=== PATIENT | female | born 1945 | race Caucasian/White ===

== ENCOUNTER → 2018-01-02 15:05 | Outpatient (CLI) | payer OTHER, SELFPAY ==
[2018-01-02 15:24] LABS: Add Manual Diff / Slide Review NO; Basophils Percent Auto 0.8 % (0-2); Eosinophils Percent Auto 1.3 % (2-4); Hematocrit 43.4 % (36-46); Hemoglobin 14.9 g/dL (12.0-16.0); Lymphocytes Percent Auto 21.4 % (25-40); Mean Corpuscular HGB Conc 34.4 % (30-36); Monocytes Percent Auto 9.3 % (3-14); Neutrophils Absolute Auto 4200 /uL (3000-5900); Neutrophils Percent Auto 67.2 % (50-75); Platelet Count 220 X10^3/uL (150-400); Red Blood Cell Count 4.52 X10^6/uL (4.0-5.2); Red Cell Distribution Width 12.9 % (11.6-14.8); White Blood Cell Count 6.2 X10^3/uL (4.5-11.0)
[2018-01-02 15:39] LABS: Alanine Aminotransferase 23 IU/L (9-52); Albumin Globulin Ratio 1.4 (1.0-2.8); Alkaline Phosphatase 49 U/L (38-126); Aspartate Aminotransferase 20 IU/L (14-36); BUN Creatinine Ratio 18.9 (6-22); Bilirubin Total 0.3 mg/dL (0.2-1.3); Blood Urea Nitrogen 17 mg/dL (7-17); Calcium 9.1 mg/dL (8.4-10.2); Carbon Dioxide 29 mmol/L (22-32); Chloride 101 mmol/L (98-107); Estimated Glomerular Filt Rate > 60.0 mL/min (>60); Globulin 2.9 g/dL (1.7-4.1); Glucose 118 mg/dL (80-110); HEMOLYSIS < 15 (0-50); Potassium 4.7 mmol/L (3.4-5.1); Sodium 140 mmol/L (137-145); Total Protein 6.9 g/dL (6.3-8.2)
[2018-01-04 15:24] LABS: Cancer Antigen 27.29 12 U/mL (< 38)
== END ==
PROVIDERS: Family Provider Family Medicine; PCP Family Medicine; Visit Provider Nurse Practitioner Gerontology
DX: C50.912 Malignant neoplasm of unspecified site of left female breast (principal)
CPT/HCPCS: 36415; 80053; 85025; 86300

== ENCOUNTER → 2018-07-25 11:04 | Outpatient (CLI) | payer OTHER, SELFPAY ==
--- NOTE | 2018-07-25 | DI.MG.S_ITS ---
BILATERAL DIGITAL SCREENING MAMMOGRAM 3D/2D WITH CAD: 07/25/2018 CLINICAL: Routine screening. Personal history of left breast cancer. Comparison is made to exams dated: 07/13/2017 mammogram, 07/06/2016 mammogram, and 06/30/2015 mammogram - [facility]. There are scattered fibroglandular elements in both breasts. Current study was also evaluated with a Computer Aided Detection (CAD) system. There are benign post operative findings in the left breast. There also are benign calcifications in the left breast. No significant masses, calcifications, or other findings are seen in either breast. There has been no significant interval change. IMPRESSION: There is no mammographic evidence of malignancy. A 1 year screening mammogram is recommended. This exam was interpreted at Station ID: [id number]. NOTE: For mammograms, a report in lay terms will be sent to the patient. Approximately 15% of breast malignancies will not be visualized mammographically. In the management of a palpable breast mass, a negative mammogram must not discourage biopsy of a clinically suspicious lesion. Electronically Signed By: Johnny guerrero/[email or web address]:07/25/2018 16:27:17 copy to: Mara Carter letter sent: Normal Exam ACR BI-RADS Category 2: Benign Finding(s) 3342F
[2018-07-25 11:26] LABS: Add Manual Diff / Slide Review NO; Basophils Absolute Auto 100 /uL (0-100); Basophils Percent Auto 1.3 % (0-2); Eosinophils Absolute Auto 100 /uL (0-450); Eosinophils Percent Auto 2.6 % (2-4); Hematocrit 46.7 % (36-46); Hemoglobin 15.6 g/dL (12.0-16.0); Lymphocytes Absolute Auto 1300 /uL (1100-4500); Lymphocytes Percent Auto 26.6 % (25-40); Mean Corpuscular HGB Conc 33.4 % (30-36); Mean Corpuscular Hemoglobin 32.1 PG (26-34); Mean Corpuscular Volume 96.1 fL (80-100); Monocytes Absolute Auto 700 /uL (0-900); Monocytes Percent Auto 14.8 % (3-14); Neutrophils Absolute Auto 2700 /uL (1500-7000); Neutrophils Percent Auto 54.7 % (50-75); Platelet Count 229 X10^3/uL (150-400); Red Blood Cell Count 4.86 X10^6/uL (4.0-5.2); Red Cell Distribution Width 13.1 % (11.6-14.8); White Blood Cell Count 4.9 X10^3/uL (4.5-11.0)
[2018-07-25 11:48] LABS: Alanine Aminotransferase 23 IU/L (9-52); Albumin 4.2 g/dL (3.5-5.0); Albumin Globulin Ratio 1.4 (1.0-2.8); Alkaline Phosphatase 50 U/L (38-126); Aspartate Aminotransferase 20 IU/L (14-36); BUN Creatinine Ratio 23.8 (6-22); Bilirubin Total 0.4 mg/dL (0.2-1.3); Blood Urea Nitrogen 19 mg/dL (7-17); Carbon Dioxide 26 mmol/L (22-32); Chloride 102 mmol/L (98-107); Estimated Glomerular Filt Rate > 60.0 mL/min (>60); Globulin 3.1 g/dL (1.7-4.1); Glucose 102 mg/dL (80-110); HEMOLYSIS 18 (0-50); Potassium 4.4 mmol/L (3.4-5.1); Sodium 138 mmol/L (137-145); Total Protein 7.3 g/dL (6.3-8.2)
[2018-07-28 19:49] LABS: Cancer Antigen 27.29 13 U/mL (< 38)
== END ==
PROVIDERS: Family Provider Family Medicine; PCP Family Medicine; Visit Provider Nurse Practitioner Gerontology
DX: Z12.31 Encounter for screening mammogram for malignant neoplasm of breast (principal); Z85.3 Personal history of malignant neoplasm of breast
CPT/HCPCS: 36415; 77063; 77067; 80053; 85025; 86300

== ENCOUNTER 2019-04-06 14:32 | Emergency (ER) | payer OTHER, SELFPAY ==
--- NOTE | 2019-04-06 14:36 | ED.UPPEXIN ---
HPI - Extremity Injury (Upper) General Stated Complaint: fall, left shoulder/arm pain Time Seen by Provider: 04/06/19 14:36 Related Data Home Medications Medication Instructions Recorded Confirmed ASCORBIC ACID (#VITAMIN C) 500 mg PO Q DAY #0 01/24/13 08/01/18 acetaminophen [Tylenol Extra 1,000 mg PO Q4H #0 01/24/13 08/01/18 Strength] pseudoephedrine HCl 60 mg PO Q6HP #0 01/24/13 08/01/18 levothyroxine [Synthroid] 88 mcg PO QAM #0 03/24/16 08/01/18 VITAMIN D (Vitamin D3) 1,000 iu PO QDAY #0 07/19/16 08/01/18 [XYZAL] 1 cap PO DAILY #0 01/31/17 08/01/18 triamcinolone acetonide 1 brian TOPICAL PRN PRN #0 07/18/17 08/01/18 Previous Rx's Medication Instructions Recorded ibuprofen 200 mg PO NEEDED #2 01/24/13 Allergies Allergy/AdvReac Type Severity Reaction Status Date / Time cephalexin Allergy Unknown Verified 08/01/18 11:18 clindamycin Allergy Unknown Verified 08/01/18 11:18 Sulfa (Sulfonamide AdvReac Intermediate PASSED OUT Verified 08/01/18 11:18 Antibiotics) PRESERVATIVES Allergy Unknown Uncoded 10/05/17 12:02 SEASONAL Allergy Unknown Uncoded 10/05/17 12:02 Discharge Plan Departure Prescriptions: No Action ASCORBIC ACID (#VITAMIN C) 500 mg PO Q DAY Qty: 0 RF: 0 acetaminophen [Tylenol Extra Strength] 500 MG tablet 1,000 mg PO Q4H Qty: 0 RF: 0 pseudoephedrine HCl 30 MG tablet 60 mg PO Q6HP Qty: 0 RF: 0 ibuprofen 200 MG tablet 200 mg PO NEEDED Qty: 2 RF: 0 levothyroxine [Synthroid] 88 MCG tablet 88 mcg PO QAM Qty: 0 RF: 0 VITAMIN D (Vitamin D3) 1,000 iu PO QDAY Qty: 0 RF: 0 [XYZAL] 1 cap PO DAILY Qty: 0 RF: 0 triamcinolone acetonide 0.1 % cream 1 brian Topical PRN PRN (Reason: unknown) Qty: 0 RF: 0
[2019-04-06 14:38] VITALS: BP 144/75; PULSE 87; RESP 18; TEMP 36.2; O2SAT 100
--- NOTE | 2019-04-06 14:59 | DI.CT.S_ITS ---
PROCEDURE: CT HEAD/BRAIN WO CON INDICATIONS: fall/ hit head/ altered, ASA 81 mg daily TECHNIQUE: Noncontrast 4.5 mm thick angled axial sections acquired from the foramen magnum to the vertex, with coronal and sagittal reformats. For radiation dose reduction, the following was used: automated exposure control, adjustment of mA and/or kV according to patient size. COMPARISON: [facility], CT, SINUS SCREEN WO CONTRAST, 11/02/2012, 11:26. [facility], CT, HEAD WITHOUT CONTRAST, 09/28/2011, 11:11. FINDINGS: Image quality: Excellent. CSF spaces: Basal cisterns are patent. No extra-axial fluid collections. The ventricles are symmetric in size and shape. Brain: No intracranial bleeds or masses. There is cerebral volume loss for age, with resultant ventricular and sulcal prominence. There are periventricular and deep white matter chronic small vessel ischemic changes. There is intracranial internal carotid artery atherosclerosis. Skull and face: Calvarium and visualized facial bones appear intact, without suspicious lesions. Sinuses: Visualized sinuses and mastoids are clear. IMPRESSION: No acute intracranial hemorrhage is seen. No acute intracranial process is seen. Note is made of age-appropriate brain parenchymal volume loss and chronic small vessel ischemic changes. Dictated by: Alex Walton M.D. on 04/06/2019 at 14:48 Approved by: Alex Walton M.D. on 04/06/2019 at 14:49
--- NOTE | 2019-04-06 15:00 | DI.RAD.S_ITS ---
PROCEDURE: XR HUMERUS LT 2V INDICATIONS: fall / pain houlder and mid humerus. TECHNIQUE: 2 views of the humerus were acquired. COMPARISON: None. FINDINGS: Bones: No fractures or dislocations except that the humeral head and neck reviously described. No suspicious bony lesions. Soft tissues: No suspicious soft tissue calcifications. IMPRESSION: The humerus is partially visualized over its full length, in this patient with severe comminuted humeral head and neck fracture. The elbow is seen on the oblique lateral view only. The shaft of the humerus is not fractured. Dictated by: Liam Smyth M.D. on 04/06/2019 at 16:11 Approved by: Liam Smyth M.D. on 04/06/2019 at 16:12
--- NOTE | 2019-04-06 15:00 | DI.RAD.S_ITS ---
PROCEDURE: XR SHOULDER LT MIN 2V INDICATIONS: fall / pain houlder and mid humerus. TECHNIQUE: 2 views of the shoulder were acquired. COMPARISON: None. FINDINGS: Bones: No dislocations. No suspicious bony lesions. Visualized ribs appear intact. There is a complex comminuted impacted intra-articular fracture involving the left humeral head and neck. Soft tissues: No suspicious soft tissue calcifications. IMPRESSION: Prominently comminuted and displaced left humeral head/neck fracture. Dictated by: Liam Smyth M.D. on 04/06/2019 at 16:10 Approved by: Liam Smyth M.D. on 04/06/2019 at 16:11
--- NOTE | 2019-04-06 15:24 | PC.NURSE ---
pt has good pulses in her left arm. pt is in a large amount of pain. aware.
[2019-04-06 15:42] VITALS: BP 152/107; PULSE 84; RESP 18; O2SAT 99
[2019-04-06 15:46] LABS: Add Manual Diff / Slide Review NO; Basophils Absolute Auto 0 /uL (0-100); Basophils Percent Auto 0.5 % (0-2); Eosinophils Absolute Auto 0 /uL (0-450); Eosinophils Percent Auto 0.3 % (2-4); Hematocrit 47.6 % (36-46); Hemoglobin 16.3 g/dL (12.0-16.0); Lymphocytes Absolute Auto 1200 /uL (1100-4500); Lymphocytes Percent Auto 15.8 % (25-40); Mean Corpuscular HGB Conc 34.4 % (30-36); Mean Corpuscular Hemoglobin 32.5 PG (26-34); Mean Corpuscular Volume 94.7 fL (80-100); Monocytes Absolute Auto 600 /uL (0-900); Monocytes Percent Auto 7.9 % (3-14); Neutrophils Absolute Auto 5500 /uL (1500-7000); Neutrophils Percent Auto 75.5 % (50-75); Platelet Count 240 X10^3/uL (150-400); Red Blood Cell Count 5.02 X10^6/uL (4.0-5.2); Red Cell Distribution Width 13.3 % (11.6-14.8); White Blood Cell Count 7.3 X10^3/uL (4.5-11.0)
[2019-04-06] MEDS: HYDROMORPHONE 1 MG INJ IV (15:59)
[2019-04-06 16:01] LABS: Alanine Aminotransferase 28 IU/L (9-52); Albumin 4.7 g/dL (3.5-5.0); Albumin Globulin Ratio 1.4 (1.0-2.8); Alkaline Phosphatase 68 U/L (38-126); Aspartate Aminotransferase 27 IU/L (14-36); BUN Creatinine Ratio 17.8 (6-22); Bilirubin Total 0.6 mg/dL (0.2-1.3); Blood Urea Nitrogen 16 mg/dL (7-17); Calcium 9.6 mg/dL (8.4-10.2); Carbon Dioxide 23 mmol/L (22-32); Chloride 98 mmol/L (98-107); Estimated Glomerular Filt Rate > 60.0 mL/min (>60); Globulin 3.4 g/dL (1.7-4.1); Glucose 149 mg/dL (80-110); HEMOLYSIS < 15 (0-50); Potassium 3.9 mmol/L (3.4-5.1); Sodium 137 mmol/L (137-145); Total Protein 8.1 g/dL (6.3-8.2)
[2019-04-06 16:03] LABS: PTT Partial Thromboplastin Tim 28 SECONDS (26.4-36.2)
--- NOTE | 2019-04-06 16:09 | ED.FALL ---
HPI - Fall General Chief Complaint: Fall Stated Complaint: fall, left shoulder/arm pain Time Seen by Provider: 04/06/19 14:39 Source: patient Mode of arrival: Wheelchair Limitations: no limitations History of Present Illness HPI Narrative: 73-year-old female nonsmoker presents by EMS for evaluation of severe left arm pain after a ground level mechanical fall just prior to arrival. She was in her normal state of health and feeling fine when she was walking up the driveway and tripped, falling onto her left arm. She did not hit her head as far she knows and has no neck pain. She denies any back pain and states her hips and lower extremities are fine. She has significant pain in her left shoulder, significantly worse with any range of motion. She denies any numbness, tingling or weakness. She denies any prodromal symptoms such as dizziness, weakness or lightheadedness. She did become near syncopal after the fall, presumably secondary to pain MD complaint: fall Onset (ago): minute(s) Fall from: standing Fall witnessed: no Place fall occurred: home Loss of consciousness: none Prolonged down time: no Symptoms prior to fall: none Context: tripped/slipped Related Data Home Medications Medication Instructions Recorded Confirmed acetaminophen [Tylenol Extra 1,000 mg PO Q4H PRN #0 01/24/13 04/06/19 Strength] ascorbic acid (vitamin C) 500 mg PO DAILY #0 01/24/13 04/06/19 levothyroxine [Synthroid] 88 mcg PO QAM #0 03/24/16 04/06/19 levocetirizine [Xyzal] 5 mg PO DAILY #0 01/31/17 04/06/19 triamcinolone acetonide 1 brian TOPICAL PRN PRN #0 07/18/17 04/06/19 aspirin 81 mg PO DAILY 04/06/19 04/06/19 calcium carbonate [Calcium 600] 600 mg PO DAILY 04/06/19 04/06/19 cholecalciferol (vitamin D3) 1,000 unit PO DAILY 04/06/19 04/06/19 [Vitamin D3] fluticasone propionate 2 spray INTRANASAL DAILY 04/06/19 04/06/19 ibuprofen 200 mg PO NEEDED PRN 04/06/19 04/06/19 ranitidine HCl 150 mg PO DAILY 04/06/19 04/06/19 Previous Rx's Medication Instructions Recorded hydrocodone-acetaminophen 1 tab PO Q4-6H PRN #30 tab 04/06/19 ondansetron 4 mg PO TID-QID PRN #10 tab 04/06/19 Allergies Allergy/AdvReac Type Severity Reaction Status Date / Time cephalexin Allergy Unknown Verified 04/06/19 14:43 clindamycin Allergy Unknown Verified 04/06/19 14:43 Sulfa (Sulfonamide AdvReac Intermediate PASSED OUT Verified 04/06/19 14:43 Antibiotics) PRESERVATIVES Allergy Unknown Uncoded 10/05/17 12:02 SEASONAL Allergy Unknown Uncoded 10/05/17 12:02 Review of Systems Constitutional Constitutional: Denies chills, Denies fatigue, Denies fever(s), Denies frequent falls, Denies lethargy and Denies weakness Eyes Eyes: Denies change in vision, Denies eye discharge, Denies irritation and Denies loss of vision ENT Ears, Nose, Mouth, and Throat: Denies change in voice, Denies dizziness, Denies neck pain, Denies sore throat and Denies throat swelling Cardiovascular Cardiovascular: Denies chest pain, Denies irregular heart rhythm, Denies lightheadedness, Denies palpitations, Denies dyspnea, Denies dyspnea on exertion and Denies orthopnea Respiratory Respiratory: Denies cough, Denies dyspnea, Denies dyspnea on exertion and Denies wheezing Gastrointestinal Gastrointestinal: Denies abdominal pain, Denies change in bowel habits, Denies diarrhea, Denies nausea and Denies vomiting Genitourinary Genitourinary: Denies hematuria, Denies flank pain, Denies urinary incontinence and Denies urinary urgency Musculoskeletal Musculoskeletal: Denies back pain, Reports limited range of motion, Denies muscle weakness, Denies neck pain, Denies numbness and Denies tingling Integumentary/Breasts Skin/Breast: Denies pruritus, Denies erythema, Denies rash and Denies wounds Neurologic Neurologic: Denies behavioral changes, Denies confusion, Denies dizziness, Denies frequent falls, Denies loss of vision, Denies numbness, Denies tingling and Denies weakness Psychiatric Psychiatric: Denies anxiety, Denies behavioral changes, Denies confusion, Denies depression, Denies homicidal ideation and Denies suicidal ideation Endocrine Endocrine: Denies fatigue, Denies flushing and Denies palpitations Hematologic/Lymphatic Hematologic/Lymphatic: Denies easy bruising Allergic/Immunologic Allergic/Immunologic: Denies urticaria, Denies throat swelling and Denies wheezing Patient History Medical/Surgical History Social History Smoking Status: Never smoker Family/Social History Social History Smoking Status: Never smoker alcohol intake frequency: 0-2 drinks per day Substance Use Type: does not use Exam Narrative Exam Narrative: GENERAL: [73] year old patient appears stated age. Well-nourished, well-developed patient, in mild distress. Obviously in pain. GCS 15 HEAD: Subtle abrasion on left congregational, no laceration or evidence of depressed skull fracture. Atraumatic. Normocephalic. EYES: Pupils equal round and reactive. Extraocular motions intact. No scleral icterus. No injection or drainage. ENT: Nose without bleeding, purulent drainage. Throat without erythema, tonsillar hypertrophy or exudate. Airway patent. NECK: Trachea midline. Non tender CARDIOVASCULAR: Regular rate and rhythm without murmurs, gallops, or rubs. RESPIRATORY: Clear to auscultation. Breath sounds equal bilaterally. No wheezes, rales, or rhonchi. GASTROINTESTINAL: Abdomen soft, non-tender, nondistended. EXTREMITIES: Significant pain with any range of motion of left upper extremity. This is closed, isolated neurovascularly intact. No pain with palpation to elbow or wrist. BACK: Nontender without deformity or crepitance. No flank tenderness. NEURO: AOx3. SKIN: No rash or erythema of visible areas Initial Vital Signs Initial Vital Signs: Vital Signs Temperature 97.2 F L 04/06/19 14:38 Pulse Rate 87 04/06/19 14:38 Respiratory Rate 18 04/06/19 14:38 Blood Pressure 144/75 H 04/06/19 14:38 Pulse Oximetry 100 04/06/19 14:38 Const General: cooperative and well developed Nutritional Appearance: well nourished Orientation: alert, awake, oriented x3 and not confused [facility] Head: normocephalic and atraumatic Ears: external ears normal and TM's normal bilaterally Nose: external nose normal and No nasal discharge Face and sinus: sinuses nontender, face symmetric, no sinus tenderness and No dry mucous membranes Mouth: oral mucosae normal and moist mucous membranes Teeth and gingiva: dentition normal Throat: tonsils normal and uvula midline Eyes General: appearance normal, both eyes and all related structures Eyelids: eyelids normal Conjunctivae: conjunctivae normal Sclera: sclerae normal Pupils: PERRL EOM: EOM intact bilaterally Neck Neck: normal visual inspection, trachea midline, No lymphadenopathy, No midline deformity and No JVD Lymphatic: No lymphedema Chest Chest: normal inspection of the chest Resp Effort & Inspection: normal respiratory effort, able to speak in complete sentences, no respiratory distress and no use of accessory muscles Auscultation: clear to auscultation bilaterally, no rales, no rhonchi and no wheezes Cardio Rate: regular rate Rhythm: regular rhythm Heart Sounds: no click, no gallops, no murmurs and no rubs Pulses: normal peripheral pulses GI Inspection: non-distended Palpation: soft, no hepatosplenomegaly, No guarding, No pulsatile mass and No tender Auscultation: normal bowel sounds Back/Spine/Pelvis Back: No CVA tenderness Cervical Spine: cervical ROM normal and No pain with cervical ROM Thoracic/Lumbar Spine: thoracic and lumbar spine normal to inspection Skin General: no rashes or lesions noted, No jaundice and No petechiae Neuro General: alert, oriented x3, gait normal and no focal motor deficits Speech: speech normal Extrem General: full ROM, no clubbing, cyanosis or edema, no pedal edema and no calf tenderness Psych Appearance: well kempt Mental Status: mental status grossly normal Attitude: cooperative Thought Content: normal and suicidality Judgment: judgment good Procedures Orthopedic Splinting/Casting Injury #1: Side: right Upper Extremity Injury Location: shoulder Upper Extremity Immobilizer: sling/shoulder immobilizer Post splinting neuro exam: intact Post splinting vascular exam: intact Placed by: Nursing Course Orders Ordered: ED Orders 04/06/19 13:59 Complete Blood Count AUTO DIFF Stat Comprehensive Metabolic Panel Stat Partial Thromboplastin Time Stat Prothrombin Time INR Stat 04/06/19 14:59 CT head/brain wo con Stat 04/06/19 15:00 XR humerus LT 2V Stat XR shoulder LT min 2V Stat 04/06/19 16:51 CT UE LT wo con Stat Discontinued Medications Hydromorphone HCl (Dilaudid) 1 mg IV NOW ONE Stop: 04/06/19 15:52 Last Admin: 04/06/19 15:59 Dose: 1 mg Documented by: KAREN Hydromorphone HCl (Dilaudid) 1 mg IV NOW ONE Stop: 04/06/19 15:53 Last Admin: 04/06/19 15:53 Dose: Not Given Documented by: KAREN Midazolam HCl (Versed) 1 mg IV NOW ONE Stop: 04/06/19 16:44 Last Admin: 04/06/19 16:54 Dose: 1 mg Documented by: KAREN Midazolam HCl (Versed) 1 mg IV NOW ONE Stop: 04/06/19 17:03 Last Admin: 04/06/19 17:02 Dose: 1 mg Documented by: KAREN Vital Signs Vital signs: Vital Signs - 8 hr 04/06/19 14:38 04/06/19 15:42 04/06/19 16:30 Temperature 97.2 F L Pulse Rate 87 84 98 H Respiratory Rate 18 18 20 Blood Pressure 144/75 H Blood Pressure [Right Wrist] 152/107 H 146/79 H Pulse Oximetry 100 99 100 04/06/19 17:28 04/06/19 17:33 04/06/19 18:30 Temperature Pulse Rate 76 65 71 Respiratory Rate 20 11 L 16 Blood Pressure Blood Pressure [Right Wrist] 138/82 97/63 95/67 Pulse Oximetry 99 90 L 100 MDM - Fall Lab Data Result diagrams: 04/06/19 13:59 04/06/19 13:59 Labs: Lab Results 04/06/19 04/06/19 04/06/19 Range/Units 13:59 13:59 13:59 WBC 7.3 (4.5-11.0) X10^3/uL RBC 5.02 (4.0-5.2) X10^6/uL Hgb 16.3 H (12.0-16.0) g/dL Hct 47.6 H (36-46) % MCV 94.7 (80-100) fL MCH 32.5 (26-34) PG MCHC 34.4 (30-36) % RDW 13.3 (11.6-14.8) % Plt Count 240 (150-400) X10^3/uL Neut % (Auto) 75.5 H (50-75) % Lymph % (Auto) 15.8 L (25-40) % Price % (Auto) 7.9 (3-14) % Eos % (Auto) 0.3 L (2-4) % Baso % (Auto) 0.5 (0-2) % Neut # (Auto) 5500 (9427-1663) /uL Lymph # (Auto) 1200 (7042-3535) /uL Price # (Auto) 600 (0-900) /uL Eos # (Auto) 0 (0-450) /uL Baso # (Auto) 0 (0-100) /uL PT 11.0 (10.1-12.7) SECONDS INR 1.0 (0.9-1.3) APTT 28 (26.4-36.2) SECONDS Sodium 137 (137-145) mmol/L Potassium 3.9 (3.4-5.1) mmol/L Chloride 98 (98-107) mmol/L Carbon Dioxide 23 (22-32) mmol/L BUN 16 (7-17) mg/dL Creatinine 0.90 (0.52-1.04) mg/dL Estimated GFR > 60.0 (>60) mL/min BUN/Creatinine Ratio 17.8 (6-22) Glucose 149 H (80-110) mg/dL Calcium 9.6 (8.4-10.2) mg/dL Total Bilirubin 0.6 (0.2-1.3) mg/dL AST 27 (14-36) IU/L ALT 28 (9-52) IU/L Alkaline Phosphatase 68 (38-126) U/L Total Protein 8.1 (6.3-8.2) g/dL Albumin 4.7 (3.5-5.0) g/dL Globulin 3.4 (1.7-4.1) g/dL Albumin/Globulin Ratio 1.4 (1.0-2.8) Imaging Data Humerus / Shoulder: Radiologist's impression: [address] [address] XRay Report Signed Patient: Callie Berkowitz FMR#: [id number] : 7Acct:[id number] Age/Sex: 73 / FDate of Service: 04/06/19 Loc: ED Accession Number: [id number] Procedure: XR humerus LT 2V Ordering Provider: Manuel Sahu D.O. PROCEDURE: XR HUMERUS LT 2V INDICATIONS: fall / pain houlder and mid humerus. TECHNIQUE: 2 views of the humerus were acquired. COMPARISON: None. FINDINGS: Bones: No fractures or dislocations except that the humeral head and neck reviously described. No suspicious bony lesions. Soft tissues: No suspicious soft tissue calcifications. IMPRESSION: The humerus is partially visualized over its full length, in this patient with severe comminuted humeral head and neck fracture. The elbow is seen on the oblique lateral view only. The shaft of the humerus is not fractured. Dictated by: Liam Smyth M.D. on 04/06/2019 at 16:11 Approved by: Liam Smyth M.D. on 04/06/2019 at 16:12 Chart Viewer Diagnostics DATE TYPE STATUS AUTHOR Hx 04/06/19 15:00 Liam Smyth 04/06/19 15:00 Liam Smyth 04/06/19 14:59 Alex Walton 07/25/18 00:00 RekhaCallie Terrazas 73, F1 [facility], Main ED R04 Fall Search Chart No Data to Display NF - Not included in interaction checking PASSED OUT ONSET Today 15:42 Callie Berkowitz 73 F 1945 [place] [address] XRay Report Signed Patient: Callie Berkowitz FMR#: [id number] : [id number]:[id number] Age/Sex: 73 / FDate of Service: 04/06/19 Loc: ED Accession Number: [id number] Procedure: XR shoulder LT min 2V Ordering Provider: Manuel Sahu D.O. PROCEDURE: XR SHOULDER LT MIN 2V INDICATIONS: fall / pain houlder and mid humerus. TECHNIQUE: 2 views of the shoulder were acquired. COMPARISON: None. FINDINGS: Bones: No dislocations. No suspicious bony lesions. Visualized ribs appear intact. There is a complex comminuted impacted intra-articular fracture involving the left humeral head and neck. Soft tissues: No suspicious soft tissue calcifications. IMPRESSION: Prominently comminuted and displaced left humeral head/neck fracture. Dictated by: Liam Smyth M.D. on 04/06/2019 at 16:10 Approved by: Liam Smyth M.D. on 04/06/2019 at 16:11 Discharge Plan Departure Patient Disposition: Home Clinical Impression: Fracture of proximal end of humerus Qualifiers: Encounter type: initial encounter Fracture type: closed Fracture morphology: other fracture Fracture alignment: displaced Laterality: left Qualified Code(s): S42.292A - Other displaced fracture of upper end of left humerus, initial encounter for closed fracture Discharge Date/Time: 04/06/19 18:54 Instructions: Humeral Shaft Fracture Activity Restrictions/Additional Instructions: *You have been diagnosed with [comminuted left proximal humerus fracture] *What to do: *Take medications as directed *Follow up with your primary care provider in 2-3 days, call for an appointment. Let them know you were seen in the Emergency Department and that we ask that you be seen in follow up *Return to ER if you should have any new, worsening or concerning symptoms, such as [increasing pain, numbness, tingling, weakness or other bothersome symptoms] Prescriptions: New hydrocodone-acetaminophen 5-325 mg tablet 1 tab PO Q4-6H PRN (Reason: pain) Qty: 30 RF: 0 ondansetron 4 mg tablet,disintegrating 4 mg PO TID-QID PRN (Reason: nausea and vomiting) Qty: 10 RF: 0 No Action acetaminophen [Tylenol Extra Strength] 500 MG tablet 1,000 mg PO Q4H PRN (Reason: PAIN) Qty: 0 RF: 0 ascorbic acid (vitamin C) 500 mg Tablet 500 mg PO DAILY Qty: 0 RF: 0 levothyroxine [Synthroid] 88 MCG tablet 88 mcg PO QAM Qty: 0 RF: 0 levocetirizine [Xyzal] 5 mg Tablet 5 mg PO DAILY Qty: 0 RF: 0 triamcinolone acetonide 0.1 % cream 1 brian Topical PRN PRN (Reason: unknown) Qty: 0 RF: 0 aspirin 81 mg Tablet,Chewable 81 mg PO DAILY RF: 0 calcium carbonate [Calcium 600] 600 mg calcium (1,500 mg) Tablet 600 mg PO DAILY RF: 0 ranitidine HCl 150 mg Tablet 150 mg PO DAILY RF: 0 fluticasone propionate 50 mcg/actuation [place],Suspension 2 spray INTRANASAL DAILY RF: 0 cholecalciferol (vitamin D3) [Vitamin D3] 1,000 unit Capsule 1,000 unit PO DAILY RF: 0 ibuprofen 200 MG tablet 200 mg PO NEEDED PRN (Reason: PAIN) RF: 0 Referrals: Vanessa Dozier MD [Physician] - Mara Carter MD [Primary Care Provider] -
[2019-04-06 16:30] VITALS: BP 146/79; PULSE 98; RESP 20; O2SAT 100
--- NOTE | 2019-04-06 16:51 | DI.CT.S_ITS ---
PROCEDURE: CT UE LT WO CON INDICATIONS: comminuted prox humerus fx, per ortho TECHNIQUE: Noncontrast 1-1.5 mm thick sections acquired from the acromioclavicular joint to the inferior scapula, with coronal and sagittal reformatting. COMPARISON: [facility], CR, XR HUMERUS LT 2V, 04/06/2019, 15:06. FINDINGS: Image quality: Excellent. Bones: There is a comminuted fracture of the left humeral head and neck. There is associated mild anterior displacement of the humeral shaft component with posterior angulation of the humeral head components. There is also medial displacement of the humeral shaft component by approximately 1.7 cm. There is displacement of the greater tuberosity component by approximately 1.7 cm. The lesser tuberosity component is displaced by 0.6 cm. Findings are compatible with a Neer 3 part fracture. The articular surface of the humeral head appears congruent with the glenoid. Remaining visualized osseous structures appear intact. Soft tissues: There is periarticular soft tissue swelling and edema around the left glenohumeral joint. The visualized lungs demonstrate no pneumothorax. IMPRESSION: 1. Findings compatible with a Neer 3 part comminuted fracture of the left humeral head and neck. Dictated by: Johnny Da Silva M.D. on 04/06/2019 at 17:22 Approved by: Johnny Da Silva M.D. on 04/06/2019 at 17:29
[2019-04-06] MEDS: MIDAZOLAM 2 MG/2 ML VIAL 1 MG IV ×2 (16:54→17:02)
[2019-04-06 17:28] VITALS: BP 138/82; PULSE 76; RESP 20; O2SAT 99
[2019-04-06 17:33] VITALS: BP 97/63; PULSE 65; RESP 11; O2SAT 90
[2019-04-06 18:30] VITALS: BP 95/67; PULSE 71; RESP 16; O2SAT 100
== END 2019-04-06 18:54 | disposition home or self-care (01) ==
PROVIDERS: Emergency Provider Emergency Medicine; Family Provider Family Medicine; PCP Family Medicine
DX: S42.292A Other displaced fracture of upper end of left humerus, initial encounter for closed fracture (principal); S09.90XA Unspecified injury of head, initial encounter; R55 Syncope and collapse; W01.0XXA Fall on same level from slipping, tripping and stumbling without subsequent striking against object, initial encounter
CPT/HCPCS: 36415; 70450; 73030; 73060; 73200; 80053; 85025; 85610; 85730; 96374; 96375; 96376; 99283; 99284; 99285; J1170; J2250

== ENCOUNTER → 2019-04-13 16:27 | Outpatient (CLI) | payer OTHER, SELFPAY ==
[2019-04-13 18:01] LABS: Add Manual Diff / Slide Review NO; Basophils Absolute Auto 0 /uL (0-100); Basophils Percent Auto 0.6 % (0-2); Eosinophils Absolute Auto 0 /uL (0-450); Eosinophils Percent Auto 0.5 % (2-4); Hematocrit 39.8 % (36-46); Hemoglobin 13.5 g/dL (12.0-16.0); Lymphocytes Absolute Auto 1100 /uL (1100-4500); Lymphocytes Percent Auto 17.4 % (25-40); Mean Corpuscular Hemoglobin 32.7 PG (26-34); Mean Corpuscular Volume 96.3 fL (80-100); Monocytes Absolute Auto 700 /uL (0-900); Monocytes Percent Auto 11.5 % (3-14); Neutrophils Absolute Auto 4400 /uL (1500-7000); Platelet Count 291 X10^3/uL (150-400); Red Blood Cell Count 4.13 X10^6/uL (4.0-5.2); Red Cell Distribution Width 13.2 % (11.6-14.8); White Blood Cell Count 6.3 X10^3/uL (4.5-11.0)
[2019-04-13 18:12] LABS: BUN Creatinine Ratio 21.4 (6-22); Blood Urea Nitrogen 15 mg/dL (7-17); Calcium 8.8 mg/dL (8.4-10.2); Carbon Dioxide 28 mmol/L (22-32); Chloride 101 mmol/L (98-107); Estimated Glomerular Filt Rate > 60.0 mL/min (>60); Glucose 113 mg/dL (80-110); HEMOLYSIS 28 (0-50); Potassium 4.5 mmol/L (3.4-5.1); Sodium 137 mmol/L (137-145)
== END ==
PROVIDERS: Family Provider Family Medicine; PCP Family Medicine; Visit Provider Orthopaedic Surgery
DX: Z01.818 Encounter for other preprocedural examination (principal); S42.292A Other displaced fracture of upper end of left humerus, initial encounter for closed fracture
CPT/HCPCS: 36415; 80048; 85025; 93005

== ENCOUNTER 2019-04-19 11:10 | Inpatient (IN) | payer OTHER, SELFPAY ==
[2019-04-17 08:27] VITALS: BMI 28.0
[2019-04-19] VITALS (12 sets, daily range): BP systolic 102–142; BP diastolic 60–86; PULSE 76–88; RESP 15–18; TEMP 35.8–37.2; O2SAT 96–100; BMI 28.0
[2019-04-19] MEDS: LACTATED RINGERS 1,000 ML 100 ML IV ×2 (11:46→15:19)
[2019-04-19] MEDS: VANCOMYCIN 1,000 MG/200 ML PIGGYBACK 200 MG IV (13:25)
--- NOTE | 2019-04-19 13:29 | PM.PREOP ---
Pre-operative Note Interval Note History & Physical reviewed/Exam performed by Physician: Yes Changes to H&P: No
--- NOTE | 2019-04-19 13:36 | SUR.PREOP ---
Block start time [1312] . Monitoring initiated and maintained throughout procedure. Oxygen and medications given per anesthesiologist instructions. Patient remained stable throughout procedure, no adverse reactions noted. Block end time [1330].
[2019-04-19] MEDS: GENTAMICIN 200 MG in SODIUM CHLORIDE 0.9% 100 ML 105 ML IV (13:50)
--- NOTE | 2019-04-19 14:07 | SUR.OPER ---
Beach chair with [place]/Pebbles shoulder positioner. Lower body on padded OR bed. Head in foam padded head cradle, secured with straps. Non-operative arm secured <90 degrees abduction. Pillow under knees. Safety belt at thigh. Cloth tape over blanket over lower legs.
[2019-04-19] MEDS: LIDOCAINE 1% W/EPI 20 ML INJ (14:23)
--- NOTE | 2019-04-19 16:11 | DI.RAD.S_ITS ---
PROCEDURE: XR SHOULDER LT MIN 2V INDICATIONS: TOTAL SHOULDER ATHROPLASTY TECHNIQUE: 2 views of the shoulder were acquired. COMPARISON: [facility], CR, XR SHOULDER 2+ VIEWS LEFT, 04/13/2019, 15:23. [facility], CT, CT UE LT WO CON, 04/06/2019, 16:52. [facility], CR, XR SHOULDER LT MIN 2V, 04/06/2019, 15:06. FINDINGS: Bones: There is left shoulder arthroplasty with prosthesis in anatomic alignment. No suspicious bony lesions. Visualized ribs appear intact. Soft tissues: No suspicious soft tissue calcifications. IMPRESSION: Left shoulder arthroplasty with prosthesis in anatomic alignment. Dictated by: Delmy Matta M.D. on 04/19/2019 at 17:14 Approved by: Delmy Matta M.D. on 04/19/2019 at 17:15
--- NOTE | 2019-04-19 16:14 | P.OP_ITS ---
Operative Date/Time/Diagnoses Date of procedure: 04/19/19 Time of procedure: 14:00 Pre-op diagnosis: Four part proximal humerus fracture Post-op diagnosis: same Procedure & Clinicians Procedure: Reverse total shoulder arthroplasty for proximal humerus fracture Same procedure as scheduled: Yes Indications: Displaced highly comminuted 4 part proximal humerus fracture Surgeon: Arturo Batista Knotting Machine Operator: Ariane Brumfield Anesthesia Type: General and Peripheral nerve block Operative Notes Findings: Highly comminuted displaced 4 part humerus fracture with the greater tuberosity in multiple pieces. The humeral head was facing the glenoid but was devoid of pretty much all soft tissue. No sign of any extension into the glenoid Closure Type: primary Specimen(s): none sent Prosthetic devices, grafts, tissues, transplants, or devices: Arthrex size 7 stem, 24 mm +2 lateralized base plate 4 screws were placed. 25 mm center screw 24 mm locking screw 16 mm locking screw 32 mm locking screw. Thirty-three mm glenoid sphere with +4 lateralization 36 neutral cup. Applied: drain(s) and implant(s) Estimated Blood Loss (mL): 150 Blood products transfused: none Procedure in detail: On date of service, Patient was met in the holding area. The operative site was signed and witnessed by the OR staff. The surgeries once again discussed with the patient and any remaining questions they had were answered fully. Patient was taken back to the operating theater and placed on the operating table in a supine position. Great care was taken to ensure that all bony prominences were properly padded. Patient was then placed into the beach chair position. The head and neck were properly positioned and secured. A timeout was performed verifying patient's name, procedure, and the operative site. The upper extremity was then prepped and draped in the normal sterile fashion. Previously, the bony anatomy and incision were marked out as well as injected with Marcaine with epinephrine. A deltopectoral approach was performed. 10 blade was used to incise the skin and fascial tissue. A deep knife was used to continue sharp dissection until the cephalic vein was visualized. The cephalic vein was dissected free allowing us to expose the deltopectoral interval. This interval was then developed. A [place] elevator was used to free up the deltoid of any scarring both superficially as well as deeply. The vein and the deltoid were taken laterally while the pectoralis was taken medially. This gave us good visualization of the strap muscles. The clavipectoral fascia was removed and the strap muscles were then retracted medially with the pectoralis. There is quite a bit of hematoma from the fracture. This was irrigated. Patient's greater tuberosity was retracted superiorly and posteriorly and multiple pieces. There was 1 large main piece. Sutures were passed through the tuberosity into the rotator cuff which allowed us to mobilize the greater tuberosity and the sutures were left in place when he came to reduce the tuberosity onto the shaft. The head was pretty much stripped of any soft tissue from the fracture and was removed. There was a lesser tuberosity fracture as well. And this was mobilized with the subscapularis using sutures in a similar fashion as the greater tuberosity. With the head removed and the tuberosities tagged with sutures, were able to address the glenoid. No sign of any fracture into the glenoid. Targeting guide was placed in a guidewire was placed in the center of the glenoid. This was then reamed and then a 24 mm base plate was secured with a center screw as well as locking screws. The 33 glenoid sphere was impacted into place and then a 2nd center screw was placed to compress the glenoid sphere on to the base plate. We then turned our attention back to the humerus. The fractured neck site was cleaned up with a rongeur getting rid of any bony spikes. It was then reamed and broached and a size 7 stem provided the best overall fit. +0 cup was placed in the humerus was reduced onto the glenoid sphere. This felt to be a solid reduction and there was not too much laxity as well as not so tight with the arm was over stretched. The components were from each other and the final stem was impacted in. Size 7 stem with the 36 neutral cup. This was then reduced on to the glenoid sphere and the shoulder was taken through range of motion once again was felt to be very stable. We then turned our attention to repairing the tuberosities. With our previous sutures we were able to bring the greater tuber osity back over to the stem and using the suture tunnels on the stem and neck were able to repair the rotator cuff as well as the large greater tuberosity piece back to the stem aligned with the neck. This was done similarly with the subscapularis and lesser tuberosity. Then additional sutures were placed around both the greater and lesser tuberosity for additional fixation to act like a tension band construct to secure the bone on to the implant. Shoulder was taken through range of motion once again, was no sign of any instability of the tuberosity or the rotator cuff repair to the stem. In the shoulder continued to be stable. The wound was then copiously irrigated and closed in layered fashion. Shoulder was then cleaned, dressed, and dried. Patient was placed into a sling and extubated and taken to the PACU in stable fashion. Complications: none Post-operative Condition: stable Disposition: PACU Plan for aftercare: Patient will be in the sling for 6 weeks. Patient's tuberosities were repaired back to the stem and will need to be protected. Okay for patient to come out of the sling to work on range of motion of the wrist and elbow. Patient can do pendulum motions. Okay to engage in passive forward flexion but no external rotation past 0?. No abduction beyond 0? the in the scapular plane.
[2019-04-19] MEDS: LACTATED RINGERS 1,000 ML 125 ML IV (18:18)
[2019-04-19 19:16] LABS: Estimated Glomerular Filt Rate > 60.0 mL/min (>60)
[2019-04-19] MEDS: ACETAMINOPHEN 325 MG TABLET 975 MG PO (19:47)
[2019-04-19] MEDS: DOCUSATE 100 MG CAPSULE PO (21:29)
[2019-04-19] MEDS: MAGNESIUM HYDROXIDE 30 ML UDC PO (21:29)
[2019-04-20 04:00] VITALS: BP 121/78; PULSE 78; RESP 17; TEMP 36.6; O2SAT 97
[2019-04-20] MEDS: LEVOTHYROXINE 88 MCG TABLET PO (05:55)
[2019-04-20 06:23] LABS: Hemoglobin 12.6 g/dL (12.0-16.0); Mean Corpuscular HGB Conc 34.1 % (30-36); Mean Corpuscular Hemoglobin 32.8 PG (26-34); Platelet Count 385 X10^3/uL (150-400); Red Blood Cell Count 3.85 X10^6/uL (4.0-5.2); Red Cell Distribution Width 13.4 % (11.6-14.8); White Blood Cell Count 10.8 X10^3/uL (4.5-11.0)
[2019-04-20 08:15] VITALS: BP 122/82; PULSE 88; RESP 17; TEMP 36.8; O2SAT 99
[2019-04-20] MEDS: ACETAMINOPHEN 325 MG TABLET 975 MG PO (09:54)
--- NOTE | 2019-04-20 11:26 | PT.IIE ---
Current Diagnoses Other displaced fracture of upper end of left humerus, initial encounter for closed fracture (04/19/19) Surgery Performed Operation Date: 04/19/19 13:15 Actual Procedures p Total Shoulder Arthroplasty - Reverse (Left) - Arturo Batista MD Surgical History (Last Updated 04/17/19 @ 09:04 by Linda Crowley, RN) Hx of left mastectomy (Acute) Hx of tubal ligation (Acute) S/P lumpectomy, left breast (Acute ~2012) Medical History (Last Updated 04/17/19 @ 13:42 by Linda Crowley RN) Acid reflux (Acute) Breast cancer, left (Acute ~2012) Port-A-Cath in place (Acute ~06/2012) Right Achilles tendinitis (Acute) Thyroid disease (Acute) Physical Therapy Inpatient Evaluation/Re-Eval M1 PT/OT-IP Prior Functional Status Start: 04/20/19 08:30 Freq: NEEDED Status: Active Protocol: Document 04/20/19 08:45 (Rec: 04/20/19 11:26 [email or web address]) Medical Review Prior Functional Status Medical History Reviewed Yes Diet/Fluid Consistency Regular Communication no deficits noted. able to make needs known Mobility and Gait Pt is independent with all mobility without AD. Activities of Daily Living and IADL's independent with ADLs and IADLs. Pt's assisted in sponge bath after injury. Social History Household Members spouse Living Arrangements House Number of Floors (Floors) One Floor Number of Stairs To Enter/Railing? 2 VISHAL from garage or front entrance without railings Home Environment Standard Height Toilet,Tub/ Shower Doors Employment Status Retired Additional Social History Comment Pt lives with her in [place]. Her is very active and independent who will assist pt after d/c. Pt will participate outpatient PT at [facility]. M2 PT-IP Current Condition Start: 04/20/19 08:30 Freq: NEEDED Status: Active Protocol: Document 04/20/19 08:45 HH (Rec: 04/20/19 11:26 [email or web address]) Physical Therapy Current Condition Current Condition Evaluation Date 04/20/19 Treatment Diagnosis L Reverse TSA, difficulty in self care Onset Date 04/19/19 Precautions Shoulder Precautions Sling,PROM,Internal Rotation to Body,No External Rotation, No Abduction,Forward Flexion to 90 degrees,Pendulums Weight Bearing Status Weight Bearing Status Non-Weight Bearing M3 PT-IP Subjective Start: 04/20/19 08:30 Freq: NEEDED Status: Active Protocol: Document 04/20/19 08:45 HH (Rec: 04/20/19 11:26 [id number]) Subjective Physical Therapy Visit Type Type Initial Evaluation Visit Start Time 08:45 Visit Stop Time 09:30 Total Visit Minutes 45 Notes co-tx with SPT Tj. Pt's at bedside for CG training for the last 15 mins Number of BEAUTY SALES ADVISOR Visits 0 Physical Therapy Visit Comments Patient Comments I have no pain in my shoulder . Patient Goals To return home with Therapy Pain Assessment Pain Present Pain Present Denied Pain M4 PT-IP Mobility and Gait Start: 04/20/19 08:30 Freq: NEEDED Status: Active Protocol: Document 04/20/19 08:45 (Rec: 04/20/19 11:26 [id number]) PT-Transfer Assessment Sit to and From Stand Sit to and from Stand Independent,Use of Upper Extremities Equipment Transfer Assistive Device None Orthotic/Prosthetic Devices or Brace: Yes Transfers Transfer Destination Bed,Chair Transfer Technique Stand Step Pivot Transfer Ability Level of Assist Independent,Use of Upper Extremities Comments Mobility Comments Pt was up in chair upon assessment. She completed scooting and sit to stand with 1 UE push on armrest independently. Pt walked to sink counter to nikki/ doff armsling with assistance. Pt needed assistance from CORONA Henry and SPT to nikki her bra . Pt education provided on armsling and shoulder position . She then amb in AC unit without AD and SBA. Pt returned to bedchair after with safe transfer. call light within reach. Gait Assessment Gait Gait Assistance Required: Standby Assistance Distance (Feet) 220 Able to Maintain Weight Bearing Status Yes During Gait Assistive Devices Assistive Device None Orthotic/Prosthetic Devices or Brace: Yes Gait Deviations General Gait Pattern Antalgic Factors Limiting Gait Function Factors Limiting Gait Function Decreased Strength Comments Gait Comments Pt amb with slight antalgic gait due to her fall from few weeks ago but able to amb around AC unit without AD. Pt is very steady and no LOB noticed. Stair Climbing Assessment Evaluation Level of Assist On Stairs Minimal Assistance,1 Person Assistance Devices Stair Climbing Assistive Devices None Technique/Endurance Stair Climbing Direction Ascend and Descend Stair Climbing Technique Step Over Step,Step to Step Number of Steps Climbed 3 Query Text: Stair Climbing Set # Repetitions (reps) 2 Comments Stair Climbing Comments SKY LINE YARDER on R UE for step over pattern (ascending) SKY LINE YARDER on R UE for step to pattern (descending) PT-Balance Assessment Sitting Balance and Reactions Static Sitting Balance Ability Normal Dynamic Sitting Balance Ability Normal Standing Balance and Reactions Static Standing Balance Ability Normal Dynamic Standing Balance Ability Normal Device Used none M5 PT-IP Objective Assessments Start: 04/20/19 08:30 Freq: NEEDED Status: Active Protocol: Document 04/20/19 08:45 (Rec: 04/20/19 11:26 [email or web address]) Orientation Orientation/Cognition Level of Alertness Alert Orientation Name,Age,Birthday,Month,Date, Year,Day of Week,Place, Situation Language Function Ability No Deficits Noted Safety Awareness Understands Safety Issues Memory Description No Deficits Noted Gross Range of Motion Upper Extremity ROM Assessment Left Impaired Impairments Pt is able to mobilize her L fingers. Lower Extremity ROM Assessment Within Functional Limits Strength Upper Extremity Strength Assessment Left Impaired Lower Extremity Strength Assessment Within Functional Limits Coordination Assessment Gross Coordination Gross Coordination WNL M6 PT-IP Treatment Start: 04/20/19 08:30 Freq: NEEDED Status: Active Protocol: Document 04/20/19 08:45 (Rec: 04/20/19 11:26 [email or web address]) Physical Therapy Treatment Exercises Exercises Shoulder Pendulums Education Education Provided Precautions,Weight Bearing Status,Post-Op Packet,Safety Brace Education [place],Patient, Caregiver M7 PT-IP Assessment and Plan Start: 04/20/19 08:30 Freq: NEEDED Status: Active Protocol: Document 04/20/19 08:45 (Rec: 04/20/19 11:26 [email or web address]) PT Summary Assessment and Plan Potential Rehabilitation Potential Excellent Status of Condition at Evaluation Stable Summary Impairments Pain,ROM Progress Towards Goals Safe For Discharge Assessment Summary Pt is a low complexity s/p L reverse TSA due to a fall few weeks ago. Pt had no prior hx of falls prior to that who was very independent and active. Pt did very well regarding mobility. She was very safe and did not need AD/ assistance for mobility. She uses SKY LINE YARDER on RUE for stair climbing. Education on armsling placement, shd pendulums and post op precautions provided to both pt and . Pt will be d/c to home with 's assistance and Outpatient PT to improve mobility and strength. Frequency of Treatment Frequency Of Treatment Discharge Recommendations To Nursing Amount of Assist Needed Standby Assistance Discharge Recommendations PT Discharge Recommendations Home with Assistance, Outpatient PT Equipment Needed for Home Before Recommended shower bench/ Discharge chair for self bath/
--- NOTE | 2019-04-20 11:36 | PC.NURSE ---
Pt dressed and ready for discharge home with Spouse. IV removed, drain removed, new bandage applied to left knee abrasion. Caregiver training has been provided as ordered. Went over d/c instructions with Pt and Spouse-discussed d/c meds, time of last dose, reviewed stroke education, no driving while on narcotics, reviewed s/s of infection, drinking plenty of fluids to prevent constipation or dehydration, and follow up. Pt denies further questions and was taken out via w/c by MEDIA PLANNER / BUYER to POV with Spouse and all belongings.
== END 2019-04-20 11:40 | disposition home or self-care (01) | DRG 483 ==
PROVIDERS: Admitting Provider Orthopaedic Surgery; Family Provider Family Medicine; PCP Family Medicine; Visit Provider Orthopaedic Surgery
PROC: 0RRK00Z Replacement of Left Shoulder Joint with Reverse Ball and Socket Synthetic Substitute, Open Approach (ICD-10-PCS; CPT 23472; principal; 2019-04-19 13:15)
DX: S42.292A Other displaced fracture of upper end of left humerus, initial encounter for closed fracture (principal); W18.30XA Fall on same level, unspecified, initial encounter
CPT/HCPCS: 36415; 64450; 73030; 82565; 85027; 97161; 97530; 97535; C1776; J1100; J2250; J2704; J3010

== ENCOUNTER → 2019-07-27 11:05 | Outpatient (CLI) | payer OTHER, SELFPAY ==
[2019-04-19 19:18] VITALS: BMI 28.0
--- NOTE | 2019-07-27 11:06 | DI.MG.S_ITS ---
BILATERAL DIGITAL SCREENING MAMMOGRAM 3D/2D WITH CAD: 07/27/2019 CLINICAL: Routine screening. Personal history of left breast cancer. Family history of breast cancer. Comparison is made to exams dated: 07/25/2018 mammogram, 07/13/2017 mammogram, and 01/14/2017 mammogram - [facility]. There are scattered fibroglandular elements in both breasts. Current study was also evaluated with a Computer Aided Detection (CAD) system. There is a stable benign area of fat necrosis in the left breast. There also are stable benign calcifications in the left breast. Additionally, there are benign post operative findings in the left breast. No significant masses, calcifications, or other findings are seen in either breast. There has been no significant interval change. IMPRESSION: There is no mammographic evidence of malignancy. A 1 year screening mammogram is recommended. This exam was interpreted at Station ID: [id number]. NOTE: For mammograms, a report in lay terms will be sent to the patient. Approximately 15% of breast malignancies will not be visualized mammographically. In the management of a palpable breast mass, a negative mammogram must not discourage biopsy of a clinically suspicious lesion. Electronically Signed By: Johnny guerrero/[email or web address]:07/30/2019 08:29:48 copy to: Mara Carter letter sent: Normal Exam ACR BI-RADS Category 2: Benign Finding(s) [id number]
== END ==
PROVIDERS: Family Provider Family Medicine; PCP Family Medicine
DX: Z12.31 Encounter for screening mammogram for malignant neoplasm of breast (principal); Z85.3 Personal history of malignant neoplasm of breast; Z80.3 Family history of malignant neoplasm of breast
CPT/HCPCS: 77063; 77067

== ENCOUNTER → 2019-07-30 13:40 | Outpatient (CLI) | payer OTHER, SELFPAY ==
[2019-04-19 19:18] VITALS: BMI 28.0
== END ==
PROVIDERS: Family Provider Family Medicine; PCP Family Medicine; Referring Provider Family Medicine; Visit Provider Family Medicine
DX: M81.0 Age-related osteoporosis without current pathological fracture (principal); Z78.0 Asymptomatic menopausal state; E07.9 Disorder of thyroid, unspecified; Z85.3 Personal history of malignant neoplasm of breast; Z82.62 Family history of osteoporosis
CPT/HCPCS: 77080

== ENCOUNTER 2019-08-03 19:00 | Emergency (ER) | payer OTHER, SELFPAY ==
[2019-04-19 19:18] VITALS: BMI 28.0
[2019-08-03 19:18] VITALS: BP 196/117; PULSE 102; RESP 22; TEMP 36.3; O2SAT 99; BMI 26.5
--- NOTE | 2019-08-03 19:21 | DI.RAD.S_ITS ---
PROCEDURE: XR CHEST 1V INDICATIONS: CHEST PAIN TECHNIQUE: One view of the chest was acquired. COMPARISON: [facility], , CHEST 1 VIEW, 10/18/2012, 16:17. [facility], , XR SHOULDER LT MIN 2V, 04/19/2019, 16:22. [facility], , CHEST 1 VIEW, 11/04/2012, 13:50. FINDINGS: Surgical changes and devices: Left shoulder arthroplasty hardware is seen. Left axillary clips are seen. Lungs and pleura: Lungs are clear. No pleural effusions or pneumothorax. Mediastinum: The cardiac contours are within normal limits. The aorta demonstrates calcification and tortuosity. Bones and chest wall: No suspicious bony lesions. Age-appropriate bony degenerative changes are seen. Overlying soft tissues appear unremarkable. IMPRESSION: No acute plain film abnormality is seen. Dictated by: Alex Walton M.D. on 08/03/2019 at 19:36 Approved by: Alex Walton M.D. on 08/03/2019 at 19:37
[2019-08-03 19:32] LABS: Add Manual Diff / Slide Review NO; Basophils Absolute Auto 100 /uL (0-100); Basophils Percent Auto 0.8 % (0-2); Eosinophils Absolute Auto 100 /uL (0-450); Eosinophils Percent Auto 1.1 % (2-4); Hematocrit 48.3 % (36-46); Lymphocytes Absolute Auto 2400 /uL (1100-4500); Lymphocytes Percent Auto 36.6 % (25-40); Mean Corpuscular HGB Conc 35.1 % (30-36); Mean Corpuscular Hemoglobin 32.3 PG (26-34); Mean Corpuscular Volume 92.1 fL (80-100); Monocytes Absolute Auto 700 /uL (0-900); Monocytes Percent Auto 10.7 % (3-14); Neutrophils Absolute Auto 3300 /uL (1500-7000); Neutrophils Percent Auto 50.8 % (50-75); Platelet Count 307 X10^3/uL (150-400); Red Blood Cell Count 5.25 X10^6/uL (4.0-5.2); Red Cell Distribution Width 13.4 % (11.6-14.8); White Blood Cell Count 6.6 X10^3/uL (4.5-11.0)
[2019-08-03 19:36] VITALS: BP 184/86; PULSE 91; RESP 22; O2SAT 100
[2019-08-03 19:40] LABS: Alanine Aminotransferase 14 IU/L (<35); Albumin 4.9 g/dL (3.5-5.0); Albumin Globulin Ratio 1.3 (1.0-2.8); Alkaline Phosphatase 89 U/L (38-126); Aspartate Aminotransferase 25 IU/L (14-36); BUN Creatinine Ratio 26.3 (6-22); Bilirubin Total 0.4 mg/dL (0.2-1.3); Blood Urea Nitrogen 21 mg/dL (7-17); Calcium 10.1 mg/dL (8.4-10.2); Carbon Dioxide 27 mmol/L (22-32); Chloride 100 mmol/L (98-107); Creatine Kinase 41 U/L (30-135); Estimated Glomerular Filt Rate > 60.0 mL/min (>60); Globulin 3.8 g/dL (1.7-4.1); Glucose 122 mg/dL (80-110); HEMOLYSIS 22 (0-50); Lipase 129 U/L (23-300); Potassium 4.1 mmol/L (3.4-5.1); Sodium 139 mmol/L (137-145); Total Protein 8.7 g/dL (6.3-8.2)
[2019-08-03] MEDS: SODIUM CHLORIDE 0.9% 1,000 ML 150 ML IV (19:43)
[2019-08-03] MEDS: ASPIRIN 81 MG CHEW TAB 324 MG PO (19:43)
[2019-08-03 19:52] LABS: Troponin I < 0.012 ng/mL (0.01-0.034)
--- NOTE | 2019-08-03 20:10 | ED_ITS ---
HPI - Chest Pain General Chief Complaint: Chest Pain Stated Complaint: Thinks having heart attack Time Seen by Provider: 08/03/19 20:09 Source: patient Mode of arrival: Ambulatory Limitations: no limitations History of Present Illness HPI narrative: CC: chest pain HPI: The patient is a 74-year-old female who in the afternoon developed tinnitus in ringing in both of her ears. She then developed numbness in 2 fing ers that evolved into 3 fingers and then moved up her arm to her shoulder neck and low back. She denied any fall or injury. The patient has a past history of breast cancer 5 years ago requiring surgery, chemotherapy, and radiation therapy to her left breast. The patient questionable has a history of developing hypertension but has not yet been placed on an antihypertensive agent. The patient few weeks ago fell in injured her left shoulder requiring surgery. Recently she has had no new fall. She denies any headache strokes head injury neck injury or low back injury. Her numbness and tingling lasted approximately 30 minutes and is the 1st time she has ever had this. Her blood pressure was 193/83. The patient denies any significant cough shortness of breath palpitations. She has had no nausea vomiting diarrhea change in bowel habits. She has had no melena hematochezia. She denies any urinary symptoms. Related Data Home Medications Medication Instructions Recorded Confirmed acetaminophen [Tylenol Extra 1,000 mg PO Q4H PRN #0 01/24/13 04/19/19 Strength] ascorbic acid (vitamin C) 500 mg PO DAILY #0 01/24/13 04/19/19 levothyroxine [Synthroid] 88 mcg PO QAM #0 03/24/16 04/19/19 levocetirizine [Xyzal] 5 mg PO DAILY #0 01/31/17 04/19/19 triamcinolone acetonide 1 brian TOPICAL PRN PRN #0 07/18/17 04/19/19 calcium carbonate [Calcium 600] 600 mg PO DAILY 04/06/19 04/19/19 cholecalciferol (vitamin D3) 1,000 unit PO DAILY 04/06/19 04/19/19 [Vitamin D3] fluticasone propionate 2 spray INTRANASAL DAILY 04/06/19 04/19/19 ibuprofen 200 mg PO NEEDED PRN 04/06/19 04/19/19 Previous Rx's Medication Instructions Recorded ondansetron 4 mg PO TID-QID PRN #10 tab 04/06/19 aspirin 81 mg PO BID #0 tab 04/20/19 docusate sodium [DOK] 100 mg PO BID #30 cap 04/20/19 oxycodone 5 mg PO Q4-6H PRN #40 tab 04/20/19 naproxen [EC-Naproxen] 500 mg PO BID PRN #20 tab 08/03/19 Allergies Allergy/AdvReac Type Severity Reaction Status Date / Time cephalexin Allergy Unknown Verified 08/03/19 19:18 clindamycin Allergy Unknown Verified 08/03/19 19:18 Sulfa (Sulfonamide AdvReac Severe PASSED OUT Verified 08/03/19 19:18 Antibiotics) PRESERVATIVES Allergy Unknown Uncoded 08/03/19 19:18 SEASONAL Allergy Unknown Uncoded 08/03/19 19:18 Review of Systems Review of Systems ROS Unobtainable: All systems reviewed & are unremarkable except as noted in HPI and below Patient History Medical History Acid reflux (Acute) Breast cancer, left (Acute ~2012) Port-A-Cath in place (Acute ~06/2012) Right Achilles tendinitis (Acute) Thyroid disease (Acute) Surgical History Hx of left mastectomy (Acute) Hx of tubal ligation (Acute) S/P lumpectomy, left breast (Acute ~2012) Social History household members: spouse Smoking Status: Never smoker alcohol intake: current Smoking Status: Never smoker alcohol intake frequency: 0-2 drinks per day Substance Use Type: does not use Exam Narrative Exam Narrative: PHYSICAL EXAM: CONSTITUTIONAL: Awake, Alert, Oriented, Coherent, Cooperative in NAD. The patient is lying in bed and appears to be very skeptical. She does not understand that she can have intermittent hypertension or increases in her blood pressure and otherwise still remained asymptomatic. HEAD: AT/NC EENT: PERRL, FROM of eyes, no discharge, no nystagmus Oral mucosa is moist and pink, posterior pharynx is without erythema or exudate. NECK: Supple, no obvious JVD, Trachea is midline without stridor, no palpable LN or masses. SPINE: No gross deformity, there is mild tenderness to palpation over the cervical spine without any specific point tenderness. She is also tender to palpation over the left lower lateral cervical facet joints. Palpation of her left shoulder is diffusely tender. There is no bruising or signs of trauma. THORAX: No deformity, retractions. Her left chest wall is mildly tender to palpation without crepitus or subcutaneous air. LUNGS: Clear with symmetrical breath sounds and without respiratory distress HEART: Normal heart tones, regular rhythm and rate without murmur. ABDOMEN: Soft, non-tender, normal bowel sounds without guarding, rebound, ri gidity or palpable mass EXTREMITIES: No edema, cyanosis, deformity or tenderness. SKIN: No rash, bruising, petechiae or purpura. NEURO: Awake, alert, oriented, conversive, cranial nerves II-XII are symmetrical and normal, moves all 4 extremities and is ambulatory Initial Vital Signs Initial Vital Signs: Vital Signs Temperature 97.4 F L 08/03/19 19:18 Pulse Rate 102 H 08/03/19 19:18 Respiratory Rate 22 08/03/19 19:18 Blood Pressure 196/117 H 08/03/19 19:18 Pulse Oximetry 99 08/03/19 19:18 Course Course Course Narrative: 2031:CXR: No acute cardiopulmonary pathology per the radiol ogist. 2100 the patient's blood pressures in both arms were in the 150s and her blood pressure ranged from 150 to 180s on orthostatic vitals. The patient will be discharged home on Naprosyn and advised to keep a diary of her numbness and tingling in associated symptoms and how long they last. She will be given a prescription for Naprosyn for her pain and discomfort. She needs to follow-up with her primary care physician. She was advised that this is not cardiac in nature. At the current time she is asymptomatic. The patient and her seem to be anxious and questionably wanted medic ation for her hypertension. The patient was advised to follow-up with her primary care physician to be placed on an antihypertensive agent. She was informed by her primary care physician that she was reluctant to place her on an antihypertensive agent because most of the time her blood pressure is in the normal range and she may become dizzy pass out fall in injure herself if placed on any antihypertensive agent. The patient was advised to follow-up with her primary care physician to evaluate her medications and blood pressure. Orders Ordered: Discontinued Medications Aspirin (Aspirin Chew) 324 mg PO NOW ONE Stop: 08/03/19 19:22 Last Admin: 08/03/19 19:43 Dose: 324 mg Documented by: SENAIT Sodium Chloride (Normal Saline 0.9%) 1,000 mls @ 150 mls/hr IV CONT SUE Last Infusion: 08/03/19 21:34 Dose: 0 mls/hr Documented by: Admin: 08/03/19 19:43 Dose: 150 mls/hr Documented by: SENAIT Vital Signs Vital signs: Vital Signs - 8 hr 08/03/19 19:18 08/03/19 19:36 08/03/19 20:40 Temperature 97.4 F L Pulse Rate 102 H 91 H 72 Pulse Rate [Orthostatic Lying] Pulse Rate [Orthostatic Sitting] Pulse Rate [Orthostatic Standing] Respiratory Rate 22 22 Blood Pressure 196/117 H Blood Pressure [Left Arm] 184/86 H 159/79 H Blood Pressure [Orthostatic Lying] Blood Pressure [Orthostatic Sitting] Blood Pressure [Orthostatic Standing] Blood Pressure [Right Arm] Pulse Oximetry 99 100 08/03/19 20:50 08/03/19 21:01 Temperature Pulse Rate 76 Pulse Rate [Orthostatic Lying] 66 Pulse Rate [Orthostatic Sitting] 78 Pulse Rate [Orthostatic Standing] 82 Respiratory Rate Blood Pressure Blood Pressure [Left Arm] Blood Pressure [Orthostatic Lying] 154/72 H Blood Pressure [Orthostatic Sitting] 186/82 H Blood Pressure [Orthostatic Standing] 164/88 H Blood Pressure [Right Arm] 157/76 H Pulse Oximetry MDM - Chest Pain Lab Data Attestation: I reviewed the patient's lab results. Result diagrams: 08/03/19 19:20 08/03/19 19:20 Labs: Lab Results 08/03/19 08/03/19 Range/Units 19:20 19:20 WBC 6.6 (4.5-11.0) X10^3/uL RBC 5.25 H (4.0-5.2) X10^6/uL Hgb 17.0 H (12.0-16.0) g/dL Hct 48.3 H (36-46) % MCV 92.1 (80-100) fL MCH 32.3 (26-34) PG MCHC 35.1 (30-36) % RDW 13.4 (11.6-14.8) % Plt Count 307 (150-400) X10^3/uL Neut % (Auto) 50.8 (50-75) % Lymph % (Auto) 36.6 (25-40) % [place] % (Auto) 10.7 (3-14) % Eos % (Auto) 1.1 L (2-4) % Baso % (Auto) 0.8 (0-2) % Neut # (Auto) 3300 (6687-2902) /uL Lymph # (Auto) 2400 (4333-6404) /uL [place] # (Auto) 700 (0-900) /uL Eos # (Auto) 100 (0-450) /uL Baso # (Auto) 100 (0-100) /uL Sodium 139 (137-145) mmol/L Potassium 4.1 (3.4-5.1) mmol/L Chloride 100 (98-107) mmol/L Carbon Dioxide 27 (22-32) mmol/L BUN 21 H (7-17) mg/dL Creatinine 0.80 (0.52-1.04) mg/dL Estimated GFR > 60.0 (>60) mL/min BUN/Creatinine Ratio 26.3 H (6-22) Glucose 122 H (80-110) mg/dL Calcium 10.1 (8.4-10.2) mg/dL Total Bilirubin 0.4 (0.2-1.3) mg/dL AST 25 (14-36) IU/L ALT 14 (<35) IU/L Alkaline Phosphatase 89 (38-126) U/L Total Creatine Kinase 41 (30-135) U/L CK-MB (CK-2) TNP CK-MB (CK-2) Rel Index TNP Troponin I < 0.012 (0.01-0.034) ng/mL Total Protein 8.7 H (6.3-8.2) g/dL Albumin 4.9 (3.5-5.0) g/dL Globulin 3.8 (1.7-4.1) g/dL Albumin/Globulin Ratio 1.3 (1.0-2.8) Lipase 129 (23-300) U/L ECG Data Attestation: I personally reviewed and interpreted this ECG as follows: Interpretation: The patient's EKG obtained at 19:0 8:12 a.m. on August 03 revealed a normal sinus rhythm with a ventricular rate of 95. Intervals are normal. QTC is 378 milliseconds normal. [place] is normal. The patient has QS wave in lead III and V1. There are nonspecific ST segment changes with slight ST segment depressions in V3 V4 V5 V6. There are no acute elevated ST segments. T-waves are flat in III and V1. No acute diagnostic ST segment changes. Discharge Plan Departure Patient Disposition: Home Clinical Impression: Arm numbness left, Tenderness of neck, Anxiety Tinnitus Qualifiers: Laterality: bilateral Qualified Code(s): H93.13 - Tinnitus, bilateral Hypertension Qualifiers: Hypertension type: essential hypertension Qualified Code(s): I10 - Essential (primary) hypertension Discharge Date/Time: 08/03/19 21:41 Instructions: Essential Hypertension, DI for Angina, DI for Atypical Chest Pain, DI for Numbness/tingling Activity Restrictions/Additional Instructions: Keep a diary of your associated symptoms. This includes your shoulder pain, neck pain, numbness and tingling in your fingers hands arms neck and back. Record all of these symptoms when they woke her what relieves them how long the symptoms last. You also need to follow-up with your primary care physician to monitor your blood pressure. At this time we do not started blood pressure medicines in the emergency department but heavy follow-up with your primary care physician. If you develop high blood pressure greater than 190 or 200 associated with chest pain shortness of breath change in vision loss of vision headache you need to be re-evaluated at that time. Prescriptions: New naproxen [EC-Naproxen] 500 mg tablet,delayed release (DR/EC) 500 mg PO BID PRN (Reason: pain) Qty: 20 RF: 0 No Action acetaminophen [Tylenol Extra Strength] 500 MG tablet 1,000 mg PO Q4H PRN (Reason: PAIN) Qty: 0 RF: 0 ascorbic acid (vitamin C) 500 mg Tablet 500 mg PO DAILY Qty: 0 RF: 0 levothyroxine [Synthroid] 88 MCG tablet 88 mcg PO QAM Qty: 0 RF: 0 levocetirizine [Xyzal] 5 mg Tablet 5 mg PO DAILY Qty: 0 RF: 0 triamcinolone acetonide 0.1 % cream 1 brian Topical PRN PRN (Reason: unknown) Qty: 0 RF: 0 calcium carbonate [Calcium 600] 600 mg calcium (1,500 mg) Tablet 600 mg PO DAILY RF: 0 fluticasone propionate 50 mcg/actuation [place],Suspension 2 spray INTRANASAL DAILY RF: 0 cholecalciferol (vitamin D3) [Vitamin D3] 1,000 unit Capsule 1,000 unit PO DAILY RF: 0 ibuprofen 200 MG tablet 200 mg PO NEEDED PRN (Reason: PAIN) RF: 0 ondansetron 4 mg tablet,disintegrating 4 mg PO TID-QID PRN (Reason: nausea and vomiting) Qty: 10 RF: 0 docusate sodium [DOK] 100 mg Capsule 100 mg PO BID Qty: 30 RF: 0 oxycodone 5 mg Tablet 5 mg PO Q4-6H PRN (Reason: Pain, Moderate (4-6)) Qty: 40 RF: 0 aspirin 81 mg Tablet,Chewable 81 mg PO BID Qty: 0 RF: 0 Referrals: Mara Carter MD [Primary Care Provider] -
[2019-08-03 20:40] VITALS: BP 159/79; PULSE 72
[2019-08-03 20:50] VITALS: BP 157/76; PULSE 76
[2019-08-03 21:01] VITALS: BP 154/72; BP 164/88; BP 186/82; PULSE 66; PULSE 78; PULSE 82
[2019-08-03 21:40] VITALS: BP 165/74; PULSE 74; RESP 16; O2SAT 97
== END 2019-08-03 21:41 | disposition home or self-care (01) ==
PROVIDERS: Emergency Medicine; Emergency Provider Emergency Medicine; Family Provider Family Medicine; PCP Family Medicine
DX: R20.0 Anesthesia of skin (principal); M54.2 Cervicalgia; F41.9 Anxiety disorder, unspecified; H93.13 Tinnitus, bilateral; I10 Essential (primary) hypertension; C50.919 Malignant neoplasm of unspecified site of unspecified female breast; R07.9 Chest pain, unspecified
CPT/HCPCS: 36415; 71045; 80053; 82550; 83690; 84484; 85025; 93005; 96360; 96361; 99284; 99285

== ENCOUNTER 2019-08-27 19:49 | Emergency (ER) | payer OTHER, SELFPAY ==
[2019-04-19 19:18] VITALS: BMI 28.0
[2019-08-27 20:02] VITALS: BP 197/98; PULSE 73; RESP 18; O2SAT 98; BMI 26.5
--- NOTE | 2019-08-27 20:14 | ED_ITS ---
HPI - Neuro Symptoms/Deficit General Chief Complaint: Neuro Symptoms/Deficit Stated Complaint: Back of head pain and ears ringing, high BP Time Seen by Provider: 08/27/19 20:11 Source: patient and family Mode of arrival: Ambulatory Limitations: no limitations History of Present Illness HPI Narrative: The patient experienced a situation 2 days ago where she had difficulty speaking for about 20 minutes. She had no associated trouble walking, or focal weakness or numbness. Prior to the expressive aphasia she had a period of difficulty with her vision. She did not have a visual field cut, her vision was altered. She was not suffering headache at that time. She has not been ill, no fever or chills. No URI symptoms. No chest pain or dyspnea. She also complains of tinnitus bilaterally. She has been previously seen here for tinnitus, this is apparently chronic problem for her. She also has intermittent hypertension. She describes developing tinnitus, then developing headache and hypertension. She has been seen by her doctor, apparently her blood pressures often times normal. She is on no medications for hypertension. She is hypertensive upon arrival here in the ER [facility]. She has no associated visual changes. She has no associated chest pain or dyspnea. She has no history arrhythmia, cardiac disease, or stroke. A head CT March 2019 was normal. On Anticoagulants: No Related Data Home Medications Medication Instructions Recorded Confirmed acetaminophen [Tylenol Extra 1,000 mg PO Q4H PRN #0 01/24/13 04/19/19 Strength] ascorbic acid (vitamin C) 500 mg PO DAILY #0 01/24/13 04/19/19 levothyroxine [Synthroid] 88 mcg PO QAM #0 03/24/16 04/19/19 levocetirizine [Xyzal] 5 mg PO DAILY #0 01/31/17 04/19/19 triamcinolone acetonide 1 brian TOPICAL PRN PRN #0 07/18/17 04/19/19 calcium carbonate [Calcium 600] 600 mg PO DAILY 04/06/19 04/19/19 cholecalciferol (vitamin D3) 1,000 unit PO DAILY 04/06/19 04/19/19 [Vitamin D3] fluticasone propionate 2 spray INTRANASAL DAILY 04/06/19 04/19/19 ibuprofen 200 mg PO NEEDED PRN 04/06/19 04/19/19 Previous Rx's Medication Instructions Recorded ondansetron 4 mg PO TID-QID PRN #10 tab 04/06/19 aspirin 81 mg PO BID #0 tab 04/20/19 docusate sodium [DOK] 100 mg PO BID #30 cap 04/20/19 oxycodone 5 mg PO Q4-6H PRN #40 tab 04/20/19 naproxen [EC-Naproxen] 500 mg PO BID PRN #20 tab 08/03/19 Allergies Allergy/AdvReac Type Severity Reaction Status Date / Time cephalexin Allergy Unknown Verified 08/27/19 20:07 clindamycin Allergy Unknown Verified 08/27/19 20:07 Sulfa (Sulfonamide AdvReac Severe PASSED OUT Verified 08/27/19 20:07 Antibiotics) PRESERVATIVES Allergy Unknown Uncoded 08/27/19 20:07 SEASONAL Allergy Unknown Uncoded 08/27/19 20:07 Review of Systems Review of Systems ROS Unobtainable: All systems reviewed & are unremarkable except as noted in HPI and below Constitutional Constitutional: Denies chills, Denies fever(s), Denies lethargy and Denies weakness Eyes Eyes: Reports as per HPI Comments: Recent altered vision, no acute now. No visual field cuts. ENT Ears, Nose, Mouth, and Throat: Denies change in voice, Denies vertigo, Denies dizziness, Denies neck pain, Reports tinnitus and Denies sore throat Cardiovascular Cardiovascular: Denies chest pain, Denies irregular heart rhythm, Denies lightheadedness, Denies palpitations, Denies dyspnea and Denies orthopnea Respiratory Respiratory: Denies cough, Denies dyspnea and Denies wheezing Gastrointestinal Gastrointestinal: Denies abdominal pain, Denies change in bowel habits, Denies nausea and Denies vomiting Musculoskeletal Musculoskeletal: Denies back pain and Denies neck pain Integumentary/Breasts Skin/Breast: Denies pruritus, Denies erythema and Denies rash Neurologic Neurologic: Denies behavioral changes, Denies confusion, Denies vertigo, Denies dizziness and Denies weakness Psychiatric Psychiatric: Denies anxiety, Denies behavioral changes and Denies confusion Endocrine Endocrine: Denies palpitations Allergic/Immunologic Allergic/Immunologic: Denies wheezing Patient History Medical History (Updated 08/27/19 @ 21:28 by Franc Hamilton MD) Acid reflux (Acute) Breast cancer, left (Acute ~2012) Port-A-Cath in place (Acute ~06/2012) Right Achilles tendinitis (Acute) Thyroid disease (Acute) Tinnitus (Acute) Surgical History Hx of left mastectomy (Acute) Hx of tubal ligation (Acute) S/P lumpectomy, left breast (Acute ~2012) Social History household members: spouse Smoking Status: Never smoker alcohol intake: current Smoking Status: Never smoker alcohol intake frequency: 0-2 drinks per day Substance Use Type: does not use Exam Initial Vital Signs Initial Vital Signs: Vital Signs Pulse Rate 73 08/27/19 20:02 Respiratory Rate 18 08/27/19 20:02 Blood Pressure 197/98 H 08/27/19 20:02 Pulse Oximetry 98 08/27/19 20:02 Const General: cooperative and well developed Nutritional Appearance: well nourished HENNM Head: normocephalic and atraumatic Ears: external ears normal and TM's normal bilaterally Nose: external nose normal Face and sinus: sinuses nontender and face symmetric Mouth: oral mucosae normal and moist mucous membranes Throat: tonsils normal and uvula midline Eyes General: appearance normal, both eyes and all related structures Eyelids: eyelids normal Conjunctivae: conjunctivae normal Sclera: sclerae normal Pupils: PERRL EOM: EOM intact bilaterally Other: No visual field cuts. Neck Neck: No JVD Carotids: no bruits Chest Chest: normal inspection of the chest Resp Effort & Inspection: normal respiratory effort, able to speak in complete sentences, no respiratory distress and no use of accessory muscles Auscultation: clear to auscultation bilaterally, no rales, no rhonchi and no wheezes Cardio Rate: regular rate Rhythm: regular rhythm Heart Sounds: no click, no gallops, no murmurs and no rubs Pulses: normal peripheral pulses GI Inspection: normal to inspection Palpation: soft and No tender Back/Spine/Pelvis Back: No CVA tenderness Cervical Spine: cervical ROM normal Thoracic/Lumbar Spine: thoracic and lumbar spine normal to inspection Skin General: no rashes or lesions noted and No petechiae Neuro General: alert, oriented x3, gait normal and no focal motor deficits Cranial Nerves: CN's II-XI intact bilaterally Speech: speech normal Gait: normal gait Motor: muscle tone normal throughout Sensory Exam: no sensory deficits noted Extrem General: full ROM, no pedal edema and no calf tenderness Psych Appearance: well kempt Mental Status: mental status grossly normal Attitude: cooperative Thought Content: normal Judgment: judgment good Scores NIH Stroke Scale Level of Conciousness: Alert, keenly responsive Ask month/age: Answers both questions correctly. Open/close eyes, close hand: Performs both tasks correctly Best gaze horizontal: Normal Visual egan: No visual loss Facial palsy: Normal symetrical movement Left arm drift: No drift for full 10 sec Right arm drift: No drift for full 10 sec Left leg drift: No drift for full 10 sec Right leg drift: No drift for full 10 sec Limb ataxia: Absent Sensory on face/arms/legs: Normal, no sensory loss Best language: No aphasia, normal Dysarthria: Normal Extinction or inattention: No abnormality Total NIH Stroke scale score: 0 Course Course Course Narrative: The patient is asymptomatic when evidence of stroke when she arrived here. Her head CT is normal. Her blood pressure is labile, 150-180 systolic. I referred her back to [facility], recommended brain MRI. Also recommended a lot of attention to her blood pressure. She is to make an appoint with her doctor discuss these 2 issues. Orders Ordered: ED Orders 08/27/19 20:29 CT Stroke Stat EKG-12 Lead Stat 08/27/19 21:00 Basic Metabolic Panel Stat Complete Blood Count AUTO DIFF Stat Partial Thromboplastin Time Stat Prothrombin Time INR Stat Troponin & CK Cardiac Panel Stat Vital Signs Vital signs: Vital Signs - 8 hr 08/27/19 20:02 08/27/19 20:35 08/27/19 21:10 Pulse Rate 73 71 69 Respiratory Rate 18 20 18 Blood Pressure 197/98 H Blood Pressure [Left Arm] 173/94 H 161/74 H Pulse Oximetry 98 98 99 MDM - Neuro Symptoms/Deficit Lab Data Result diagrams: 08/27/19 21:00 08/27/19 21:00 Labs: Lab Results 08/27/19 08/27/19 08/27/19 Range/Units 21:00 21:00 21:00 WBC 7.8 (4.5-11.0) X10^3/uL RBC 4.76 (4.0-5.2) X10^6/uL Hgb 15.1 (12.0-16.0) g/dL Hct 44.1 (36-46) % MCV 92.6 (80-100) fL MCH 31.8 (26-34) PG MCHC 34.3 (30-36) % RDW 13.8 (11.6-14.8) % Plt Count 265 (150-400) X10^3/uL Neut % (Auto) 63.0 (50-75) % Lymph % (Auto) 23.9 L (25-40) % [place] % (Auto) 11.1 (3-14) % Eos % (Auto) 1.2 L (2-4) % Baso % (Auto) 0.8 (0-2) % Neut # (Auto) 4900 (4087-1715) /uL Lymph # (Auto) 1900 (3179-8222) /uL [place] # (Auto) 900 (0-900) /uL Eos # (Auto) 100 (0-450) /uL Baso # (Auto) 100 (0-100) /uL PT 11.3 (10.1-12.7) SECONDS INR 1.0 (0.9-1.3) APTT 29 (26.4-36.2) SECONDS Sodium 140 (137-145) mmol/L Potassium 4.6 (3.4-5.1) mmol/L Chloride 102 (98-107) mmol/L Carbon Dioxide 30 (22-32) mmol/L BUN 17 (7-17) mg/dL Creatinine 1.10 H (0.52-1.04) mg/dL Estimated GFR 48.8 L (>60) mL/min BUN/Creatinine Ratio 15.5 (6-22) Glucose 111 H (80-110) mg/dL Calcium 9.7 (8.4-10.2) mg/dL Total Creatine Kinase 37 (30-135) U/L CK-MB (CK-2) TNP CK-MB (CK-2) Rel Index TNP Troponin I < 0.012 (0.01-0.034) ng/mL Urine Dip Bedside Urine Glucose Negative Bedside Urine Bilirubin - Negative Bedside Urine Ketone - Negative Urine Specific [place] 1.010 Bedside Urine Occult Blood +/- Bedside Urine pH 7.0 Bedside Urine Protein - Negative Bedside Urine Urobilinogen - Negative Bedside Urine Nitrite - Negative Bedside Urine Leukocytes +/- [address] scan - head: Radiologist's Impression: 241 Franc Hamilton MD Find Patient Imaging - Callie Berkowitz F 74 F 1945 ACTIVITY DATE EXAM STATUS AUTHOR 08/27/19 20:[address] [address] [address] Scan Report Signed Patient: Callie Berkowitz FMR#: [id number] : 1945cct:[id number] Age/Sex: 74 / FDate of Service: 08/27/19 Loc: ED Accession Number: [id number] Procedure: CT Stroke Ordering Provider: Franc Hamilton MD PROCEDURE: CT STROKE INDICATIONS: Recent expressive aphasia. TECHNIQUE: Noncontrast 4.5 mm thick angled axial sections acquired from the foramen magnum to the vertex, with coronal reformats. For radiation dose reduction, the following was used: automated exposure control, adjustment of mA and/or kV according to patient size. COMPARISON: None. FINDINGS: Image quality: Excellent. CSF spaces: Basal cisterns are patent. No extra-axial fluid collections. The ventricles are symmetric in size and shape. Brain: No intracranial bleeds or masses. Small old infarct in left basal ganglia is seen. There is cerebral volume loss for age, with resultant ventricular and sulcal prominence. There are periventricular and deep white matter chronic small vessel ischemic changes. There is intracranial internal carotid artery atherosclerosis. Skull and face: Calvarium and visualized facial bones appear intact, without suspicious lesions. Sinuses: Visualized sinuses and mastoids are clear. IMPRESSION: No CT evidence of acute intracranial pathology. Mild atrophy and mild periventricular white matter chronic small vessel ischemic changes. Small lacunar infarct in left basal ganglia. Findings were reported to Dr. Hamilton at 8:55 PM on 08/27/19. This study fulfills neurological imaging criteria for inclusion or exclusion of acute stroke therapies based on available published neurological guidelines. Dictated by: Devon Cheek M.D. on 08/27/2019 at 20:53 Approved by: Devon Cheek M.D. on 08/27/2019 at 20:55 ECG Data Attestation: I personally reviewed and interpreted this ECG as follows: (Normal sinus rhythm rate 77 beats per minute. Normal intervals. No ectopy. No acute ST T wave changes. Normal study.) Discharge Plan Departure Patient Disposition: Home Clinical Impression: Aphasia Tinnitus Qualifiers: Laterality: unspecified laterality Qualified Code(s): H93.19 - Tinnitus, unspecified ear Hypertension Qualifiers: Hypertension type: unspecified Qualified Code(s): I10 - Essential (primary) hypertension Discharge Date/Time: 08/27/19 21:44 Instructions: Aphasia, Essential Hypertension, DI for Tinnitus Activity Restrictions/Additional Instructions: Continue with her current medications. Follow-up with her doctor regarding the difficulty with her speech 2 days ago. I would recommend an MRI of the brain. You should talk to your doctor about your blood pressure once again. I would recommend follow through with the recommendations for ringing of the ears, but discuss this with her doctor also. Return the ER as needed. Prescriptions: No Action acetaminophen [Tylenol Extra Strength] 500 MG tablet 1,000 mg PO Q4H PRN (Reason: PAIN) Qty: 0 RF: 0 ascorbic acid (vitamin C) 500 mg Tablet 500 mg PO DAILY Qty: 0 RF: 0 levothyroxine [Synthroid] 88 MCG tablet 88 mcg PO QAM Qty: 0 RF: 0 levocetirizine [Xyzal] 5 mg Tablet 5 mg PO DAILY Qty: 0 RF: 0 triamcinolone acetonide 0.1 % cream 1 brian Topical PRN PRN (Reason: unknown) Qty: 0 RF: 0 calcium carbonate [Calcium 600] 600 mg calcium (1,500 mg) Tablet 600 mg PO DAILY RF: 0 fluticasone propionate 50 mcg/actuation [place],Suspension 2 spray INTRANASAL DAILY RF: 0 cholecalciferol (vitamin D3) [Vitamin D3] 1,000 unit Capsule 1,000 unit PO DAILY RF: 0 ibuprofen 200 MG tablet 200 mg PO NEEDED PRN (Reason: PAIN) RF: 0 ondansetron 4 mg tablet,disintegrating 4 mg PO TID-QID PRN (Reason: nausea and vomiting) Qty: 10 RF: 0 docusate sodium [DOK] 100 mg Capsule 100 mg PO BID Qty: 30 RF: 0 oxycodone 5 mg Tablet 5 mg PO Q4-6H PRN (Reason: Pain, Moderate (4-6)) Qty: 40 RF: 0 aspirin 81 mg Tablet,Chewable 81 mg PO BID Qty: 0 RF: 0 naproxen [EC-Naproxen] 500 mg tablet,delayed release (DR/EC) 500 mg PO BID PRN (Reason: pain) Qty: 20 RF: 0 Referrals: Mara Carter MD [Primary Care Provider] -
--- NOTE | 2019-08-27 20:29 | DI.CT.S_ITS ---
PROCEDURE: CT STROKE INDICATIONS: Recent expressive aphasia. TECHNIQUE: Noncontrast 4.5 mm thick angled axial sections acquired from the foramen magnum to the vertex, with coronal reformats. For radiation dose reduction, the following was used: automated exposure control, adjustment of mA and/or kV according to patient size. COMPARISON: None. FINDINGS: Image quality: Excellent. CSF spaces: Basal cisterns are patent. No extra-axial fluid collections. The ventricles are symmetric in size and shape. Brain: No intracranial bleeds or masses. Small old infarct in left basal ganglia is seen. There is cerebral volume loss for age, with resultant ventricular and sulcal prominence. There are periventricular and deep white matter chronic small vessel ischemic changes. There is intracranial internal carotid artery atherosclerosis. Skull and face: Calvarium and visualized facial bones appear intact, without suspicious lesions. Sinuses: Visualized sinuses and mastoids are clear. IMPRESSION: No CT evidence of acute intracranial pathology. Mild atrophy and mild periventricular white matter chronic small vessel ischemic changes. Small lacunar infarct in left basal ganglia. Findings were reported to Dr. Hamilton at 8:55 PM on 08/27/19. This study fulfills neurological imaging criteria for inclusion or exclusion of acute stroke therapies based on available published neurological guidelines. Dictated by: Devon Cheek M.D. on 08/27/2019 at 20:53 Approved by: Devon Cheek M.D. on 08/27/2019 at 20:55
[2019-08-27 20:35] VITALS: BP 173/94; PULSE 71; RESP 20; O2SAT 98
[2019-08-27 21:10] VITALS: BP 161/74; PULSE 69; RESP 18; O2SAT 99
[2019-08-27 21:14] LABS: Add Manual Diff / Slide Review NO; Basophils Absolute Auto 100 /uL (0-100); Basophils Percent Auto 0.8 % (0-2); Eosinophils Absolute Auto 100 /uL (0-450); Eosinophils Percent Auto 1.2 % (2-4); Hematocrit 44.1 % (36-46); Hemoglobin 15.1 g/dL (12.0-16.0); Lymphocytes Absolute Auto 1900 /uL (1100-4500); Lymphocytes Percent Auto 23.9 % (25-40); Mean Corpuscular HGB Conc 34.3 % (30-36); Mean Corpuscular Hemoglobin 31.8 PG (26-34); Mean Corpuscular Volume 92.6 fL (80-100); Monocytes Absolute Auto 900 /uL (0-900); Monocytes Percent Auto 11.1 % (3-14); Neutrophils Absolute Auto 4900 /uL (1500-7000); Platelet Count 265 X10^3/uL (150-400); Prothrombin Time 11.3 SECONDS (10.1-12.7); Red Blood Cell Count 4.76 X10^6/uL (4.0-5.2); Red Cell Distribution Width 13.8 % (11.6-14.8); White Blood Cell Count 7.8 X10^3/uL (4.5-11.0)
[2019-08-27 21:17] LABS: PTT Partial Thromboplastin Tim 29 SECONDS (26.4-36.2)
[2019-08-27 21:18] LABS: BUN Creatinine Ratio 15.5 (6-22); Blood Urea Nitrogen 17 mg/dL (7-17); Calcium 9.7 mg/dL (8.4-10.2); Carbon Dioxide 30 mmol/L (22-32); Chloride 102 mmol/L (98-107); Creatine Kinase 37 U/L (30-135); Estimated Glomerular Filt Rate 48.8 mL/min (>60); Glucose 111 mg/dL (80-110); HEMOLYSIS < 15 (0-50); Potassium 4.6 mmol/L (3.4-5.1); Sodium 140 mmol/L (137-145)
[2019-08-27 21:30] LABS: Troponin I < 0.012 ng/mL (0.01-0.034)
== END 2019-08-27 21:44 | disposition home or self-care (01) ==
PROVIDERS: Emergency Provider Emergency Medicine; Family Provider Family Medicine; PCP Family Medicine
DX: R47.01 Aphasia (principal); H93.19 Tinnitus, unspecified ear; I10 Essential (primary) hypertension; R07.9 Chest pain, unspecified
CPT/HCPCS: 36415; 70450; 80048; 81003; 82550; 84484; 85025; 85610; 85730; 99283; 99284

== ENCOUNTER → 2019-09-04 13:37 | Outpatient (CLI) | payer OTHER, SELFPAY ==
[2019-04-19 19:18] VITALS: BMI 28.0
--- NOTE | 2019-09-04 | DI.MRI.S_ITS ---
PROCEDURE: MR HEAD/BRAIN WO/W CON INDICATIONS: Dizziness and giddiness TECHNIQUE: Noncontrast axial T1 spin echo, axial T2 fast spin echo, sagittal and axial FLAIR, coronal T2 fast spin echo, axial gradient echo, axial diffusion and ADC through the brain. After the administration of contrast, axial and coronal T1 spin echo with fat saturation through the brain. COMPARISON: [facility], CT, CT HEAD/BRAIN WO CON, 04/06/2019, 15:20. FINDINGS: Image quality: Excellent. CSF spaces: Basal cisterns are patent. No extra-axial fluid collections. Ventricles are normal in size and shape. Brain: No midline shift. No intracranial bleeds or masses. No abnormal intracranial enhancement. There is cerebral volume loss for age. There is periventricular white matter chronic small vessel ischemic change. The brainstem appears normal. Diffusion-weighted images demonstrate no acute ischemic insults. No chronic ischemic insults. Normal intravascular flow voids are present. Skull and face: Calvarial marrow is normal in signal. Orbits appear normal. Sinuses: Sinuses and mastoids appear clear. IMPRESSION: 1. Volume loss and small vessel ischemic disease. 2. No acute process. No recent infarct. 3. No explanation for dizziness nor giddiness. Dictated by: Sara Mullins M.D. on 09/04/2019 at 14:56 Approved by: Sara Mullins M.D. on 09/04/2019 at 14:58
== END ==
PROVIDERS: Family Provider Family Medicine; PCP Family Medicine; Referring Provider Family Medicine; Visit Provider Family Medicine
DX: R42 Dizziness and giddiness (principal); G45.9 Transient cerebral ischemic attack, unspecified; M54.2 Cervicalgia
CPT/HCPCS: 70553; A9579

== ENCOUNTER → 2019-10-19 13:52 | Outpatient (CLI) | payer OTHER, SELFPAY ==
[2019-04-19 19:18] VITALS: BMI 28.0
--- NOTE | 2019-10-19 | DI.CT.S_ITS ---
PROCEDURE: CT ANGIO NECK INDICATIONS: HYPERTENSION, TIA, HX OF DIZZY SPELLS TECHNIQUE: After the administration of intravenous contrast, 1.5 mm axial sections acquired from the aortic arch to the [place]. Maximum intensity projection (MIP) reformats were then performed. COMPARISON: None. FINDINGS: Image quality: Excellent. Carotid system: The great vessels demonstrate a conventional anatomy as they arise from the aortic arch. The origins of the common carotid arteries appear patent. The common carotid arteries demonstrate normal calibers and courses. There is mild plaque present involving the proximal right internal carotid artery without significant stenosis. The internal carotid arteries demonstrate normal caliber and course. Posterior circulation: The origins of the vertebral arteries appear patent. The more superior portions of the vertebral arteries demonstrate normal course and caliber. They join to form a normal appearing basilar artery. Soft tissues: Visualized neck soft tissues demonstrate no suspicious abnormalities. Thyroid gland is unremarkable. Bones: No suspicious bony lesions. Visualized cervical spine appears normally aligned. IMPRESSION: 1. Mildly ASCVD. Mild plaque without significant stenosis involving the proximal right internal carotid artery. 2. No flow limiting stenosis. No dissection. 3. Otherwise unremarkable contrast-enhanced images of the neck. Any quantitative stenosis measurements were performed using the NASCET criteria. Dictated by: Slim James M.D. on 10/19/2019 at 15:42 Approved by: Slim James M.D. on 10/19/2019 at 15:46
--- NOTE | 2019-10-19 | DI.ECHO.S_ITS ---
[facility]---------+ [facility] +---------+ : : [address] : : : : [id number] : : : : Phone: [phone]+ Echocardiogram Report + + :Name: NHUNG BASSETT Study Date: 10/19/2019 Height: 63 in : :[facility] Weight: 150 lb : : Gender: Female BSA: 1.7 m2 : :: 1945 Age: 74 yrs BP: 122/90 mmHg: :Reason For Study: Hypertension/ TIA : :Ordering Physician: : :Mara Carter Performed By: Rhiannon Page : + + Interpretation Summary The left ventricle is normal in size and wall thickness. The left ventricular ejection fraction is normal. There are no obvious focal wall motion abnormalities noted but poor endocardial definition reduces the sensitivity for the detection of such. The right ventricle is normal in size and function. The right ventricular systolic pressure is estimated to be at least 25 mmHg based on an estimated right atrial pressure of 3 mm Hg. There is no Doppler evidence for an interatrial shunt. No hemodynamically significant valvular abnormalities. Procedure: A two-dimensional transthoracic echocardiogram with color flow and Doppler was performed. The study quality was technically adequate. There is no prior echocardiogram noted for this patient. The patient was in normal sinus rhythm during the exam. Left Ventricle: There is mild proximal septal thickening noted. The left ventricle is normal in size and wall thickness. The ejection fraction is estimated to be 60-65%. The left ventricular ejection fraction is normal. There are no obvious focal wall motion abnormalities noted but poor endocardial definition reduces the sensitivity for the detection of such. Diastolic parameters suggest a relaxation abnormality of the left ventricle, consistent with probable normal filling pressures. Right Ventricle: The right ventricle is normal in size and function. Atria: The left atrium grossly appears normal in size. Right atrial size is normal. There is no Doppler evidence for an interatrial shunt. Mitral Valve: The mitral valve is normal in structure and function. There is mild mitral regurgitation. Aortic Valve: The aortic valve is trileaflet. The aortic valve opens well. There is trace aortic regurgitation. Tricuspid Valve: The tricuspid valve is normal in structure and function. There is trace tricuspid regurgitation. The right ventricular systolic pressure is estimated to be at least 25 mmHg based on an estimated right atrial pressure of 3 mm Hg. Pulmonic Valve: The pulmonic valve is not well visualized. Great Vessels: The aortic root is normal size. The ascending aorta is mildly enlarged. The pulmonary artery is not well visualized, but is probably normal size. The IVC is of normal diameter and collapses greater than 50% with a sniff. This suggests a low right atrial pressure of 3 mm Hg. Pericardium/ Pleura There is no pericardial effusion. There is no pleural effusion. MMode/2D Measurements & Calculations LVIDd: 4.7 cm LVOT diam: 1.9 cm LVIDs: 3.0 cm Ao root diam: 3.6 cm FS: 36.2 % asc Aorta Diam: 3.7 cm IVSd: 0.55 cm LVPWd: 0.60 cm LV erwin. diameter/BSA (cm/m^2): 2.7 LV sys. diameter/BSA (cm/m^2): 1.7 LA A2 area: 27.6 cm2 RA long axis: 4.8 cm LA A4 area: 21.2 cm2 RA area: 14.9 cm2 LA length (vol): 5.6 cm RA vol: 39.3 ml LA vol: 88.8 ml RA : 23.0 ml/m2 LA vol index: 51.9 ml/m2 IVC diam: 1.5 cm RVD1 (basal): 3.9 cm RVD2 (mid): 4.3 cm TAPSE: 2.0 cm Doppler Measurements & Calculations Ao V2 max: 131.3 cm/sec LVOT Max Meño: 101.0 cm/sec Ao V2 mean: 81.2 cm/sec LV V1 max P.1 mmHg Ao max P.9 mmHg LV V1 VTI: 20.9 cm Ao mean P.1 mmHg RONALDO(I,D): 2.4 cm2 Ao V2 VTI: 25.7 cm RONALDO(V,D): 2.2 cm2 sev ratio: 0.81 RONALDO indexed to BSA (cm^2/m^2): 1.4 MV E max meño: 58.0 cm/sec TR max meño: 235.3 cm/sec MV A max meño: 99.2 cm/sec TR max P.1 mmHg MV E/A: 0.58 PA V2 max: 79.2 cm/sec Med Peak E' Meño: 7.9 cm/sec PA V2 mean: 51.5 cm/sec E/E' med: 7.4 PA mean P.2 mmHg Lat Peak E' Meño: 9.3 cm/sec E/E' lat: 6.3 E/e' average: 6.8 MV dec time: 0.29 sec SV(LVOT): 60.9 ml Electronically signed by: Sebastian Santos M.D. on Reading Physician:10/19/2019 09:18 PM
== END ==
PROVIDERS: Family Provider Family Medicine; PCP Family Medicine; Referring Provider Family Medicine; Visit Provider Family Medicine
DX: G45.9 Transient cerebral ischemic attack, unspecified (principal); I10 Essential (primary) hypertension; I25.10 Atherosclerotic heart disease of native coronary artery without angina pectoris; R42 Dizziness and giddiness; I77.89 Other specified disorders of arteries and arterioles
CPT/HCPCS: 70498; 93306; Q9967

== ENCOUNTER → 2020-07-28 11:04 | Outpatient (CLI) | payer OTHER, SELFPAY ==
[2019-04-19 19:18] VITALS: BMI 28.0
--- NOTE | 2020-07-28 11:05 | DI.MG.S_ITS ---
BILATERAL DIGITAL SCREENING MAMMOGRAM 3D/2D WITH CAD: 07/28/2020 CLINICAL: Routine screening. Breast cancer. Comparison is made to exams dated: 07/27/2019 mammogram, 07/25/2018 mammogram, and 07/13/2017 mammogram - [facility]. There are scattered fibroglandular elements in both breasts. Current study was also evaluated with a Computer Aided Detection (CAD) system. There is a stable benign area of fat necrosis in the left breast. There also are stable benign calcifications in the left breast. Additionally, there are benign post operative findings in the left breast. No significant masses, calcifications, or other findings are seen in either breast. There has been no significant interval change. IMPRESSION: BENIGN There is no mammographic evidence of malignancy. A 1 year screening mammogram is recommended. This exam was interpreted at Station ID: [id number]. NOTE: For mammograms, a report in lay terms will be sent to the patient. Approximately 15% of breast malignancies will not be visualized mammographically. In the management of a palpable breast mass, a negative mammogram must not discourage biopsy of a clinically suspicious lesion. Electronically Signed By: Stefano gates/jocelyne:07/28/2020 14:31:50 copy to: Mara Carter letter sent: Normal Exam ACR BI-RADS Category 2: Benign Finding(s) [id number]
== END ==
PROVIDERS: Family Provider Family Medicine; PCP Family Medicine; Referring Provider Internal Medicine; Visit Provider Internal Medicine
DX: Z12.31 Encounter for screening mammogram for malignant neoplasm of breast (principal); Z85.3 Personal history of malignant neoplasm of breast
CPT/HCPCS: 77063; 77067

== ENCOUNTER → 2020-12-23 11:12 | Outpatient (CLI) | payer OTHER, SELFPAY ==
[2019-04-19 19:18] VITALS: BMI 28.0
== END ==
PROVIDERS: Family Provider Family Medicine; PCP Family Medicine; Referring Provider Family Medicine; Visit Provider Family Medicine
DX: M81.0 Age-related osteoporosis without current pathological fracture; Z78.0 Asymptomatic menopausal state; E07.9 Disorder of thyroid, unspecified; Z85.3 Personal history of malignant neoplasm of breast; Z82.62 Family history of osteoporosis
CPT/HCPCS: 77080

== ENCOUNTER → 2021-05-11 08:59 | Outpatient (CLI) | payer OTHER, SELFPAY ==
[2019-04-19 19:18] VITALS: BMI 28.0
[2021-05-11 12:45] LABS: COVID19 -Nasal RAPID Negative (Negative)
== END ==
PROVIDERS: Family Provider Family Medicine; PCP Family Medicine; Visit Provider Physician Assistant
DX: Z01.812 Encounter for preprocedural laboratory examination (principal); Z20.822 Contact with and (suspected) exposure to COVID-19
CPT/HCPCS: 87635

== ENCOUNTER 2021-05-13 12:13 | Day surgery (SDC) | payer OTHER, SELFPAY ==
[2019-04-19 19:18] VITALS: BMI 28.0
[2021-05-13] VITALS (7 sets, daily range): BP systolic 103–138; BP diastolic 51–76; PULSE 64–95; RESP 12–20; TEMP 36–36.8; O2SAT 97–100; BMI 27.1
--- NOTE | 2021-05-13 | PATH_ITS ---
[facility] Accession Number: [id number] . 01 Material submitted: . PART A: esophagus - ESOPHAGEAL BIOPSIES PART B: colon - LEFT DESCENDING COLON POLYP, 50 CM . 01 Clinical history: . A: R/O ARIZA'S . 02 Diagnosis: A. Esophagus, Biopsies: Squamocolumnar junctional mucosa with chronic active inflammation. Negative for intestinal metaplasia. Negative for dysplasia and malignancy. . B. Left Descending Colon, Polyp 50 cm, Biopsy: Benign lymphoid aggregate. Additional levels were examined. Negative for dysplasia and malignancy. [facility] 05/19/2021 1451 Local . 02 Electronically signed: . Yamileth Maddox MD, Pathologist NPI- [id number] . 01 Gross description: . Part A: ESOPHAGEAL BIOPSIES: Received in formalin are 3 fragment(s) of hurst, soft tissue measuring 0.1 x 0.1 x 0.1 cm to 0.3 x 0.2 x 0.2 cm submitted entirely in 1 cassette(s) Part B: LEFT DESCENDING COLON POLYP, 50 CM: Received in formalin is 1 fragment(s) of hurst, soft tissue measuring 0.3 x 0.3 x 0.3 cm submitted entirely in 1 cassette(s) /GINA 05/14/2021 0157 Local . 02 Microscopic: . A. An Alcian blue stain was performed to evaluate for intestinal metaplasia and is negative. The control stain showed appropriate reactivity. . B. Additional levels were examined. . * This test was developed and its performance characteristics determined by [employer]. It has not been cleared or approved by the U.S. Food and Drug Administration. The FDA has determined that such clearance or approval is not necessary. This test is used for clinical purposes. It should not be regarded as investigational or for research. . 02 Pathologist provided ICD-10: K63.5, R10.13 . 02 CPT . 834994, 006890, 240417 Performed at: 01 [facility] [address] [id number] MD Johnny Ness MD Phone: [phone] Performed at: [id number] [place], [place] [id number] MD Yamileth Maddox MD Phone: [phone]
--- NOTE | 2021-05-13 11:54 | P.HP_ITS ---
History of Present Illness History of Present Illness Date Patient Seen: 05/13/21 Chief complaint: SCREENING COLONOSCOPY & EGD W/POSS BX'S Narrative: Family history of colon cancer in grandmother and cousin need for colonoscopic screening. Also history of GERD rule out Cam's esophagus Patient History Medical History (Updated 01/16/20 @ 16:57 by Franc Linares MD) Acid reflux Breast cancer, left (~2012) Port-A-Cath in place (~06/2012) Right Achilles tendinitis Thyroid disease Tinnitus Surgical History (Updated 01/16/20 @ 16:57 by Franc Linares MD) Hx of left mastectomy Hx of tubal ligation S/P lumpectomy, left breast (~2012) Family & Social History Social History: household members spouse Tobacco & Substance use: Smoking Status Never smoker alcohol intake current alcohol intake frequency 0-2 drinks per day Substance Use Type does not use Meds Home Medications and Allergies Home Medications Medication Instructions Recorded Confirmed Type acetaminophen 500 mg tablet 1,000 mg PO Q4H PRN #0 01/24/13 01/16/20 History (Tylenol Extra Strength) ascorbic acid (vitamin C) 500 mg 500 mg PO DAILY #0 01/24/13 01/16/20 History tablet levothyroxine 88 mcg tablet 88 mcg PO QAM #0 03/24/16 01/16/20 History (Synthroid) levocetirizine 5 mg tablet (Xyzal) 5 mg PO DAILY #0 01/31/17 01/16/20 History triamcinolone acetonide 0.1 % 1 brian TOPICAL PRN PRN #0 07/18/17 01/16/20 History topical cream calcium carbonate 600 mg calcium 600 mg PO DAILY 04/06/19 01/16/20 History (1,500 mg) tablet (Calcium) cholecalciferol (vitamin D3) 25 1,000 unit PO DAILY 04/06/19 01/16/20 History mcg (1,000 unit) capsule (Vitamin D3) fluticasone propionate 50 2 spray INTRANASAL DAILY 04/06/19 01/16/20 History mcg/actuation nasal spray,suspension ibuprofen 200 mg tablet 200 mg PO NEEDED PRN 04/06/19 01/16/20 History aspirin 81 mg chewable tablet 81 mg PO BID #0 tab 04/20/19 01/16/20 Rx docusate sodium 100 mg capsule 100 mg PO BID #30 cap 04/20/19 01/16/20 Rx (DOK) naproxen 500 mg tablet,delayed 500 mg PO BID PRN #20 tab 08/03/19 01/16/20 Rx release (EC-Naproxen) clopidogrel 75 mg tablet 75 mg PO DAILY 01/16/20 01/16/20 History metoprolol succinate 25 mg 25 mg PO BID 01/16/20 01/16/20 History tablet,extended release 24 hr Allergies Allergy/AdvReac Type Severity Reaction Status Date / Time cephalexin Allergy Unknown Verified 08/27/19 20:07 clindamycin Allergy Unknown Verified 08/27/19 20:07 Sulfa (Sulfonamide AdvReac Severe PASSED OUT Verified 08/27/19 20:07 Antibiotics) PRESERVATIVES Allergy Unknown Uncoded 08/27/19 20:07 SEASONAL Allergy Unknown Uncoded 08/27/19 20:07 Exam Narrative Exam Narrative: Oropharynx free of lesions Chest clear to auscultation percussion Cardiac exam reveals no S3 or murmur Assessment & Plan Assessment & Plan narrative: Family history of colon cancer and personal history of GERD rule out Cam's esophagus need for colorectal cancer screening. Risks, benefits, alternatives h ave been explained for both EGD and colonoscopy. Time Spent With Patient Critical Care time: I spent a total of [] minutes of critical care time on this patient's care today; this time is exclusive of procedural time.
--- NOTE | 2021-05-13 11:56 | P.OP.EGD&C_ITS ---
Operative Date/Time/Diagnoses Date of procedure: 05/13/21 Procedure & Clinicians Study performed: EGD and colonoscopy Indications: GERD and family history of colon cancer Surgeon: Senait Borden Procedure Notes Procedure in detail: After informed consent was obtained the patient was placed in left lateral decubitus position. The video upper scope was placed into the oropharynx and with the patient's help swelled into the esophagus. The esophagus stomach and duodenum were carefully examined. On withdrawal, retroflexed view the GE ju nction was performed. The scope was removed. The patient tolerated procedure well. The patient was then turned to the colonoscope substituted. This is passed through the colon into the cecum. On slow withdrawal mucosa was carefully examined. Preparation was good. The scope was removed. The patient tolerated procedure well. Blood loss none Complications none Sedation mac Findings EGD 1. Two small erosions at the GE junction located at 34 cm. In addition there may have been some irregularity the squamocolumnar junction. Biopsies taken to rule out Cam's. 2. 3 cm hiatal hernia 3. Normal remainder of stomach 4. Normal duodenal bulb and sweep Colonoscopy 1. Left-sided diverticulosis 2. 5 mm polyp at splenic flexure Jumbo biopsy removed completely 3. Otherwise negative colonoscopy to cecum Will be in touch regarding biopsies. She should have follow-up colonoscopy in 5 years.
[2021-05-13] MEDS: SODIUM CHLORIDE 0.9% 1,000 ML 84 ML IV (12:46)
== END 2021-05-13 14:45 | disposition home or self-care (01) ==
PROVIDERS: Family Provider Family Medicine; PCP Family Medicine; Referring Provider Internal Medicine Gastroenterology; Visit Provider Internal Medicine Gastroenterology
PROC: 0DJ08ZZ Inspection of Upper Intestinal Tract, Via Natural or Artificial Opening Endoscopic (ICD-10-PCS; CPT 43235; principal; 2021-05-13 13:00)
PROC: 0DJD8ZZ Inspection of Lower Intestinal Tract, Via Natural or Artificial Opening Endoscopic (ICD-10-PCS; CPT 45378; 2021-05-13 13:00)
DX: Z12.11 Encounter for screening for malignant neoplasm of colon (principal); Z80.0 Family history of malignant neoplasm of digestive organs; K57.30 Diverticulosis of large intestine without perforation or abscess without bleeding; K44.9 Diaphragmatic hernia without obstruction or gangrene; K21.00 Gastro-esophageal reflux disease with esophagitis, without bleeding
CPT/HCPCS: 45380; 43239; J2704

== ENCOUNTER → 2021-07-29 16:02 | Outpatient (CLI) | payer OTHER, SELFPAY ==
[2019-04-19 19:18] VITALS: BMI 28.0
--- NOTE | 2021-07-29 | DI.MG.S_ITS ---
BILATERAL DIGITAL SCREENING MAMMOGRAM 3D/2D WITH CAD: 07/29/2021 CLINICAL: Routine screening. Personal history of left breast cancer. Comparison is made to exams dated: 07/28/2020 mammogram, 07/27/2019 mammogram, and 07/25/2018 mammogram - [facility]. There are scattered fibroglandular elements in both breasts. Current study was also evaluated with a Computer Aided Detection (CAD) system. There is a stable benign area of fat necrosis in the left breast. There also are stable benign calcifications in the left breast. Additionally, there are benign post operative findings in the left breast. No significant masses, calcifications, or other findings are seen in either breast. There has been no significant interval change. IMPRESSION: BENIGN There is no mammographic evidence of malignancy. A 1 year screening mammogram is recommended. This exam was interpreted at Station ID: [id number]. NOTE: For mammograms, a report in lay terms will be sent to the patient. Approximately 15% of breast malignancies will not be visualized mammographically. In the management of a palpable breast mass, a negative mammogram must not discourage biopsy of a clinically suspicious lesion. Electronically Signed By: Massimo raza/jocelyne:07/30/2021 09:02:48 copy to: Mara Carter letter sent: Normal Exam ACR BI-RADS Category 2: Benign Finding(s) 3342F
== END ==
PROVIDERS: Family Provider Family Medicine; PCP Family Medicine; Referring Provider Family Medicine; Visit Provider Family Medicine
DX: Z12.31 Encounter for screening mammogram for malignant neoplasm of breast (principal); Z85.3 Personal history of malignant neoplasm of breast
CPT/HCPCS: 77063; 77067

== ENCOUNTER → 2022-07-30 11:16 | Outpatient (CLI) | payer OTHER, SELFPAY ==
[2019-04-19 19:18] VITALS: BMI 28.0
--- NOTE | 2022-07-30 | DI.MG.S_ITS ---
BILATERAL DIGITAL SCREENING MAMMOGRAM 3D/2D WITH CAD: 07/30/2022 CLINICAL: Routine screening. Personal history of left breast cancer. Comparison is made to exams dated: 07/29/2021 mammogram, 07/28/2020 mammogram, and 07/27/2019 mammogram - [facility]. There are scattered areas of fibroglandular density in both breasts (category b / 25%-50% glandular tissue). Current study was also evaluated with a Computer Aided Detection (CAD) system. There is a stable benign area of fat necrosis in the left breast. There also are benign calcifications in the right breast. Additionally, there are stable benign calcifications in the left breast. Additionally, there also are benign post operative findings in the left breast. No significant masses, calcifications, or other findings are seen in either breast. There has been no significant interval change. IMPRESSION: BENIGN There is no mammographic evidence of malignancy. A 1 year screening mammogram is recommended. This exam was interpreted at Station ID: [id number]. NOTE: For mammograms, a report in lay terms will be sent to the patient. Approximately 15% of breast malignancies will not be visualized mammographically. In the management of a palpable breast mass, a negative mammogram must not discourage biopsy of a clinically suspicious lesion. Electronically Signed By: Naima bennett/jocelyne:07/30/2022 16:07:09 copy to: Mara Carter letter sent: Normal Exam ACR BI-RADS Category 2: Benign Finding(s) 3342F
== END ==
PROVIDERS: Family Provider Family Medicine; PCP Family Medicine; Referring Provider Family Medicine; Visit Provider Family Medicine
DX: Z12.31 Encounter for screening mammogram for malignant neoplasm of breast (principal); Z85.3 Personal history of malignant neoplasm of breast
CPT/HCPCS: 77063; 77067

== ENCOUNTER → 2022-08-31 10:08 | Outpatient (CLI) | payer OTHER, SELFPAY ==
[2019-04-19 19:18] VITALS: BMI 28.0
--- NOTE | 2022-08-31 10:31 | DI.DEXA.S_ITS ---
Indication: postmenopausal osteoporosis; Referring Provider: MAE ESPINOZA Study: Bone densitometry was performed. Exam Date: August 31, 2022 Accession number: [id number] Bone Density: Region BMD T-score Z-score Classification AP Spine(L2, L3, L4) 0.644 -4.0 -1.4 Osteoporosis Femoral Neck (Left) 0.566 -2.6 -0.5 Osteoporosis Total Hip (Left) 0.611 -2.7 -0.9 Osteoporosis Femoral Neck (Right) 0.514 -3.0 -0.9 Osteoporosis Total Hip (Right) 0.614 -2.7 -0.9 Osteoporosis Total Hip Mean 0.612 -2.7 -0.9 Osteoporosis World Health Organization criteria for BMD impression classify patients as: Normal (T-score at or above -1.0), Osteopenia (T-score between -1.0 and -2.5), or Osteoporosis (T-score at or below -2.5). 10-year Fracture Risk: FRAX not reported because: Some T-score for Spine Total or Hip Total or Femoral Neck at or below -2.5 Previous Exams: -- Region Exam Age BMD T-score BMD Change BMD Change Date g/cm2 vs Baseline vs Previous -- AP Spine (L2-L4) 08/31/2022 77 0.644 -4.0 -0.068 (-9.5%)# -0.068 (-9.5%)# 12/23/2020 75 0.712 -3.3 Total Hip(Left) 08/31/2022 77 0.611 -2.7 0.015 (2.4%)# 0.015 (2.4%)# 12/23/2020 75 0.596 -2.8 Total Hip(Right) 08/31/2022 77 0.614 -2.7 -0.030 (-4.7%)# -0.030 (-4.7%)# 12/23/2020 75 0.644 -2.4 -- *Denotes significance at 95% confidence level, LSC for AP Spine = 0.022 g/cm2, LSC for Total Hip = 0.027 g/cm2 # Denotes dissimilar scan types or analysis methods Impression: The patient has osteoporosis, based on the Total Spine T-score. No significant bone loss was observed. Discussion: INCREASED RISK OF FRACTURE. BONE DENSITY IS UNDESIRABLY LOW AT ONE OR MORE SKELETAL SITES, CONSISTENT WITH POSTMENOPAUSAL OSTEOPOROSIS. This patient's lowest T-score meets the World Health Organization's (WHO) criteria for osteoporosis at one or more sites (T-score -2.5 or below). In untreated patients, the risk of osteoporotic fracture increases approximately two-fold for each 1.0 SD decrease in T-score. Low bone density is not the only risk factor for fracture; also consider factors such as patient's age, frailty or poor health, risk of falling, risk of injury, previous osteoporotic fracture, family history of osteoporosis, cigarette smoking, low body weight, etc. Not everyone with low bone mineral density has osteoporosis; osteomalacia and other metabolic bone disorders should also be considered. Patients who have osteoporosis should be evaluated for specific diseases and conditions (secondary causes) that may cause or contribute to bone loss. The [place] [employer] Clinical Endocrinologists (AACE) and National Osteoporosis Foundation (NOF) recommend pharmacologic intervention for all postmenopausal women whose T-score is in this range. The patient should follow a healthful lifestyle (good nutrition with adequate calcium and vitamin D, and appropriate weight-bearing exercise). Follow-Up: Consider a repeat BMD and Vertebral Fracture Assessment (VFA) exam in 2 years or sooner if medically necessary, to reassess this patient's status. Reported by: Rodrigo Matta M.D. on 08/31/2022 10:38:00 AM.
== END ==
PROVIDERS: Family Provider Family Medicine; PCP Family Medicine; Referring Provider Family Medicine; Visit Provider Family Medicine
DX: M81.0 Age-related osteoporosis without current pathological fracture (principal)
CPT/HCPCS: 77080

== ENCOUNTER 2023-02-08 14:56 | Emergency (ER) | payer OTHER, SELFPAY ==
[2019-04-19 19:18] VITALS: BMI 28.0
[2023-02-08] VITALS (11 sets, daily range): BP systolic 138–150; BP diastolic 67–80; PULSE 62–79; RESP 18; TEMP 36.7; O2SAT 96–99
--- NOTE | 2023-02-08 15:32 | DI.CT.S_ITS ---
PROCEDURE: CT HEAD/BRAIN WO CON INDICATIONS: forgetting names, TECHNIQUE: Noncontrast 4.5 mm thick angled axial sections acquired from the foramen magnum to the vertex, with coronal and sagittal reformats. For radiation dose reduction, the following was used: automated exposure control, adjustment of mA and/or kV according to patient size. COMPARISON: [facility], CT, HEAD WITHOUT CONTRAST, 09/28/2011, 11:11. [facility], CT, CT HEAD/BRAIN WO CON, 04/06/2019, 15:20. (Additional prior studies are not available of for review from the archive at the time of this dictation.) FINDINGS: Image quality: Excellent. CSF spaces: Basal cisterns are patent. No extra-axial fluid collections. The ventricles are symmetric in size and shape. Brain: No intracranial bleeds or masses. There is cerebral volume loss for age, with resultant ventricular and sulcal prominence. There are periventricular and deep white matter chronic small vessel ischemic changes. There is intracranial internal carotid artery atherosclerosis. Skull and face: Calvarium and visualized facial bones appear intact, without suspicious lesions. Sinuses: Visualized sinuses and mastoids are clear. IMPRESSION: Noncontrast head CT within normal limits for age, stable from prior. Dictated by: Alex Walton M.D. on 02/08/2023 at 15:05 Approved by: Alex Walton M.D. on 02/08/2023 at 15:07
[2023-02-08 16:08] LABS: Add Manual Diff / Slide Review NO; Basophils Absolute Auto 0 /uL (0-100); Basophils Percent Auto 0.6 % (0-2); Eosinophils Absolute Auto 100 /uL (0-450); Eosinophils Percent Auto 1.6 % (2-4); Hematocrit 42.7 % (36-46); Hemoglobin 14.8 g/dL (12.0-16.0); Lymphocytes Absolute Auto 1100 /uL (1100-4500); Lymphocytes Percent Auto 21.3 % (25-40); Mean Corpuscular HGB Conc 34.7 % (30-36); Mean Corpuscular Hemoglobin 32.2 PG (26-34); Mean Corpuscular Volume 92.8 fL (80-100); Monocytes Absolute Auto 600 /uL (0-900); Monocytes Percent Auto 11.6 % (3-14); Neutrophils Absolute Auto 3400 /uL (1500-7000); Neutrophils Percent Auto 64.9 % (50-75); Platelet Count 213 X10^3/uL (150-400); Red Cell Distribution Width 13.3 % (11.6-14.8); White Blood Cell Count 5.2 X10^3/uL (4.5-11.0)
[2023-02-08 16:19] LABS: UR Morphine/Opiate cutoff 300 Negative (Negative); Ur Creatinine Normal (Normal); Ur Specific Gravity Normal (Normal); Urine Amphetamines Negative (Negative); Urine Barbiturates Negative (Negative); Urine Benzodiazepines Negative (Negative); Urine Cocaine Negative (Negative); Urine MDMA Negative (Negative); Urine Methadone Negative (Negative); Urine Methamphetamines Negative (Negative); Urine Oxycodone Negative (Negative); Urine Phencyclidine Negative (Negative); Urine Tetrahydrocannabinol Negative (Negative); Urine Tricyclic Antidepressant Negative (Negative); Urine pH Normal (Normal)
[2023-02-08 16:25] LABS: Appearance Urine UA CLEAR; Bilirubin Urine UA NEGATIVE (NEGATIVE); Color Urine UA YELLOW; Glucose Urine UA NEGATIVE (Negative); Ketones Urine UA NEGATIVE (NEGATIVE); Leukocyte Esterase Urine UA 1+ (NEGATIVE); Nitrite Urine UA NEGATIVE (Negative); Occult Blood Urine UA TRACE-INTACT (Negative); Protein Urine UA NEGATIVE (Negative); Urobilinogen Urine UA 0.2 E.U./dL (0.2)
[2023-02-08 16:30] LABS: Prothrombin Time 11.4 SECONDS (10.1-12.7)
[2023-02-08 16:32] LABS: PTT Partial Thromboplastin Tim 28 SECONDS (26-36)
[2023-02-08 16:33] LABS: Alanine Aminotransferase 19 IU/L (<35); Albumin 4.1 g/dL (3.5-5.0); Albumin Globulin Ratio 1.3 (1.0-2.8); Alkaline Phosphatase 56 U/L (38-126); Aspartate Aminotransferase 26 IU/L (14-36); BUN Creatinine Ratio 18.9 (6-22); Bilirubin Total 0.3 mg/dL (0.2-1.3); Blood Urea Nitrogen 18 mg/dL (7-17); Calcium 8.7 mg/dL (8.4-10.2); Carbon Dioxide 28 mmol/L (22-32); Chloride 101 mmol/L (98-107); Creatine Kinase 36 U/L (30-135); Estimated Glomerular Filt Rate > 60 mL/min (>60); Ethanol (ETOH) < 10 mg/dL; Globulin 3.2 g/dL (1.7-4.1); Glucose 108 mg/dL (80-110); HEMOLYSIS < 15 (0-50); Potassium 4.7 mmol/L (3.4-5.1); Sodium 135 mmol/L (137-145); Total Protein 7.3 g/dL (6.3-8.2)
[2023-02-08 16:44] LABS: Bacteria Urine Occasional (0-1); Culture Indicated Urine Specimen Cultured; RBC Urine 0-1/HPF (0-5/HPF); Squamous Epithelial Cell Urine 1-5 /HPF (0-5/HPF); WBC Urine 1-5/HPF (0-5/HPF); pH Urine UA 6.5 (4.5-8.0)
[2023-02-08 16:45] LABS: Troponin I < 0.012 ng/mL (0.01-0.034)
--- NOTE | 2023-02-08 18:29 | ED_ITS ---
HPI - Neuro Symptoms/Deficit General Chief Complaint: Neuro Symptoms/Deficit Stated Complaint: Mini strokes Time Seen by Provider: 02/08/23 15:32 Source: patient and family Mode of arrival: Wheelchair History of Present Illness HPI Narrative: Patient is a 77-year-old female who is here for evaluation of which she thinks her potential mini strokes. Proximally 3 days ago the patient had an episode that lasted approximately 10 minutes of which she states his inability to remember names. At the time she had no other associated symptoms to include headache or vision changes or chest pain or palpitations or shortness of breath. She currently has no symptoms. She states she had symptoms very similar to this many years ago. She saw a neurologist who told her that she was having ?mini strokes? which is why she thought she is having those a couple days ago. It has been a couple days since she had symptoms. She is on Plavix. At 1 point she was on high blood pressure medicines but she took herself off these medicines because she states that her blood pressure was becoming normal/low. She does not check her blood pressure on a regular basis now. She had no upper lower extremity symptoms. Related Data Home Medications Medication Instructions Recorded Confirmed acetaminophen 500 mg tablet 1,000 mg PO Q4H PRN PAIN ##0 01/24/13 01/16/20 (Tylenol Extra Strength) ascorbic acid (vitamin C) 500 mg 500 mg PO DAILY ##0 01/24/13 01/16/20 tablet levothyroxine 88 mcg tablet 75 mcg PO QAM ##0 03/24/16 09/29/22 (Synthroid) calcium carbonate 600 mg calcium 600 mg PO DAILY 04/06/19 09/29/22 (1,500 mg) tablet (Calcium) cholecalciferol (vitamin D3) 25 1,000 unit PO DAILY 04/06/19 09/29/22 mcg (1,000 unit) capsule (Vitamin D3) fluticasone propionate 50 2 spray intranasal DAILY 04/06/19 09/29/22 mcg/actuation nasal spray,suspension ibuprofen 200 mg tablet 200 mg PO NEEDED PRN PAIN 04/06/19 09/29/22 clopidogrel 75 mg tablet 75 mg PO DAILY 01/16/20 09/29/22 clobetasol 0.05 % shampoo 1 applic topical DAILY 09/29/22 09/29/22 ketoconazole 2 % shampoo 1 applic topical 3XW 09/29/22 09/29/22 ranitidine HCl 150 mg capsule 150 mg DAILY 09/29/22 09/29/22 tacrolimus 0.1 % topical ointment 1 applic topical BID 09/29/22 09/29/22 Previous Rx's Medication Instructions Recorded naproxen 500 mg tablet,delayed 500 mg PO BID PRN pain #20 tabs 08/03/19 release (EC-Naproxen) Allergies Allergy/AdvReac Type Severity Reaction Status Date / Time cephalexin Allergy Unknown Verified 05/13/21 12:26 clindamycin Allergy Unknown Verified 05/13/21 12:26 Sulfa (Sulfonamide AdvReac Severe PASSED OUT Verified 05/13/21 12:26 Antibiotics) PRESERVATIVES Allergy Unknown Uncoded 08/27/19 20:07 SEASONAL Allergy Unknown Uncoded 08/27/19 20:07 Review of Systems Review of Systems ROS Unobtainable: All systems reviewed & are unremarkable except as noted in HPI and below Constitutional Constitutional: Reports system reviewed and no additional complaints, except as documented Eyes Eyes: Reports system reviewed and no additional complaints, except as documented ENT Ears, Nose, Mouth, and Throat: Reports system reviewed and no additional complaints, except as documented Patient History Medical History Acid reflux Breast cancer, left (~2012) Port-A-Cath in place (~06/2012) Right Achilles tendinitis Thyroid disease Tinnitus Surgical History (Updated 01/16/20 @ 16:57 by Franc Linares MD) Hx of left mastectomy Hx of tubal ligation S/P lumpectomy, left breast (~2012) Social History household members: spouse Smoking Status: Never smoker alcohol intake: former Smoking Status: Never smoker alcohol intake frequency: 0-2 drinks per day Substance Use Type: does not use Exam Initial Vital Signs Initial Vital Signs: Vital Signs Temperature 98.1 F 02/08/23 15:22 Pulse Rate 79 02/08/23 15:22 Respiratory Rate 18 02/08/23 15:22 Blood Pressure 141/71 H 02/08/23 15:22 Pulse Oximetry 99 02/08/23 15:22 Oxygen Delivery Method Room Air 02/08/23 15:22 Const General: cooperative, comfortable and No ill appearing HENMT Head: normal to inspection and normocephalic Resp Effort & Inspection: normal respiratory effort Auscultation: clear to auscultation bilaterally Cardio Rate: regular rate Rhythm: regular rhythm GI Inspection: normal to inspection Neuro General: patient alert, patient awake, patient oriented x3 and moves all extremities Cognition: normal cognition Speech: speech normal Motor: muscle tone normal throughout Extrem General: normal to inspection and capillary refill normal Scores ABCD2 Age >= 60 years: yes Initial BP. Either SBP >= 140 or DBP >= 90.: yes Clinical features of the TIA: other symptoms Duration of symptoms: 10-59 minutes History of diabetes: no ABCD2 Score: 3 GCS [place] coma scale eye opening: Spontaneous [place] coma scale verbal response: Orientated [place] coma scale motor response: Obey commands [place] coma scale total score: 15 Course Orders Ordered: ED Orders 02/08/23 18:34 EKG-12 Lead Stat Vital Signs Vital signs: Vital Signs - 8 hr 02/08/23 18:00 02/08/23 18:00 02/08/23 18:30 Pulse Rate 62 Blood Pressure 150/67 H 150/72 H Pulse Oximetry 98 Oxygen Delivery Method 02/08/23 18:30 Pulse Rate 73 Blood Pressure Pulse Oximetry 98 Oxygen Delivery Method Room Air MDM - Neuro Symptoms/Deficit Lab Data Attestation: I reviewed the patient's lab results. 02/08/23 15:46 02/08/23 15:46 Labs: Lab Results 02/08/23 02/08/23 02/08/23 Range/Units 15:46 15:46 15:46 WBC 5.2 (4.5-11.0) X10^3/uL RBC 4.60 (4.0-5.2) X10^6/uL Hgb 14.8 (12.0-16.0) g/dL Hct 42.7 (36-46) % MCV 92.8 (80-100) fL MCH 32.2 (26-34) PG MCHC 34.7 (30-36) % RDW 13.3 (11.6-14.8) % Plt Count 213 (150-400) X10^3/uL Neut % (Auto) 64.9 (50-75) % Lymph % (Auto) 21.3 L (25-40) % [place] % (Auto) 11.6 (3-14) % Eos % (Auto) 1.6 L (2-4) % Baso % (Auto) 0.6 (0-2) % Neut # (Auto) 3400 (5459-3735) /uL Lymph # (Auto) 1100 (7238-5627) /uL [place] # (Auto) 600 (0-900) /uL Eos # (Auto) 100 (0-450) /uL Baso # (Auto) 0 (0-100) /uL PT 11.4 (10.1-12.7) SECONDS INR 1.0 (0.9-1.3) APTT 28 (26-36) SECONDS Sodium 135 L (137-145) mmol/L Potassium 4.7 (3.4-5.1) mmol/L Chloride 101 (98-107) mmol/L Carbon Dioxide 28 (22-32) mmol/L BUN 18 H (7-17) mg/dL Creatinine 0.95 (0.52-1.04) mg/dL Estimated GFR > 60 (>60) mL/min BUN/Creatinine Ratio 18.9 (6-22) Glucose 108 (80-110) mg/dL Calcium 8.7 (8.4-10.2) mg/dL Total Bilirubin 0.3 (0.2-1.3) mg/dL AST 26 (14-36) IU/L ALT 19 (<35) IU/L Alkaline Phosphatase 56 (38-126) U/L Total Creatine Kinase 36 (30-135) U/L Troponin I < 0.012 (0.01-0.034) ng/mL Total Protein 7.3 (6.3-8.2) g/dL Albumin 4.1 (3.5-5.0) g/dL Globulin 3.2 (1.7-4.1) g/dL Albumin/Globulin Ratio 1.3 (1.0-2.8) Urine Color Urine Appearance Urine pH (4.5-8.0) Ur Specific [place] (1.000-1.035) Urine Protein (Negative) Urine Glucose (UA) (Negative) g/dL Urine Ketones (NEGATIVE) Urine Occult Blood (Negative) Urine Nitrate (Negative) Urine Bilirubin (NEGATIVE) Urine Urobilinogen (0.2) E.U./dL Ur Leukocyte Esterase (NEGATIVE) Urine RBC (0-5/HPF) Urine WBC (0-5/HPF) Ur Squamous Epith Cells (0-5/HPF) Urine Bacteria (None) Ur Culture Indicated? U Opiates 300ng/mL cut (Negative) Ur Oxycodone Screen (Negative) Urine Methadone Screen (Negative) Ur Barbiturates Screen (Negative) U Tricyclic Antidepress (Negative) Ur Phencyclidine Scrn (Negative) Ur Amphetamines Screen (Negative) U Methamphetamines Scrn (Negative) Ur MDMA Scrn (Ecstasy) (Negative) U Benzodiazepines Scrn (Negative) Urine Cocaine Screen (Negative) U Marijuana (THC) Screen (Negative) Ethyl Alcohol < 10 ( - 10) mg/dL 02/08/23 02/08/23 Range/Units 16:03 16:03 WBC (4.5-11.0) X10^3/uL RBC (4.0-5.2) X10^6/uL Hgb (12.0-16.0) g/dL Hct (36-46) % MCV (80-100) fL MCH (26-34) PG MCHC (30-36) % RDW (11.6-14.8) % Plt Count (150-400) X10^3/uL Neut % (Auto) (50-75) % Lymph % (Auto) (25-40) % [place] % (Auto) (3-14) % Eos % (Auto) (2-4) % Baso % (Auto) (0-2) % Neut # (Auto) (0986-2206) /uL Lymph # (Auto) (1725-9818) /uL [place] # (Auto) (0-900) /uL Eos # (Auto) (0-450) /uL Baso # (Auto) (0-100) /uL PT (10.1-12.7) SECONDS INR (0.9-1.3) APTT (26-36) SECONDS Sodium (137-145) mmol/L Potassium (3.4-5.1) mmol/L Chloride (98-107) mmol/L Carbon Dioxide (22-32) mmol/L BUN (7-17) mg/dL Creatinine (0.52-1.04) mg/dL Estimated GFR (>60) mL/min BUN/Creatinine Ratio (6-22) Glucose (80-110) mg/dL Calcium (8.4-10.2) mg/dL Total Bilirubin (0.2-1.3) mg/dL AST (14-36) IU/L ALT (<35) IU/L Alkaline Phosphatase (38-126) U/L Total Creatine Kinase (30-135) U/L Troponin I (0.01-0.034) ng/mL Total Protein (6.3-8.2) g/dL Albumin (3.5-5.0) g/dL Globulin (1.7-4.1) g/dL Albumin/Globulin Ratio (1.0-2.8) Urine Color Yellow Urine Appearance Clear Urine pH 6.5 (4.5-8.0) Ur Specific [place] 1.010 (1.000-1.035) Urine Protein Negative (Negative) Urine Glucose (UA) Negative (Negative) g/dL Urine Ketones Negative (NEGATIVE) Urine Occult Blood Trace-intact (Negative) Urine Nitrate Negative (Negative) Urine Bilirubin Negative (NEGATIVE) Urine Urobilinogen 0.2 (0.2) E.U./dL Ur Leukocyte Esterase 1+ H (NEGATIVE) Urine RBC 0-1/hpf (0-5/HPF) Urine WBC 1-5/hpf (0-5/HPF) Ur Squamous Epith Cells 1-5 /hpf (0-5/HPF) Urine Bacteria Occasional (0-1) (None) Ur Culture Indicated? Specimen cultured U Opiates 300ng/mL cut Negative (Negative) Ur Oxycodone Screen Negative (Negative) Urine Methadone Screen Negative (Negative) Ur Barbiturates Screen Negative (Negative) U Tricyclic Antidepress Negative (Negative) Ur Phencyclidine Scrn Negative (Negative) Ur Amphetamines Screen Negative (Negative) U Methamphetamines Scrn Negative (Negative) Ur MDMA Scrn (Ecstasy) Negative (Negative) U Benzodiazepines Scrn Negative (Negative) Urine Cocaine Screen Negative (Negative) U Marijuana (THC) Screen Negative (Negative) Ethyl Alcohol ( - 10) mg/dL Urine Dip Bedside Urine Glucose Negative Bedside Urine Bilirubin - Negative Bedside Urine Ketone - Negative Urine Specific [place] 1.010 Bedside Urine Occult Blood +/- Bedside Urine pH 6.0 Bedside Urine Protein - Negative Bedside Urine Urobilinogen - Negative Bedside Urine Nitrite - Negative Bedside Urine Leukocytes +/- [address] scan - head: Radiologist's Impression: PROCEDURE:? CT HEAD/BRAIN WO CON ? INDICATIONS:? forgetting names, ? TECHNIQUE:? Noncontrast 4.5 mm thick angled axial sections acquired from the foramen magnum to the vertex, with coronal and sagittal reformats.? For radiation dose reduction, the following was used:? automated exposure control, adjustment of mA and/or kV according to patient size.? ? COMPARISON:? [facility], CT, HEAD WITHOUT CONTRAST, 09/28/2011, 11:11.? [facility], CT, CT HEAD/BRAIN WO CON, 04/06/2019, 15:20.? (Additional prior s tudies are not available of for review from the archive at the time of this dictation.) ? FINDINGS:? Image quality:? Excellent.? ? CSF spaces:? Basal cisterns are patent.? No extra-axial fluid collections.? The ventricles are symmetric in size and shape.? ? Brain:? No intracranial bleeds or masses.? There is cerebral volume loss for age, with resultant ventricular and sulcal prominence.? There are periventricular and deep white matter chronic small vessel ischemic changes.? There is intracranial internal carotid artery atherosclerosis.? ? Skull and face:? Calvarium and visualized facial bones appear intact, without suspicious lesions.? ? Sinuses:? Visualized sinuses and mastoids are clear.? ? ? IMPRESSION:? Noncontrast head CT within normal limits for age, stable from prior. ECG Data Attestation: I personally reviewed and interpreted this ECG as follows: Interpretation: Sinus rhythm Ventricular rate of 69 Normal axis Normal QRS Normal QTC No ST T wave changes MDM Narrative Medical decision making narrative: Patient is asymptomatic and has been asymptomatic for the past 3 days. She has a ABCD2 score 3. She was hypertensive with a systolic blood pressure in the 150s. Her presenting neurologic symptoms were forgetting names not weakness or facial droop for slurring of her words. She is on Plavix. I did discuss the case with Dr. Almanzar who was on-call for the patient's primary doctor. We did discuss her case. We will have her contact the office tomorrow to schedule further outpatient workup to include echocardiogram and MRI. We will start her on an aspirin. We did discuss starting her on blood pressure medicines however she states that her blood pressure at home is normally a systolic of 120 however she does admit she is not taken it in a while. Before starting her on blood pressure medicines potentially dropping her blood pressure low I will have her start taking her blood pressure at home on a regular basis and recording the results so she can talk with her primary doctor about this. She will continue to take the Plavix and had aspirin onto this. She was given return precautions. She expressed understanding and agreement. Discharge Plan Departure Patient Disposition: Home Clinical Impression: Transient cerebral ischemia Instructions: DI for Transient Ischemic Attack Activity Restrictions/Additional Instructions: Continue to take all of your medications as directed however we would like you to start on a baby aspirin on a daily basis. You can purchase this over-the- counter. I also recommend that you start taking your blood pressure at home on a daily basis to see whether or not you potentially need to be put back on blood pressure medications. Return to the emergency department for new or worsening symptoms. Prescriptions: No Action acetaminophen [Tylenol Extra Strength] 500 MG tablet 1,000 mg PO Q4H PRN (Reason: PAIN) Qty: 0 ascorbic acid (vitamin C) 500 mg Tablet 500 mg PO DAILY Qty: 0 levothyroxine [Synthroid] 88 MCG tablet 75 mcg PO QAM Qty: 0 calcium carbonate [Calcium 600] 600 mg calcium (1,500 mg) Tablet 600 mg PO DAILY fluticasone propionate 50 mcg/actuation [place],Suspension 2 spray INTRANASAL DAILY cholecalciferol (vitamin D3) [Vitamin D3] 1,000 unit Capsule 1,000 unit PO DAILY ibuprofen 200 MG tablet 200 mg PO NEEDED PRN (Reason: PAIN) clopidogrel 75 mg Tablet 75 mg PO DAILY ketoconazole 2 % Shampoo 1 applic TOPICAL 3XW tacrolimus 0.1 % Ointment 1 applic TOPICAL BID ranitidine HCl [Zantac] 150 mg Capsule 150 mg DAILY clobetasol 0.05 % Shampoo 1 applic TOPICAL DAILY naproxen [EC-Naproxen] 500 mg tablet,delayed release (DR/EC) 500 mg PO BID PRN (Reason: pain) Qty: 20 0RF Referrals: Franc Almanzar MD [Physician] - Mara Carter MD [Primary Care Provider] - Stand Alone Forms: Patient Portal/API
== END 2023-02-08 19:28 | disposition home or self-care (01) ==
PROVIDERS: Emergency Medicine; Emergency Provider Emergency Medicine; Family Provider Family Medicine; PCP Family Medicine
DX: G45.9 Transient cerebral ischemic attack, unspecified (principal); R07.9 Chest pain, unspecified; Z79.01 Long term (current) use of anticoagulants
CPT/HCPCS: 36415; 70450; 80053; 80305; 80320; 81001; 81003; 82550; 84484; 85025; 85610; 85730; 87086; 87147; 93005; 99284

== ENCOUNTER → 2023-02-13 09:11 | Outpatient (CLI) | payer OTHER, SELFPAY ==
[2019-04-19 19:18] VITALS: BMI 28.0
--- NOTE | 2023-02-13 | DI.ECHO.S_ITS ---
[facility] +---------+ : : [address] : : : : [id number] : : : : Phone: [phone]+ Echocardiogram Report + + :Name: NHUNG BASSETT Study Date: 02/13/2023 Height: 62 in : :[facility] ReadingLocation: Weight: 150 lb : : Gender: Female BSA: 1.7 m2 : :: 1945 Age: 77 yrs BP: 144/80 mmHg: :Reason For Study: TIA : : Performed By: Carly Newell : :Referring: MAE ESPINOZA : + + Interpretation Summary The left ventricle is normal in size and wall thickness. Left ventricular systolic function appears normal without focal wall motion abnormalities. The ejection fraction is estimated to be 60-65%. LVEF has not changed. Diastolic parameters suggest a relaxation abnormality of the left ventricle, consistent with probable normal filling pressures. The right ventricle is normal in size and function. The right ventricular systolic pressure is estimated to be at least 27 mmHg based on an estimated right atrial pressure of 3 mm Hg. The left atrium is mildly dilated. The right atrium is normal in size. There is no significant valvular heart disease. The aortic root is normal size. Procedure: A two-dimensional transthoracic echocardiogram with color flow and Doppler was performed. The study quality was technically adequate. Comparison is made with the echocardiogram of 10/19/2019. The patient was in normal sinus rhythm during the exam. Left Ventricle: The left ventricle is normal in size and wall thickness. There is no thrombus. There is no ventricular septal defect visualized. Left ventricular systolic function appears normal without focal wall motion abnormalities. The ejection fraction is estimated to be 60-65%. Diastolic parameters suggest a relaxation abnormality of the left ventricle, consistent with probable normal filling pressures. Right Ventricle: The right ventricle is normal in size and function. Atria: The left atrium is mildly dilated. The right atrium is normal in size. Doppler interrogation and injection of saline echo contrast shows no evidence for an interatrial shunt. Mitral Valve: The mitral valve is normal in structure and function. There is no mitral valve stenosis. There is trace mitral regurgitation. Aortic Valve: The aortic valve is trileaflet. The aortic valve opens well. There is no aortic valve stenosis. There is trace aortic regurgitation. Tricuspid Valve: The tricuspid valve is normal in structure and function. There is trace tricuspid regurgitation. The right ventricular systolic pressure is estimated to be at least 27 mmHg based on an estimated right atrial pressure of 3 mm Hg. Pulmonic Valve: The pulmonic valve is not well seen, but is grossly normal. There is a trace or physiologic amount of pulmonic regurgitation. There is no significant valvular heart disease. Great Vessels: The aortic root is normal size. The ascending aorta is normal in size. The aortic arch could not be visualized. The IVC is of normal diameter and collapses greater than 50% with a sniff. This suggests a low right atrial pressure of 3 mm Hg. Pericardium/ Pleura There is no pericardial effusion. There is an anterior echo-free space consistent with a fat pad. There has been no significant change since the previous study. MMode/2D Measurements & Calculations LVIDd: 4.2 cm LVOT diam: 1.9 cm LVIDs: 2.8 cm Ao root diam: 3.6 cm FS: 32.5 % asc Aorta Diam: 3.7 cm EPSS: 0.40 cm IVSd: 0.78 cm LVPWd: 0.65 cm LV erwin. diameter/BSA (cm/m^2): 2.5 LV sys. diameter/BSA (cm/m^2): 1.7 LA A2 area: 23.5 cm2 RA long axis: 5.6 cm LA A4 area: 17.2 cm2 RA area: 16.4 cm2 LA length (vol): 5.6 cm RA vol: 40.9 ml LA vol: 61.7 ml RA : 24.2 ml/m2 LA vol index: 36.5 ml/m2 IVC diam: 1.2 cm RVD1 (basal): 3.4 cm TAPSE: 1.8 cm Doppler Measurements & Calculations Ao V2 max: 134.3 cm/sec LVOT Max Meño: 95.2 cm/sec Ao V2 mean: 104.1 cm/sec LV V1 max P.6 mmHg Ao max P.2 mmHg LV V1 VTI: 21.7 cm Ao mean P.6 mmHg RONALDO(I,D): 2.1 cm2 Ao V2 VTI: 30.0 cm RONALDO(V,D): 2.1 cm2 sev ratio: 0.72 RONALDO indexed to BSA (cm^2/m^2): 1.2 MV E max meño: 74.2 cm/sec TR max meño: 243.5 cm/sec MV A max meño: 89.2 cm/sec TR max P.7 mmHg MV E/A: 0.83 PA V2 max: 81.0 cm/sec Med Peak E' Meño: 6.6 cm/sec PA V2 mean: 56.3 cm/sec E/E' med: 11.3 PA mean P.4 mmHg Lat Peak E' Meño: 9.1 cm/sec PA pr(Accel): 27.6 mmHg E/E' lat: 8.2 E/e' average: 9.7 MV dec time: 0.21 sec SV(LVOT): 62.8 ml Reading Physician:05:22 PM
--- NOTE | 2023-02-13 | DI.MRI.S_ITS ---
PROCEDURE: MR STROKE Pre- and post-contrast brain MRI, non-contrast brain MR angiogram, pre- and postcontrast neck MR angiogram INDICATIONS: 77-year-old female with generalized weakness, confusion, memory loss TECHNIQUE: Brain: Noncontrast axial T1 spin echo, axial T2 fast spin echo, sagittal and axial FLAIR, coronal T2 fast spin echo, axial gradient echo, axial diffusion and ADC through the brain. After the administration of contrast, axial 3D VIBE of the cranial vasculature and brain. Brain MRA: Non-contrast 3-D time of flight MR angiogram, with multiple wkoxfwy-qibjwwyxi-gpnwvqlflx (MIP) reformats performed. Neck MRA: Axial and sagittal TruFISP through the neck. Coronal dynamic MR angiogram during administration of contrast in the arterial and venous phases, with 3-dimenstional ghuamed-sblbzniri-ggaqufugof (MIP) reformats constructed from subtraction images. COMPARISON: None. FINDINGS: Image quality: Excellent. BRAIN: CSF spaces: Ventricles are normal in size and shape. Basal cisterns are patent. No extra-axial fluid collections. Brain: No intracranial masses or hemorrhage. Foster/white matter interface is normal. Brainstem appears normal. Diffusion-weighted sequence is unremarkable without evidence of acute infarct. Normal intravascular flow voids are present. Atrophy and multifocal white matter chronic ischemic change. Old lacunar infarcts noted in the left caudate nucleus Skull and face: Calvarial marrow signal is normal. Orbits appear normal. Sinuses: Sinuses and mastoids are clear. BRAIN MR ANGIOGRAM: Anterior circulation: Intracranial internal carotid arteries are normal in size and enhancement. The flow within the paired anterior cerebral arteries is normal and symmetric. The flow within the middle cerebral arteries is normal and symmetric. The anterior communicating artery is seen. No stenoses, occlusions, or aneurysms. Posterior circulation: The visualized portions of the vertebral arteries demonstrate normal caliber, and join to form a normal appearing basilar artery. The flow within the posterior cerebral arteries is normal and symmetric. No stenoses, occlusions, or aneurysms. NECK MR ANGIOGRAM: Carotids: Great vessels demonstrate a conventional anatomy as they arise from the aortic arch. The origins of the common carotid arteries appear patent. The calibers and courses of both common carotid arteries are normal. The bifurcation regions appear normal bilaterally. The internal carotid arteries demonstrate normal course and caliber. Posterior circulation: The origins of the vertebral arteries appear patent. More superior portions of both vertebral arteries demonstrate normal course and caliber, and join to form a normal appearing basilar artery. Miscellaneous: Subclavian arteries appear patent. Pre-contrast images through the neck show no soft tissue abnormalities. IMPRESSION: Moderate atrophy white matter chronic ischemic change. Old left basal ganglia lacunar infarct. No acute infarct, hemorrhage or mass lesion. Unremarkable MR angiogram of the head and neck without large vessel occlusion, aneurysm or vascular malformation. Approved by: Matias Liu M.D. on 02/13/2023 at 11:49
== END ==
PROVIDERS: Family Provider Family Medicine; PCP Family Medicine; Referring Provider Family Medicine; Visit Provider Family Medicine
DX: G45.9 Transient cerebral ischemic attack, unspecified (principal)
CPT/HCPCS: 70548; 70553; 93306

== ENCOUNTER 2023-05-11 10:30 | Outpatient (RCR) | payer OTHER, SELFPAY ==
[2019-04-19 19:18] VITALS: BMI 28.0
--- NOTE | 2023-03-10 10:35 | PT.OIE ---
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/23) Past Medical History (Last Reviewed 02/09/23 @ 01:37 by Prakash Chan DO) Acid reflux Breast cancer, left (~2012) Port-A-Cath in place (~06/2012) Right Achilles tendinitis Thyroid disease Tinnitus Past Surgical History (Last Reviewed 08/27/19 @ 20:35 by Franc Hamilton MD) Hx of left mastectomy Hx of tubal ligation S/P lumpectomy, left breast (~2012) Visit Care Team Role Provider Type Mara Carter MD Attending Provider Physician Family Provider Primary Care Provider Referring Provider Specialty: Family Practice Address: [address] [place] [address], [facility] [place], [facility] Email: [email or web address] Physical Therapy Initial Evaluation PT-OP-A Visit Information Start: 03/10/23 10:34 Freq: Status: Active Protocol: Document 03/10/23 10:35 AM (Rec: 03/10/23 12:55 AM [id number]) Out-Patient Physical Therapy Visit Information Visit Information Visit Type Initial Evaluation Visit Start Time 10:35 Visit Stop Time 11:20 Total Visit Minutes 45 Visit Number 1 Number of MILL WASHER Visits 0 PT-OP-B Current Condition Start: 03/10/23 10:34 Freq: Status: Active Protocol: Document 03/10/23 10:35 AM (Rec: 03/10/23 12:55 AM [id number]) Current Condition History of Current Condition Onset Date 02/08/23 Current Complaints Balance, falls History of Current Condition Pt reports that she has had 2 recent TIA's on February 08. Pt reports that she has had TIA's in the past and her brain MRI showed prior stroke. She went to the ER and they did not admit her at that time . Pt reports that she has been having issues with her balance for 6+ months prior to recent TIA. Pt also has macular degeneration and reports difficulty seeing in the dark. Pt reports that she had a fall and hit her head. Pt reports frequent falls. Pt reports difficulty with ascending/descending stairs. Pt reports difficulty with walking on uneven terrain. Pt reports that she has had 2-3 falls in the last few months. Pt reports getting in and out of tub is difficult. She thinks she might need a shower chair. Pt reports that she does not use an AD, though will often hang on to her when ambulating in the community. Prior Treatments and Tests Brain MRI Future Testing and Treatments Planned Neurologist Treatment Goals Patient/Caregiver Goals Pt motivated to improve balance. Prior Functional Status Baseline Function- ADL's Independent Baseline Function- Mobility Independent Current Functional Impairments (Reported) Functional Limitations- ADL's Independent Functional Limitations- Mobility/Gait difficulty with stairs PT-OP-D Balance Start: 03/10/23 10:34 Freq: Status: Active Protocol: Document 03/10/23 10:35 AM (Rec: 03/10/23 12:55 AM [id number]) Balance Tests Single Limb Standing Single Limb- Right unable Single Limb- Left unable Tandem Tandem Standing 7 Blanchard Balance Assessment Evaluation Sitting to Standing Ability Independent w/out Hands Unsupported Stance Safely- 2 minutes Sitting Unsupported, Feet on Floor Safely- 2 minutes Standing to Sitting Ability Safely, Minimal Hand Use Transfer Ability Safely, Minimal Hand Use Unsupported Stance- Eyes Closed Supervision, 10 seconds Unsupported Stance- Eyes Open Independent, 1 minute Reaching Forward Standing Confidently, 10 inches Look Behind Shoulder - Standing Turns Sideways Only Turning 360 Degrees Turns slowly, but safely Unsupported Stance, Alternating Feet on (I)- 8 Steps in > 20 secs Stair Unsupported Tandem Stance Balance Lost- Step/Stand Unilateral Leg Stance Lifts Leg/Unable to Hold Total Score Blanhcard Total Score (out of 56 points) 39 Blanchard Impairment Rating 20 to 39% Impaired (Score 34- 44) PT-OP-E Functional Tests Start: 03/10/23 10:34 Freq: Status: Active Protocol: Document 03/10/23 10:35 AM (Rec: 03/10/23 12:55 AM [id number]) Functional Tests 30 Second Sit to Stand Test Score 7 Comments hi-low table at 20 in PT-OP-G Mobility & Gait Start: 03/10/23 10:34 Freq: Status: Active Protocol: Document 03/10/23 10:35 AM (Rec: 03/10/23 12:55 AM [id number]) OP Gait Assessment Gait Gait Assistance Required: Independent Assistive Devices Assistive Device None Comments Gait Comments femoral MR during gait PT-OP-M Strength Start: 09/14/23 10:34 Freq: Status: Active Protocol: Document 03/10/23 10:35 AM (Rec: 03/10/23 12:55 AM [id number]) Hip Strength Hip Manual Muscle Testing Left Flexion (L2) 4- Good- Extension (S1) 4- Good- Abduction 4- Good- Adduction 4- Good- Right Flexion (L2) 4- Good- Extension (S1) 4- Good- Abduction 4- Good- Adduction 4- Good- Knee Strength Knee Manual Muscle Testing Left Flexion (S2) 3+ Fair+ Extension (L3) 4- Good- Right Flexion (S2) 3+ Fair+ Extension (L3) 4- Good- PT-OP-Q Treatments Start: 03/10/23 10:34 Freq: Status: Active Protocol: Document 03/10/23 10:35 AM (Rec: 03/10/23 12:55 AM [id number]) Therapeutic Exercises Standing Exercises Calf raise Standing Exercise Name Standing calf raise Side bilateral Equipment Used counter Hip abduction Standing Exercise Name Standing hip abduction Side bilateral Equipment Used counter Reps/Minutes x10 ea Chair squat Standing Exercise Name Chair squat Equipment Used hi-low table 20 inches high Reps/Minutes x10 PT-OP-T Assessment and Plan Start: 03/10/23 10:34 Freq: Status: Active Protocol: Document 03/10/23 10:35 AM (Rec: 03/10/23 12:55 AM [id number]) Physical Therapy Assessment Rehab Potential Rehabilitation Potential Excellent Evaluation Complexity Number of Personal Factors/Comorbidities 1-2 Number of Body Systems Impaired 1-2 Clinical Presentation at Evaluation Stable Impairments Impairments Activity Tolerance,Balance, Coordination,Functional Activities,Functional Mobility ,Gait,Posture,ROM,Strength Goals Tandem Impairment Balance Impairment Pt able to internet site designer supported tandem for 7 seconds. Short Term Goal (STG) Pt able to internet site designer unsupported tandem stance fo 15 seconds. STG Duration 03/31/23 Enginehouse Brakeman Goal (LTG) Pt able to internet site designer unsupported tandem for 25 seconds. LTG Duration 04/21/23 Balance Impairment Blanchard balance Impairment Pt with score of 39/56 on Blanchard balance. Short Term Goal (STG) Pt with 43/56 score on Blanchard Balance STG Duration 03/31/23 Retirement Goal (LTG) Pt with score of >46/56 on Blanchard balance. LTG Duration 04/21/23 30 sec STS squat Impairment Strength Impairment Pt able to complete 7 STS squats at hi-low table at 20 in height. Short Term Goal (STG) Pt able to complete 10 STS squats at surface at 20 in height. STG Duration 03/31/23 Enginehouse Brakeman Goal (LTG) Pt able to complete 13 STS squtas at hi-low table at height of 20 in. LTG Duration 04/21/23 Strength Impairment Strength Impairment Pt with gross LE strength of 4 -/5/ Short Term Goal (STG) Pt with gross LE strength of 4 /5. STG Duration 03/31/23 Enginehouse Brakeman Goal (LTG) Pt with gross LE strength of 4 +/5 LTG Duration 04/21/23 Assessment Summary Assessment Callie Berkowitz presents to PT to address balance impairments and falls. Pt reports 6 month hx of impaired balance, though reports worsening following recent TIA. Pt demonstrates fall risk with Blanchard balance score of 39/56. Pt discussed use of AD, particularly with community ambulation and on uneven surfaces to decrease fall risk. Pt demonstrates weakness at LE with reported glute fatigue with standing abduction. Pt demonstrates femoral MR during gait. Pt would benefit from continued PT to improve balance and strength to decrease fall risk and improve tolerance to functional tasks. Physical Therapy Plan Frequency and Duration Frequency of Treatment 2x/Week Duration of treatment (weeks) 6 Plan of Care Start Date 03/10/23 Plan of Care End Date 04/21/23 Therapeutic Interventions Therapeutic Interventions Balance Training,Coordination Training,Gait Training,Home Exercise Program,Joint Mobilizations,Manual Therapy, Neuromuscular Re-education, Patient/Caregiver Education, Self-Care/Home Management,Soft Tissue Mobilization,Taping, Therapeutic Activities, Therapeutic Exercises Modalities Cold Pack/Ice Massage,Electric Stimulation,Hot Packs, Ultrasound Next Visit Focus/Plan Next Note Type Treatment Note Next Visit Plan Progress LE strength and balance as appropriate
--- NOTE | 2023-03-10 10:35 | PT.OPPOC ---
Physical, Occupational & Speech Therapy At [facility] 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/23) Visit Care Team Role Provider Type Mara Carter MD Attending Provider Physician Family Provider Primary Care Provider Referring Provider Specialty: Family Practice Address: [address] [place] [address], [id number] Email: [email or web address] Plan Of Care PT-OP-T Assessment and Plan Start: 03/10/23 10:34 Freq: Status: Active Protocol: Document 03/10/23 10:35 AM (Rec: 03/10/23 12:55 AM [id number]) Physical Therapy Assessment Rehab Potential Rehabilitation Potential Excellent Evaluation Complexity Number of Personal Factors/Comorbidities 1-2 Number of Body Systems Impaired 1-2 Clinical Presentation at Evaluation Stable Impairments Impairments Activity Tolerance,Balance, Coordination,Functional Activities,Functional Mobility ,Gait,Posture,ROM,Strength Goals Tandem Impairment Balance Impairment Pt able to lighting equipment operator supported tandem for 7 seconds. Short Term Goal (STG) Pt able to lighting equipment operator unsupported tandem stance fo 15 seconds. STG Duration 03/31/23 Fpc Goal (LTG) Pt able to lighting equipment operator unsupported tandem for 25 seconds. LTG Duration 04/21/23 Balance Impairment Blanchard balance Impairment Pt with score of 39/56 on Blanchard balance. Short Term Goal (STG) Pt with 43/56 score on Blanchard Balance STG Duration 03/31/23 Roof Bolter Helper Goal (LTG) Pt with score of >46/56 on Blanchard balance. LTG Duration 04/21/23 30 sec STS squat Impairment Strength Impairment Pt able to complete 7 STS squats at hi-low table at 20 in height. Short Term Goal (STG) Pt able to complete 10 STS squats at surface at 20 in height. STG Duration 03/31/23 Fpc Goal (LTG) Pt able to complete 13 STS squtas at hi-low table at height of 20 in. LTG Duration 04/21/23 Strength Impairment Strength Impairment Pt with gross LE strength of 4 -/5/ Short Term Goal (STG) Pt with gross LE strength of 4 /5. STG Duration 03/31/23 Roof Bolter Helper Goal (LTG) Pt with gross LE strength of 4 +/5 LTG Duration 04/21/23 Assessment Summary Assessment Callie Berkowitz presents to PT to address balance impairments and falls. Pt reports 6 month hx of impaired balance, though reports worsening following recent TIA. Pt demonstrates fall risk with Blanchard balance score of 39/56. Pt discussed use of AD, particularly with community ambulation and on uneven surfaces to decrease fall risk. Pt demonstrates weakness at LE with reported glute fatigue with standing abduction. Pt demonstrates femoral MR during gait. Pt would benefit from continued PT to improve balance and strength to decrease fall risk and improve tolerance to functional tasks. Physical Therapy Plan Frequency and Duration Frequency of Treatment 2x/Week Duration of treatment (weeks) 6 Plan of Care Start Date 03/10/23 Plan of Care End Date 04/21/23 Therapeutic Interventions Therapeutic Interventions Balance Training,Coordination Training,Gait Training,Home Exercise Program,Joint Mobilizations,Manual Therapy, Neuromuscular Re-education, Patient/Caregiver Education, Self-Care/Home Management,Soft Tissue Mobilization,Taping, Therapeutic Activities, Therapeutic Exercises Modalities Cold Pack/Ice Massage,Electric Stimulation,Hot Packs, Ultrasound Next Visit Focus/Plan Next Note Type Treatment Note Next Visit Plan Progress LE strength and balance as appropriate Plan of Care Dates Plan of Care Start Date 03/10/23 Plan of Care End Date 04/21/23 Electronically Signed by: Leeanne Molina, PT 03/10/23 1257 If you are in agreement with this Plan of Care, please return a signed and dated copy. I have reviewed this Plan of Care and certify that the skilled therapy services above are required to meet the patient?s needs. Physician Signature Date Printed Name and Credentials Clinical Instructor Signature Printed Name and Credentials
--- NOTE | 2023-03-14 10:39 | PT.OTN ---
Current Diagnoses Unspecified sequelae of cerebral infarction (03/14/23) Physical Therapy Treatment Note PT-OP-A Visit Information Start: 03/10/23 10:34 Freq: Status: Active Protocol: Document 03/14/23 10:39 AM (Rec: 03/14/23 11:26 AM [id number]) Out-Patient Physical Therapy Visit Information Visit Information Visit Type Treatment Note Visit Start Time 10:39 Visit Stop Time 11:21 Total Visit Minutes 42 Visit Number 2 Number of TRANSPORTATION SECURITY OFFICER Visits 0 PT-OP-B Current Condition Start: 03/10/23 10:34 Freq: Status: Active Protocol: Document 03/14/23 10:39 AM (Rec: 03/14/23 11:26 AM [id number]) Current Condition History of Current Condition Onset Date 02/08/23 Current Complaints Balance, falls History of Current Condition Pt reports that she has had 2 recent TIA's on February 08. Pt reports that she has had TIA's in the past and her brain MRI showed prior stroke. She went to the ER and they did not admit her at that time . Pt reports that she has been having issues with her balance for 6+ months prior to recent TIA. Pt also has macular degeneration and reports difficulty seeing in the dark. Pt reports that she had a fall and hit her head. Pt reports frequent falls. Pt reports difficulty with ascending/descending stairs. Pt reports difficulty with walking on uneven terrain. Pt reports that she has had 2-3 falls in the last few months. Pt reports getting in and out of tub is difficult. She thinks she might need a shower chair. Pt reports that she does not use an AD, though will often hang on to her when ambulating in the community. Prior Treatments and Tests Brain MRI Future Testing and Treatments Planned Neurologist PT-OP-C Subjective Start: 03/10/23 10:34 Freq: Status: Active Protocol: Document 03/14/23 10:39 AM (Rec: 03/14/23 11:26 AM [id number]) OP-PT Subjective Patient Comments Patient Comments Pt reports that she had an episode of dizziness yesterday . Pt reports that she had increased ringing in her ears at that time as well. PT-OP-D Balance Start: 03/10/23 10:34 Freq: Status: Active Protocol: Document 03/10/23 10:35 AM (Rec: 03/10/23 12:55 AM [id number]) Balance Tests Single Limb Standing Single Limb- Right unable Single Limb- Left unable Tandem Tandem Standing 7 Blanchard Balance Assessment Evaluation Sitting to Standing Ability Independent w/out Hands Unsupported Stance Safely- 2 minutes Sitting Unsupported, Feet on Floor Safely- 2 minutes Standing to Sitting Ability Safely, Minimal Hand Use Transfer Ability Safely, Minimal Hand Use Unsupported Stance- Eyes Closed Supervision, 10 seconds Unsupported Stance- Eyes Open Independent, 1 minute Reaching Forward Standing Confidently, 10 inches Look Behind Shoulder - Standing Turns Sideways Only Turning 360 Degrees Turns slowly, but safely Unsupported Stance, Alternating Feet on (I)- 8 Steps in > 20 secs Stair Unsupported Tandem Stance Balance Lost- Step/Stand Unilateral Leg Stance Lifts Leg/Unable to Hold Total Score Blanchard Total Score (out of 56 points) 39 Blanchard Impairment Rating 20 to 39% Impaired (Score 34- 44) PT-OP-E Functional Tests Start: 03/10/23 10:34 Freq: Status: Active Protocol: Document 03/10/23 10:35 AM (Rec: 03/10/23 12:55 AM [id number]) Functional Tests 30 Second Sit to Stand Test Score 7 Comments hi-low table at 20 in PT-OP-G Mobility & Gait Start: 03/10/23 10:34 Freq: Status: Active Protocol: Document 03/10/23 10:35 AM (Rec: 03/10/23 12:55 AM [id number]) OP Gait Assessment Gait Gait Assistance Required: Independent Assistive Devices Assistive Device None Comments Gait Comments femoral MR during gait PT-OP-M Strength Start: 03/10/23 10:34 Freq: Status: Active Protocol: Document 03/10/23 10:35 AM (Rec: 03/10/23 12:55 AM [id number]) Hip Strength Hip Manual Muscle Testing Left Flexion (L2) 4- Good- Extension (S1) 4- Good- Abduction 4- Good- Adduction 4- Good- Right Flexion (L2) 4- Good- Extension (S1) 4- Good- Abduction 4- Good- Adduction 4- Good- Knee Strength Knee Manual Muscle Testing Left Flexion (S2) 3+ Fair+ Extension (L3) 4- Good- Right Flexion (S2) 3+ Fair+ Extension (L3) 4- Good- PT-OP-Q Treatments Start: 03/10/23 10:34 Freq: Status: Active Protocol: Document 03/14/23 10:39 AM (Rec: 03/14/23 11:26 AM [id number]) Cardio Equipment Recumbent Stepper (Sci-Fit) Duration (Minutes) 6 Resistance 2.5 Seat Position 8 Therapeutic Exercises Standing Exercises hip extension Side bilateral Equipment Used railing Reps/Minutes 2x10 Calf raise Standing Exercise Name Standing calf raise Side bilateral Equipment Used railing Reps/Minutes 2x10 Hip abduction Standing Exercise Name Standing hip abduction Side bilateral Equipment Used railing Reps/Minutes 2x10 Neuro Re-Education Treatment Balance Activities Wobble board Details fwd/back Surface wooden wobble board Reps/Duration x1 min NBOS Details NBOS Surface big balance disc Equipment // bars, balance disc Reps/Duration x1 min Tandem stance Equipment // bars Reps/Duration x30 sec ea semi tandem Details with and without head turns, EC Surface even and uneven surface Equipment // bars, blue foam Reps/Duration x45 sec ea PT-OP-T Assessment and Plan Start: 03/10/23 10:34 Freq: Status: Active Protocol: Document 03/14/23 10:39 AM (Rec: 03/14/23 11:26 AM [id number]) Physical Therapy Assessment Impairments Impairments Activity Tolerance,Balance, Coordination,Functional Activities,Functional Mobility ,Gait,Posture,ROM,Strength Goals Tandem Impairment Balance Impairment Pt able to stamping die maker supported tandem for 7 seconds. Short Term Goal (STG) Pt able to stamping die maker unsupported tandem stance fo 15 seconds. STG Duration 03/31/23 Disbursing Agent Goal (LTG) Pt able to stamping die maker unsupported tandem for 25 seconds. LTG Duration 04/21/23 Balance Impairment Blanchard balance Impairment Pt with score of 39/56 on Blanchard balance. Short Term Goal (STG) Pt with 43/56 score on Blanchard Balance STG Duration 03/31/23 Penitentiary Goal (LTG) Pt with score of >46/56 on Blanchard balance. LTG Duration 04/21/23 30 sec STS squat Impairment Strength Impairment Pt able to complete 7 STS squats at hi-low table at 20 in height. Short Term Goal (STG) Pt able to complete 10 STS squats at surface at 20 in height. STG Duration 03/31/23 Disbursing Agent Goal (LTG) Pt able to complete 13 STS squtas at hi-low table at height of 20 in. LTG Duration 04/21/23 Strength Impairment Strength Impairment Pt with gross LE strength of 4 -/5/ Short Term Goal (STG) Pt with gross LE strength of 4 /5. STG Duration 03/31/23 Penitentiary Goal (LTG) Pt with gross LE strength of 4 +/5 LTG Duration 04/21/23 Assessment Summary Assessment Pt demonstrated reported fatigue of L LE with exercises today. Pt with reported fear of falling forward with balance exercises. Pt required rest breaks during tx session today. Pt would benefit from continued PT to progress balance and LE strength to decrease fall risk and improve tolerance to functional tasks . Physical Therapy Plan Frequency and Duration Frequency of Treatment 2x/Week Duration of treatment (weeks) 6 Plan of Care Start Date 03/10/23 Plan of Care End Date 04/21/23 Therapeutic Interventions Therapeutic Interventions Balance Training,Coordination Training,Gait Training,Home Exercise Program,Joint Mobilizations,Manual Therapy, Neuromuscular Re-education, Patient/Caregiver Education, Self-Care/Home Management,Soft Tissue Mobilization,Taping, Therapeutic Activities, Therapeutic Exercises Modalities Cold Pack/Ice Massage,Electric Stimulation,Hot Packs, Ultrasound Next Visit Focus/Plan Next Note Type Treatment Note Next Visit Plan Progress LE strength and balance as appropriate
--- NOTE | 2023-03-17 16:06 | PT.OTN ---
Current Diagnoses Unspecified sequelae of cerebral infarction (03/17/23) Physical Therapy Treatment Note PT-OP-A Visit Information Start: 03/10/23 10:34 Freq: Status: Active Protocol: Document 03/17/23 14:43 SW (Rec: 03/17/23 16:06 [id number]) Out-Patient Physical Therapy Visit Information Visit Information Visit Type Treatment Note Visit Start Time 14:47 Visit Stop Time 15:30 Total Visit Minutes 43 Visit Number 3 Number of DETECTIVE NARCOTICS AND VICE Visits 1 PT-OP-B Current Condition Start: 03/10/23 10:34 Freq: Status: Active Protocol: Document 03/14/23 10:39 AM (Rec: 03/14/23 11:26 AM [id number]) Current Condition History of Current Condition Onset Date 02/08/23 Current Complaints Balance, falls History of Current Condition Pt reports that she has had 2 recent TIA's on February 08. Pt reports that she has had TIA's in the past and her brain MRI showed prior stroke. She went to the ER and they did not admit her at that time . Pt reports that she has been having issues with her balance for 6+ months prior to recent TIA. Pt also has macular degeneration and reports difficulty seeing in the dark. Pt reports that she had a fall and hit her head. Pt reports frequent falls. Pt reports difficulty with ascending/descending stairs. Pt reports difficulty with walking on uneven terrain. Pt reports that she has had 2-3 falls in the last few months. Pt reports getting in and out of tub is difficult. She thinks she might need a shower chair. Pt reports that she does not use an AD, though will often hang on to her when ambulating in the community. Prior Treatments and Tests Brain MRI Future Testing and Treatments Planned Neurologist PT-OP-C Subjective Start: 03/10/23 10:34 Freq: Status: Active Protocol: Document 03/17/23 14:43 SW (Rec: 03/17/23 16:06 [id number]) OP-PT Subjective Patient Comments Patient Comments Pt reports no dizziness, since last episode. Pt felt ok with exercises last session. Pt expressed interest in getting a SPC for stair ambulation. PT-OP-D Balance Start: 03/10/23 10:34 Freq: Status: Active Protocol: Document 03/10/23 10:35 AM (Rec: 03/10/23 12:55 AM [id number]) Balance Tests Single Limb Standing Single Limb- Right unable Single Limb- Left unable Tandem Tandem Standing 7 Blanchard Balance Assessment Evaluation Sitting to Standing Ability Independent w/out Hands Unsupported Stance Safely- 2 minutes Sitting Unsupported, Feet on Floor Safely- 2 minutes Standing to Sitting Ability Safely, Minimal Hand Use Transfer Ability Safely, Minimal Hand Use Unsupported Stance- Eyes Closed Supervision, 10 seconds Unsupported Stance- Eyes Open Independent, 1 minute Reaching Forward Standing Confidently, 10 inches Look Behind Shoulder - Standing Turns Sideways Only Turning 360 Degrees Turns slowly, but safely Unsupported Stance, Alternating Feet on (I)- 8 Steps in > 20 secs Stair Unsupported Tandem Stance Balance Lost- Step/Stand Unilateral Leg Stance Lifts Leg/Unable to Hold Total Score Blanchard Total Score (out of 56 points) 39 Blanchard Impairment Rating 20 to 39% Impaired (Score 34- 44) PT-OP-E Functional Tests Start: 03/10/23 10:34 Freq: Status: Active Protocol: Document 03/10/23 10:35 AM (Rec: 03/10/23 12:55 AM [id number]) Functional Tests 30 Second Sit to Stand Test Score 7 Comments hi-low table at 20 in PT-OP-G Mobility & Gait Start: 03/10/23 10:34 Freq: Status: Active Protocol: Document 03/10/23 10:35 AM (Rec: 03/10/23 12:55 AM [id number]) OP Gait Assessment Gait Gait Assistance Required: Independent Assistive Devices Assistive Device None Comments Gait Comments femoral MR during gait PT-OP-M Strength Start: 03/10/23 10:34 Freq: Status: Active Protocol: Document 03/10/23 10:35 AM (Rec: 03/10/23 12:55 AM [id number]) Hip Strength Hip Manual Muscle Testing Left Flexion (L2) 4- Good- Extension (S1) 4- Good- Abduction 4- Good- Adduction 4- Good- Right Flexion (L2) 4- Good- Extension (S1) 4- Good- Abduction 4- Good- Adduction 4- Good- Knee Strength Knee Manual Muscle Testing Left Flexion (S2) 3+ Fair+ Extension (L3) 4- Good- Right Flexion (S2) 3+ Fair+ Extension (L3) 4- Good- PT-OP-Q Treatments Start: 03/10/23 10:34 Freq: Status: Active Protocol: Document 03/17/23 14:43 SW (Rec: 03/17/23 16:06 [id number]) Cardio Equipment Recumbent Stepper (Sci-Fit) Duration (Minutes) 7 Resistance 2.5 Seat Position 8 Gym Equipment Shuttle Recovery Bilateral Squats Resistance 37 # (old band) Shuttle Recovery Platform Stable Reps/Time 2 x 10 Shuttle Balance Blue Clips Details fwd/back- WBOS, NBOS, Tandem lateral- WBOS, NBOS Therapeutic Exercises Standing Exercises hip extension Side bilateral Equipment Used railing Reps/Minutes 2x10 Calf raise Standing Exercise Name Standing calf raise Side bilateral Equipment Used railing Reps/Minutes 2x10 Hip abduction Standing Exercise Name Standing hip abduction Side bilateral Equipment Used railing Reps/Minutes 2x10 Neuro Re-Education Treatment Balance Activities Tandem stance Equipment // bars Reps/Duration x30 sec ea Self-Care/Home Management Treatment Education Patient Education Home Exercise Program Other Education Tandem Balance- educated patient on safety with HEP balance ex. Discussed spc. PT-OP-T Assessment and Plan Start: 03/10/23 10:34 Freq: Status: Active Protocol: Document 03/17/23 14:43 SW (Rec: 03/17/23 16:06 [id number]) Physical Therapy Assessment Goals Tandem Impairment Balance Impairment Pt able to air intelligence officer supported tandem for 7 seconds. Short Term Goal (STG) Pt able to air intelligence officer unsupported tandem stance fo 15 seconds. STG Duration 03/31/23 Spa Associate Goal (LTG) Pt able to air intelligence officer unsupported tandem for 25 seconds. LTG Duration 04/21/23 Balance Impairment Blanchard balance Impairment Pt with score of 39/56 on Blanchard balance. Short Term Goal (STG) Pt with 43/56 score on Blanchard Balance STG Duration 03/31/23 Spa Associate Goal (LTG) Pt with score of >46/56 on Blanchard balance. LTG Duration 04/21/23 30 sec STS squat Impairment Strength Impairment Pt able to complete 7 STS squats at hi-low table at 20 in height. Short Term Goal (STG) Pt able to complete 10 STS squats at surface at 20 in height. STG Duration 03/31/23 Spa Associate Goal (LTG) Pt able to complete 13 STS squtas at hi-low table at height of 20 in. LTG Duration 04/21/23 Strength Impairment Strength Impairment Pt with gross LE strength of 4 -/5/ Short Term Goal (STG) Pt with gross LE strength of 4 /5. STG Duration 03/31/23 Chcf Goal (LTG) Pt with gross LE strength of 4 +/5 LTG Duration 04/21/23 Assessment Summary Assessment Pt challenged with addition of shuttle balance. Reviewed tandem balance on stable surface, issued HEP and educated patient on safety. Progressed strengthening with addition of shuttle recovery, plan to follow up on patient tolerance next session. Pt may benefit from gait training w/AD prn for safety and stability during activities such as her grandchild's sports event with many stairs, plan to discuss w/PT. Physical Therapy Plan Frequency and Duration Frequency of Treatment 2x/Week Duration of treatment (weeks) 6 Plan of Care Start Date 03/10/23 Plan of Care End Date 04/21/23 Therapeutic Interventions Therapeutic Interventions Balance Training,Coordination Training,Gait Training,Home Exercise Program,Joint Mobilizations,Manual Therapy, Neuromuscular Re-education, Patient/Caregiver Education, Self-Care/Home Management,Soft Tissue Mobilization,Taping, Therapeutic Activities, Therapeutic Exercises Modalities Cold Pack/Ice Massage,Electric Stimulation,Hot Packs, Ultrasound Next Visit Focus/Plan Next Note Type Treatment Note Next Visit Plan Progress LE strength and balance as appropriate POC: SPC stair ambulation, discuss w/ PT
--- NOTE | 2023-03-22 10:36 | PT.OTN ---
Current Diagnoses Unspecified sequelae of cerebral infarction (03/22/23) Physical Therapy Treatment Note PT-OP-A Visit Information Start: 03/10/23 10:34 Freq: Status: Active Protocol: Document 03/22/23 10:36 AM (Rec: 03/22/23 11:29 AM [id number]) Out-Patient Physical Therapy Visit Information Visit Information Visit Type Treatment Note Visit Start Time 10:36 Visit Stop Time 11:17 Total Visit Minutes 41 Visit Number 4 Number of COFFEE BAR ATTENDANT Visits 1 PT-OP-B Current Condition Start: 03/10/23 10:34 Freq: Status: Active Protocol: Document 03/22/23 10:36 AM (Rec: 03/22/23 11:29 AM [id number]) Current Condition History of Current Condition Onset Date 02/08/23 Current Complaints Balance, falls History of Current Condition Pt reports that she has had 2 recent TIA's on February 08. Pt reports that she has had TIA's in the past and her brain MRI showed prior stroke. She went to the ER and they did not admit her at that time . Pt reports that she has been having issues with her balance for 6+ months prior to recent TIA. Pt also has macular degeneration and reports difficulty seeing in the dark. Pt reports that she had a fall and hit her head. Pt reports frequent falls. Pt reports difficulty with ascending/descending stairs. Pt reports difficulty with walking on uneven terrain. Pt reports that she has had 2-3 falls in the last few months. Pt reports getting in and out of tub is difficult. She thinks she might need a shower chair. Pt reports that she does not use an AD, though will often hang on to her when ambulating in the community. Prior Treatments and Tests Brain MRI Future Testing and Treatments Planned Neurologist PT-OP-C Subjective Start: 03/10/23 10:34 Freq: Status: Active Protocol: Document 03/22/23 10:36 AM (Rec: 03/22/23 11:29 AM [id number]) OP-PT Subjective Patient Comments Patient Comments Pt denies dizziness. Pt denies soreness after last session. PT-OP-D Balance Start: 03/10/23 10:34 Freq: Status: Active Protocol: Document 03/10/23 10:35 AM (Rec: 03/10/23 12:55 AM [id number]) Balance Tests Single Limb Standing Single Limb- Right unable Single Limb- Left unable Tandem Tandem Standing 7 Blanchard Balance Assessment Evaluation Sitting to Standing Ability Independent w/out Hands Unsupported Stance Safely- 2 minutes Sitting Unsupported, Feet on Floor Safely- 2 minutes Standing to Sitting Ability Safely, Minimal Hand Use Transfer Ability Safely, Minimal Hand Use Unsupported Stance- Eyes Closed Supervision, 10 seconds Unsupported Stance- Eyes Open Independent, 1 minute Reaching Forward Standing Confidently, 10 inches Look Behind Shoulder - Standing Turns Sideways Only Turning 360 Degrees Turns slowly, but safely Unsupported Stance, Alternating Feet on (I)- 8 Steps in > 20 secs Stair Unsupported Tandem Stance Balance Lost- Step/Stand Unilateral Leg Stance Lifts Leg/Unable to Hold Total Score Blanchard Total Score (out of 56 points) 39 Blanchard Impairment Rating 20 to 39% Impaired (Score 34- 44) PT-OP-E Functional Tests Start: 03/10/23 10:34 Freq: Status: Active Protocol: Document 03/10/23 10:35 AM (Rec: 03/10/23 12:55 AM [id number]) Functional Tests 30 Second Sit to Stand Test Score 7 Comments hi-low table at 20 in PT-OP-G Mobility & Gait Start: 03/10/23 10:34 Freq: Status: Active Protocol: Document 03/10/23 10:35 AM (Rec: 03/10/23 12:55 AM [id number]) OP Gait Assessment Gait Gait Assistance Required: Independent Assistive Devices Assistive Device None Comments Gait Comments femoral MR during gait PT-OP-M Strength Start: 03/10/23 10:34 Freq: Status: Active Protocol: Document 03/10/23 10:35 AM (Rec: 03/10/23 12:55 AM [id number]) Hip Strength Hip Manual Muscle Testing Left Flexion (L2) 4- Good- Extension (S1) 4- Good- Abduction 4- Good- Adduction 4- Good- Right Flexion (L2) 4- Good- Extension (S1) 4- Good- Abduction 4- Good- Adduction 4- Good- Knee Strength Knee Manual Muscle Testing Left Flexion (S2) 3+ Fair+ Extension (L3) 4- Good- Right Flexion (S2) 3+ Fair+ Extension (L3) 4- Good- PT-OP-Q Treatments Start: 03/10/23 10:34 Freq: Status: Active Protocol: Document 03/22/23 10:36 AM (Rec: 03/22/23 11:29 AM [id number]) Cardio Equipment Recumbent Stepper (Sci-Fit) Duration (Minutes) 6 Resistance 2.5 Seat Position 8 Gym Equipment Shuttle Recovery Bilateral Squats Resistance 37 # (old band) Shuttle Recovery Platform Stable Reps/Time 2x1 min Shuttle Balance Blue Clips Details fwd/back- WBOS, NBOS, Tandem lateral- WBOS, NBOS Therapeutic Exercises Standing Exercises Standing hip flexion Standing Exercise Name Standing hip flexion Side bilateral Resistance teal TB Equipment Used // bars Reps/Minutes x10 hip extension Side bilateral Resistance teal TB Equipment Used // bars Reps/Minutes x10 Calf raise Standing Exercise Name Standing calf raise Side bilateral Equipment Used railing Reps/Minutes 2x10 Hip abduction Standing Exercise Name Standing hip abduction Side bilateral Resistance Teal TB Equipment Used railing Reps/Minutes x10 Neuro Re-Education Treatment Balance Activities Tandem walking Details Tandem walking Equipment // bars Hurdles Details Stepping over hurdles Equipment hurdles, // bars Comments Fwd and sideways Tandem stance Equipment // bars Reps/Duration x30 sec ea semi tandem Details with and without head turns, EC Surface even Equipment // bars Reps/Duration 2x30 sec ea PT-OP-T Assessment and Plan Start: 03/10/23 10:34 Freq: Status: Active Protocol: Document 03/22/23 10:36 AM (Rec: 03/22/23 11:29 AM [id number]) Physical Therapy Assessment Impairments Impairments Activity Tolerance,Balance, Coordination,Functional Activities,Functional Mobility ,Gait,Posture,ROM,Strength Goals Tandem Impairment Balance Impairment Pt able to standards analyst supported tandem for 7 seconds. Short Term Goal (STG) Pt able to standards analyst unsupported tandem stance fo 15 seconds. STG Duration 03/31/23 Pantograph Machine Operator Goal (LTG) Pt able to standards analyst unsupported tandem for 25 seconds. LTG Duration 04/21/23 Balance Impairment Blanchard balance Impairment Pt with score of 39/56 on Blanchard balance. Short Term Goal (STG) Pt with 43/56 score on Blanchard Balance STG Duration 03/31/23 Pantograph Machine Operator Goal (LTG) Pt with score of >46/56 on Blanchard balance. LTG Duration 04/21/23 30 sec STS squat Impairment Strength Impairment Pt able to complete 7 STS squats at hi-low table at 20 in height. Short Term Goal (STG) Pt able to complete 10 STS squats at surface at 20 in height. STG Duration 03/31/23 Assisted Goal (LTG) Pt able to complete 13 STS squtas at hi-low table at height of 20 in. LTG Duration 04/21/23 Strength Impairment Strength Impairment Pt with gross LE strength of 4 -/5/ Short Term Goal (STG) Pt with gross LE strength of 4 /5. STG Duration 03/31/23 Pantograph Machine Operator Goal (LTG) Pt with gross LE strength of 4 +/5 LTG Duration 04/21/23 Assessment Summary Assessment Pt tolerated PRE well today, though demonstrated reported fatigue with exercises. Pt with difficulty with balance challenges, requiring cueing for breathing. Pt required occasional use of hands to prevent LOB in // bars. Pt will return to PT later this week to continue to progress balance and strength to decrease fall risk. Physical Therapy Plan Frequency and Duration Frequency of Treatment 2x/Week Duration of treatment (weeks) 6 Plan of Care Start Date 03/10/23 Plan of Care End Date 04/21/23 Therapeutic Interventions Therapeutic Interventions Balance Training,Coordination Training,Gait Training,Home Exercise Program,Joint Mobilizations,Manual Therapy, Neuromuscular Re-education, Patient/Caregiver Education, Self-Care/Home Management,Soft Tissue Mobilization,Taping, Therapeutic Activities, Therapeutic Exercises Modalities Cold Pack/Ice Massage,Electric Stimulation,Hot Packs, Ultrasound Next Visit Focus/Plan Next Note Type Treatment Note Next Visit Plan Progress LE strength and balance as appropriate POC: SPC stair ambulation, discuss w/ PT
--- NOTE | 2023-03-24 17:03 | PT.OTN ---
Current Diagnoses Unspecified sequelae of cerebral infarction (03/24/23) Physical Therapy Treatment Note PT-OP-A Visit Information Start: 03/10/23 10:34 Freq: Status: Active Protocol: Document 03/24/23 14:43 SW (Rec: 03/24/23 17:02 [id number]) Out-Patient Physical Therapy Visit Information Visit Information Visit Type Treatment Note Visit Start Time 14:45 Visit Stop Time 15:30 Total Visit Minutes 45 Visit Number 5 Number of SLAG PRODUCTION WORKER Visits 1 PT-OP-B Current Condition Start: 03/10/23 10:34 Freq: Status: Active Protocol: Document 03/22/23 10:36 AM (Rec: 03/22/23 11:29 AM [id number]) Current Condition History of Current Condition Onset Date 02/08/23 Current Complaints Balance, falls History of Current Condition Pt reports that she has had 2 recent TIA's on February 08. Pt reports that she has had TIA's in the past and her brain MRI showed prior stroke. She went to the ER and they did not admit her at that time . Pt reports that she has been having issues with her balance for 6+ months prior to recent TIA. Pt also has macular degeneration and reports difficulty seeing in the dark. Pt reports that she had a fall and hit her head. Pt reports frequent falls. Pt reports difficulty with ascending/descending stairs. Pt reports difficulty with walking on uneven terrain. Pt reports that she has had 2-3 falls in the last few months. Pt reports getting in and out of tub is difficult. She thinks she might need a shower chair. Pt reports that she does not use an AD, though will often hang on to her when ambulating in the community. 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 PT-OP-D Balance Start: 03/10/23 10:34 Freq: Status: Active Protocol: Document 03/10/23 10:35 AM (Rec: 03/10/23 12:55 AM [id number]) Balance Tests Single Limb Standing Single Limb- Right unable Single Limb- Left unable Tandem Tandem Standing 7 Blanchard Balance Assessment Evaluation Sitting to Standing Ability Independent w/out Hands Unsupported Stance Safely- 2 minutes Sitting Unsupported, Feet on Floor Safely- 2 minutes Standing to Sitting Ability Safely, Minimal Hand Use Transfer Ability Safely, Minimal Hand Use Unsupported Stance- Eyes Closed Supervision, 10 seconds Unsupported Stance- Eyes Open Independent, 1 minute Reaching Forward Standing Confidently, 10 inches Look Behind Shoulder - Standing Turns Sideways Only Turning 360 Degrees Turns slowly, but safely Unsupported Stance, Alternating Feet on (I)- 8 Steps in > 20 secs Stair Unsupported Tandem Stance Balance Lost- Step/Stand Unilateral Leg Stance Lifts Leg/Unable to Hold Total Score Blanchard Total Score (out of 56 points) 39 Blanchard Impairment Rating 20 to 39% Impaired (Score 34- 44) PT-OP-E Functional Tests Start: 03/10/23 10:34 Freq: Status: Active Protocol: Document 03/10/23 10:35 AM (Rec: 03/10/23 12:55 AM [id number]) Functional Tests 30 Second Sit to Stand Test Score 7 Comments hi-low table at 20 in PT-OP-G Mobility & Gait Start: 03/10/23 10:34 Freq: Status: Active Protocol: Document 03/10/23 10:35 AM (Rec: 03/10/23 12:55 AM [id number]) OP Gait Assessment Gait Gait Assistance Required: Independent Assistive Devices Assistive Device None Comments Gait Comments femoral MR during gait PT-OP-M Strength Start: 03/10/23 10:34 Freq: Status: Active Protocol: Document 03/10/23 10:35 AM (Rec: 03/10/23 12:55 AM [id number]) Hip Strength Hip Manual Muscle Testing Left Flexion (L2) 4- Good- Extension (S1) 4- Good- Abduction 4- Good- Adduction 4- Good- Right Flexion (L2) 4- Good- Extension (S1) 4- Good- Abduction 4- Good- Adduction 4- Good- Knee Strength Knee Manual Muscle Testing Left Flexion (S2) 3+ Fair+ Extension (L3) 4- Good- Right Flexion (S2) 3+ Fair+ Extension (L3) 4- Good- PT-OP-Q Treatments Start: 03/10/23 10:34 Freq: Status: Active Protocol: Document 03/24/23 14:43 SW (Rec: 03/24/23 17:02 [id number]) Cardio Equipment Recumbent Stepper (Sci-Fit) Duration (Minutes) 7 Resistance 2.5 Seat Position 8 Gym Equipment Shuttle Recovery Bilateral Squats Resistance 37 # (navy band) Shuttle Recovery Platform Stable Reps/Time 2x1 min Shuttle Balance Red Clip Details WBOS Blue Clips Details fwd/back- WBOS, NBOS, Tandem lateral- WBOS, NBOS Sport Cord Red Exercise Details Fwd/back Green Exercise Details Fwd/back Reps/Duration x5 ea Therapeutic Exercises Standing Exercises Standing hip flexion Standing Exercise Name Standing hip flexion Side bilateral Resistance teal TB Equipment Used // bars Reps/Minutes x10 hip extension Side bilateral Resistance teal TB (latex) Equipment Used // bars Reps/Minutes x10 Calf raise Standing Exercise Name Standing calf raise Side bilateral Equipment Used railing Reps/Minutes 2x10 Hip abduction Standing Exercise Name Standing hip abduction Side bilateral Resistance Teal TB (latex) Equipment Used railing Reps/Minutes x10 Neuro Re-Education Treatment Balance Activities Tandem walking Details Tandem walking Equipment // bars Hurdles Details Stepping over hurdles Equipment hurdles, // bars Comments Fwd and sideways PT-OP-T Assessment and Plan Start: 03/10/23 10:34 Freq: Status: Active Protocol: Document 03/24/23 14:43 SW (Rec: 03/24/23 17:02 [id number]) Physical Therapy Assessment Goals Tandem Impairment Balance Impairment Pt able to machine grinder supported tandem for 7 seconds. Short Term Goal (STG) Pt able to machine grinder unsupported tandem stance fo 15 seconds. STG Duration 03/31/23 Color Strainer Goal (LTG) Pt able to machine grinder unsupported tandem for 25 seconds. LTG Duration 04/21/23 Balance Impairment Blanchard balance Impairment Pt with score of 39/56 on Blanchard balance. Short Term Goal (STG) Pt with 43/56 score on Blanchard Balance STG Duration 03/31/23 Color Strainer Goal (LTG) Pt with score of >46/56 on Blanchard balance. LTG Duration 04/21/23 30 sec STS squat Impairment Strength Impairment Pt able to complete 7 STS squats at hi-low table at 20 in height. Short Term Goal (STG) Pt able to complete 10 STS squats at surface at 20 in height. STG Duration 03/31/23 Color Strainer Goal (LTG) Pt able to complete 13 STS squtas at hi-low table at height of 20 in. LTG Duration 04/21/23 Strength Impairment Strength Impairment Pt with gross LE strength of 4 -/5/ Short Term Goal (STG) Pt with gross LE strength of 4 /5. STG Duration 03/31/23 Group Home Goal (LTG) Pt with gross LE strength of 4 +/5 LTG Duration 04/21/23 Assessment Summary Assessment Progressed pt with addition of sport cord for reactive balance, strengthening, and stabilization to address pt goals, cues for control, pt tolerated well. Shoulder aggravated with shuttle balance today, pt reports shldr pain has been like that for awhile since previous shldr injury/surgery, not new. Issued patient teal TB for HEP. Physical Therapy Plan Frequency and Duration Frequency of Treatment 2x/Week Duration of treatment (weeks) 6 Plan of Care Start Date 03/10/23 Plan of Care End Date 04/21/23 Therapeutic Interventions Therapeutic Interventions Balance Training,Coordination Training,Gait Training,Home Exercise Program,Joint Mobilizations,Manual Therapy, Neuromuscular Re-education, Patient/Caregiver Education, Self-Care/Home Management,Soft Tissue Mobilization,Taping, Therapeutic Activities, Therapeutic Exercises Modalities Cold Pack/Ice Massage,Electric Stimulation,Hot Packs, Ultrasound Next Visit Focus/Plan Next Note Type Treatment Note Next Visit Plan Progress LE strength and balance as appropriate
--- NOTE | 2023-03-30 13:32 | PT.OTN ---
Current Diagnoses Unspecified sequelae of cerebral infarction (03/30/23) Physical Therapy Treatment Note PT-OP-A Visit Information Start: 03/10/23 10:34 Freq: Status: Active Protocol: Document 03/30/23 13:32 AM (Rec: 03/30/23 13:40 AM [id number]) Out-Patient Physical Therapy Visit Information Visit Information Visit Type Treatment Note Visit Start Time 13:32 Visit Stop Time 14:17 Total Visit Minutes 45 Visit Number 6 Number of CRATE ICER Visits 1 PT-OP-B Current Condition Start: 03/10/23 10:34 Freq: Status: Active Protocol: Document 03/22/23 10:36 AM (Rec: 03/22/23 11:29 AM [id number]) Current Condition History of Current Condition Onset Date 02/08/23 Current Complaints Balance, falls History of Current Condition Pt reports that she has had 2 recent TIA's on February 08. Pt reports that she has had TIA's in the past and her brain MRI showed prior stroke. She went to the ER and they did not admit her at that time . Pt reports that she has been having issues with her balance for 6+ months prior to recent TIA. Pt also has macular degeneration and reports difficulty seeing in the dark. Pt reports that she had a fall and hit her head. Pt reports frequent falls. Pt reports difficulty with ascending/descending stairs. Pt reports difficulty with walking on uneven terrain. Pt reports that she has had 2-3 falls in the last few months. Pt reports getting in and out of tub is difficult. She thinks she might need a shower chair. Pt reports that she does not use an AD, though will often hang on to her when ambulating in the community. Prior Treatments and Tests Brain MRI Future Testing and Treatments Planned Neurologist PT-OP-C Subjective Start: 03/10/23 10:34 Freq: Status: Active Protocol: Document 03/30/23 13:32 AM (Rec: 03/30/23 13:40 AM [id number]) OP-PT Subjective Patient Comments Patient Comments Pt reports that she had another dizzy episode while she was at the grocery store. She stood there for a little bit and it resolved. PT-OP-D Balance Start: 03/10/23 10:34 Freq: Status: Active Protocol: Document 03/30/23 13:32 AM (Rec: 03/30/23 13:41 AM [id number]) Blanchard Balance Assessment Evaluation Sitting to Standing Ability Independent w/out Hands Unsupported Stance Safely- 2 minutes Sitting Unsupported, Feet on Floor Safely- 2 minutes Standing to Sitting Ability Safely, Minimal Hand Use Transfer Ability Safely, Minimal Hand Use Unsupported Stance- Eyes Closed Safely, 10 seconds Unsupported Stance- Eyes Open Independent, 1 minute Reaching Forward Standing Confidently, 10 inches Pick- Up Object From Floor Independent/Safe Look Behind Shoulder - Standing Turns Sideways Only Turning 360 Degrees Turns slowly, but safely Unsupported Stance, Alternating Feet on (I)- 8 Steps in 20 secs Stair Unsupported Tandem Stance Small Step- 30 seconds Unilateral Leg Stance Lifts Leg/Unable to Hold Total Score Blanchard Total Score (out of 56 points) 47 Blanchard Impairment Rating 20 to 39% Impaired (Score 34- 44) PT-OP-E Functional Tests Start: 03/10/23 10:34 Freq: Status: Active Protocol: Document 03/30/23 13:32 AM (Rec: 03/30/23 13:41 AM [id number]) Functional Tests 30 Second Sit to Stand Test Score 10 PT-OP-G Mobility & Gait Start: 03/10/23 10:34 Freq: Status: Active Protocol: Document 03/10/23 10:35 AM (Rec: 03/10/23 12:55 AM [id number]) OP Gait Assessment Gait Gait Assistance Required: Independent Assistive Devices Assistive Device None Comments Gait Comments femoral MR during gait PT-OP-M Strength Start: 03/10/23 10:34 Freq: Status: Active Protocol: Document 03/30/23 13:32 AM (Rec: 03/30/23 13:41 AM [id number]) Hip Strength Hip Manual Muscle Testing Left Flexion (L2) 4 Good Extension (S1) 4 Good Abduction 4 Good Adduction 4 Good Right Flexion (L2) 4 Good Extension (S1) 4 Good Abduction 4 Good Adduction 4 Good Knee Strength Knee Manual Muscle Testing Left Flexion (S2) 4 Good Extension (L3) 4 Good Right Flexion (S2) 4 Good Extension (L3) 4 Good PT-OP-Q Treatments Start: 03/10/23 10:34 Freq: Status: Active Protocol: Document 03/30/23 13:32 AM (Rec: 03/30/23 13:40 AM [id number]) Cardio Equipment Recumbent Elliptical (Biodex) Duration (Minutes) 5 Resistance 3 Seat Position 8 Gym Equipment Shuttle Recovery Bilateral Squats Resistance 37 # (navy band) Shuttle Recovery Platform Stable Reps/Time 2x1 min Therapeutic Exercises Standing Exercises Side step Resistance [place] TB Equipment Used railing Reps/Minutes 2x20 ft hip extension Side bilateral Resistance [place] TB Equipment Used railing Reps/Minutes 2x10 Calf raise Standing Exercise Name Standing calf raise Side bilateral Equipment Used railing Reps/Minutes 2x10 Hip abduction Standing Exercise Name Standing hip abduction Side bilateral Resistance [place] TB Equipment Used railing Reps/Minutes 2x10 Chair squat Reps/Minutes x10 Neuro Re-Education Treatment Balance Activities Dynamic gait Details head turns side to side, up/ down, fast/slow Surface stable SLS Details SLS Surface stable Tandem stance Details tandem Surface stable PT-OP-T Assessment and Plan Start: 03/10/23 10:34 Freq: Status: Active Protocol: Document 03/30/23 13:32 AM (Rec: 03/30/23 13:40 AM [id number]) Physical Therapy Assessment Impairments Impairments Activity Tolerance,Balance, Coordination,Functional Activities,Functional Mobility ,Gait,Posture,ROM,Strength Goals Tandem Impairment Balance Impairment Pt able to supervisor word processing supported tandem for 7 seconds. Short Term Goal (STG) Pt able to supervisor word processing unsupported tandem stance for 15 seconds. 03/30/23: Achieved STG Duration 03/31/23-achieved Contracting Support Specialist Goal (LTG) Pt able to supervisor word processing unsupported tandem for 25 seconds. LTG Duration 04/21/23 Balance Impairment Blanchard balance Impairment Pt with score of 39/56 on Blanchard balance. Short Term Goal (STG) Pt with 43/56 score on Blanchard Balance 03/30/23: Achieved 47/56 STG Duration 03/31/23-achieved Half-Way Goal (LTG) Pt with score of >46/56 on Blanchard balance. LTG Duration 04/21/23 30 sec STS squat Impairment Strength Impairment Pt able to complete 7 STS squats at hi-low table at 20 in height. Short Term Goal (STG) Pt able to complete 10 STS squats at surface at 20 in height. 03/30/23: Goal Achieved STG Duration 03/31/23-achieved Half-Way Goal (LTG) Pt able to complete 13 STS squats at hi-low table at height of 20 in. LTG Duration 04/21/23 Strength Impairment Strength Impairment Pt with gross LE strength of 4 -/5/ Short Term Goal (STG) Pt with gross LE strength of 4 /5. 03/30/23: Achieved 4/5 STG Duration 03/31/23-achieved Contracting Support Specialist Goal (LTG) Pt with gross LE strength of 4 +/5 LTG Duration 04/21/23 Assessment Summary Assessment Pt met all STG today. Pt demonstrates good progress towards LTG. Pt challenged with ambulation with head turns, demonstrating decreased pina and path deviation. Pt challenged with hip strengthening with teal TB today, therefore decreased to peach to improve form. Pt would benefit from continued PT to progress strength, mobility and balance to improve tolerance/safety with functional tassk. Physical Therapy Plan Frequency and Duration Frequency of Treatment 2x/Week Duration of treatment (weeks) 6 Plan of Care Start Date 03/10/23 Plan of Care End Date 04/21/23 Therapeutic Interventions Therapeutic Interventions Balance Training,Coordination Training,Gait Training,Home Exercise Program,Joint Mobilizations,Manual Therapy, Neuromuscular Re-education, Patient/Caregiver Education, Self-Care/Home Management,Soft Tissue Mobilization,Taping, Therapeutic Activities, Therapeutic Exercises Modalities Cold Pack/Ice Massage,Electric Stimulation,Hot Packs, Ultrasound Next Visit Focus/Plan Next Note Type Treatment Note Next Visit Plan Progress LE strength and balance as appropriate
--- NOTE | 2023-04-05 10:35 | PT.OTN ---
Current Diagnoses Unspecified sequelae of cerebral infarction (04/05/23) Physical Therapy Treatment Note PT-OP-A Visit Information Start: 03/10/23 10:34 Freq: Status: Active Protocol: Document 04/05/23 10:35 AM (Rec: 04/05/23 11:21 AM [id number]) Out-Patient Physical Therapy Visit Information Visit Information Visit Type Treatment Note Visit Start Time 10:35 Visit Stop Time 11:15 Total Visit Minutes 40 Visit Number 7 Number of [place] STUDIES PROFESSOR Visits 1 PT-OP-B Current Condition Start: 03/10/23 10:34 Freq: Status: Active Protocol: Document 03/22/23 10:36 AM (Rec: 03/22/23 11:29 AM [id number]) Current Condition History of Current Condition Onset Date 02/08/23 Current Complaints Balance, falls History of Current Condition Pt reports that she has had 2 recent TIA's on February 08. Pt reports that she has had TIA's in the past and her brain MRI showed prior stroke. She went to the ER and they did not admit her at that time . Pt reports that she has been having issues with her balance for 6+ months prior to recent TIA. Pt also has macular degeneration and reports difficulty seeing in the dark. Pt reports that she had a fall and hit her head. Pt reports frequent falls. Pt reports difficulty with ascending/descending stairs. Pt reports difficulty with walking on uneven terrain. Pt reports that she has had 2-3 falls in the last few months. Pt reports getting in and out of tub is difficult. She thinks she might need a shower chair. Pt reports that she does not use an AD, though will often hang on to her when ambulating in the community. Prior Treatments and Tests Brain MRI Future Testing and Treatments Planned Neurologist PT-OP-C Subjective Start: 03/10/23 10:34 Freq: Status: Active Protocol: Document 04/05/23 10:35 AM (Rec: 04/05/23 11:20 AM [id number]) OP-PT Subjective Patient Comments Patient Comments Pt reports that her hips/ glutes get sore with HEP. Pt denies dizziness. PT-OP-D Balance Start: 03/10/23 10:34 Freq: Status: Active Protocol: Document 03/30/23 13:32 AM (Rec: 03/30/23 13:41 AM [id number]) Blanchard Balance Assessment Evaluation Sitting to Standing Ability Independent w/out Hands Unsupported Stance Safely- 2 minutes Sitting Unsupported, Feet on Floor Safely- 2 minutes Standing to Sitting Ability Safely, Minimal Hand Use Transfer Ability Safely, Minimal Hand Use Unsupported Stance- Eyes Closed Safely, 10 seconds Unsupported Stance- Eyes Open Independent, 1 minute Reaching Forward Standing Confidently, 10 inches Pick- Up Object From Floor Independent/Safe Look Behind Shoulder - Standing Turns Sideways Only Turning 360 Degrees Turns slowly, but safely Unsupported Stance, Alternating Feet on (I)- 8 Steps in 20 secs Stair Unsupported Tandem Stance Small Step- 30 seconds Unilateral Leg Stance Lifts Leg/Unable to Hold Total Score Blanchard Total Score (out of 56 points) 47 Blanchard Impairment Rating 20 to 39% Impaired (Score 34- 44) PT-OP-E Functional Tests Start: 03/10/23 10:34 Freq: Status: Active Protocol: Document 03/30/23 13:32 AM (Rec: 03/30/23 13:41 AM [id number]) Functional Tests 30 Second Sit to Stand Test Score 10 PT-OP-G Mobility & Gait Start: 03/10/23 10:34 Freq: Status: Active Protocol: Document 03/10/23 10:35 AM (Rec: 03/10/23 12:55 AM [id number]) OP Gait Assessment Gait Gait Assistance Required: Independent Assistive Devices Assistive Device None Comments Gait Comments femoral MR during gait PT-OP-M Strength Start: 03/10/23 10:34 Freq: Status: Active Protocol: Document 03/30/23 13:32 AM (Rec: 03/30/23 13:41 AM [id number]) Hip Strength Hip Manual Muscle Testing Left Flexion (L2) 4 Good Extension (S1) 4 Good Abduction 4 Good Adduction 4 Good Right Flexion (L2) 4 Good Extension (S1) 4 Good Abduction 4 Good Adduction 4 Good Knee Strength Knee Manual Muscle Testing Left Flexion (S2) 4 Good Extension (L3) 4 Good Right Flexion (S2) 4 Good Extension (L3) 4 Good PT-OP-Q Treatments Start: 03/10/23 10:34 Freq: Status: Active Protocol: Document 04/05/23 10:35 AM (Rec: 04/05/23 11:20 AM [id number]) Cardio Equipment Recumbent Elliptical (Biodex) Duration (Minutes) 5 Resistance 3 Seat Position 8 Therapeutic Exercises Standing Exercises Standing hip flexion Standing Exercise Name Standing hip flexion Side bilateral Resistance teal TB Equipment Used // bars Reps/Minutes x10 Hip abduction Standing Exercise Name Standing hip abduction Side bilateral Resistance [place] TB Equipment Used railing Reps/Minutes 2x10 Chair squat Reps/Minutes x10 Neuro Re-Education Treatment Balance Activities Clock Surface stable Equipment clock yourself brian Reps/Duration 3 min Comments 30 SPM, CGA Dynamic gait Details head turns side to side, up/ down, , karoke, high knee Surface stable Comments CGA PT-OP-T Assessment and Plan Start: 03/10/23 10:34 Freq: Status: Active Protocol: Document 04/05/23 10:35 AM (Rec: 04/05/23 11:20 AM [id number]) Physical Therapy Assessment Goals Tandem Impairment Balance Impairment Pt able to database admin supported tandem for 7 seconds. Short Term Goal (STG) Pt able to database admin unsupported tandem stance for 15 seconds. 03/30/23: Achieved STG Duration 03/31/23-achieved Assisted Goal (LTG) Pt able to database admin unsupported tandem for 25 seconds. LTG Duration 04/21/23 Balance Impairment Blanchard balance Impairment Pt with score of 39/56 on Blanchard balance. Short Term Goal (STG) Pt with 43/56 score on Blanchard Balance 03/30/23: Achieved 47/56 STG Duration 03/31/23-achieved Fringe Maker Goal (LTG) Pt with score of >46/56 on Blanchard balance. LTG Duration 04/21/23 30 sec STS squat Impairment Strength Impairment Pt able to complete 7 STS squats at hi-low table at 20 in height. Short Term Goal (STG) Pt able to complete 10 STS squats at surface at 20 in height. 03/30/23: Goal Achieved STG Duration 03/31/23-achieved Assisted Goal (LTG) Pt able to complete 13 STS squats at hi-low table at height of 20 in. LTG Duration 04/21/23 Strength Impairment Strength Impairment Pt with gross LE strength of 4 -/5/ Short Term Goal (STG) Pt with gross LE strength of 4 /5. 03/30/23: Achieved 4/5 STG Duration 03/31/23-achieved Fringe Maker Goal (LTG) Pt with gross LE strength of 4 +/5 LTG Duration 04/21/23 Assessment Summary Assessment Pt continues to be challenged with ambulation with head turns, demonstrating path deviation and crossing of feet . Pt required CGA during. Pt challenged with clock activity, particularly with moving her L foot. Pt required cueing for form with resisted abduction to decrease trunk movement and hip flexor involvement. Pt would benefit from continued PT to progress strength, balance and coordination as tolerated. Physical Therapy Plan Frequency and Duration Frequency of Treatment 2x/Week Duration of treatment (weeks) 6 Plan of Care Start Date 03/10/23 Plan of Care End Date 04/21/23 Therapeutic Interventions Therapeutic Interventions Balance Training,Coordination Training,Gait Training,Home Exercise Program,Joint Mobilizations,Manual Therapy, Neuromuscular Re-education, Patient/Caregiver Education, Self-Care/Home Management,Soft Tissue Mobilization,Taping, Therapeutic Activities, Therapeutic Exercises Modalities Cold Pack/Ice Massage,Electric Stimulation,Hot Packs, Ultrasound Next Visit Focus/Plan Next Note Type Treatment Note Next Visit Plan Progress LE strength and balance as appropriate
--- NOTE | 2023-04-07 14:45 | PT.OTN ---
Current Diagnoses Unspecified sequelae of cerebral infarction (04/07/23) Physical Therapy Treatment Note PT-OP-A Visit Information Start: 03/10/23 10:34 Freq: Status: Active Protocol: Document 04/07/23 09:59 (Rec: 04/07/23 11:01 [id number]) Out-Patient Physical Therapy Visit Information Visit Information Visit Type Treatment Note Visit Start Time 10:00 Visit Stop Time 10:43 Total Visit Minutes 43 Visit Number 8 Number of PAYROLL DIRECTOR Visits 1 PT-OP-B Current Condition Start: 03/10/23 10:34 Freq: Status: Active Protocol: Document 03/22/23 10:36 AM (Rec: 03/22/23 11:29 AM [id number]) Current Condition History of Current Condition Onset Date 02/08/23 Current Complaints Balance, falls History of Current Condition Pt reports that she has had 2 recent TIA's on February 08. Pt reports that she has had TIA's in the past and her brain MRI showed prior stroke. She went to the ER and they did not admit her at that time . Pt reports that she has been having issues with her balance for 6+ months prior to recent TIA. Pt also has macular degeneration and reports difficulty seeing in the dark. Pt reports that she had a fall and hit her head. Pt reports frequent falls. Pt reports difficulty with ascending/descending stairs. Pt reports difficulty with walking on uneven terrain. Pt reports that she has had 2-3 falls in the last few months. Pt reports getting in and out of tub is difficult. She thinks she might need a shower chair. Pt reports that she does not use an AD, though will often hang on to her when ambulating in the community. Prior Treatments and Tests Brain MRI Future Testing and Treatments Planned Neurologist PT-OP-C Subjective Start: 03/10/23 10:34 Freq: Status: Active Protocol: Document 04/07/23 09:59 (Rec: 04/07/23 11:01 [id number]) OP-PT Subjective Patient Comments Patient Comments Pt denies dizziness since last session, has an appointment with neurologist now in May instead of July. PT-OP-D Balance Start: 03/10/23 10:34 Freq: Status: Active Protocol: Document 03/30/23 13:32 AM (Rec: 03/30/23 13:41 AM [id number]) Blanchard Balance Assessment Evaluation Sitting to Standing Ability Independent w/out Hands Unsupported Stance Safely- 2 minutes Sitting Unsupported, Feet on Floor Safely- 2 minutes Standing to Sitting Ability Safely, Minimal Hand Use Transfer Ability Safely, Minimal Hand Use Unsupported Stance- Eyes Closed Safely, 10 seconds Unsupported Stance- Eyes Open Independent, 1 minute Reaching Forward Standing Confidently, 10 inches Pick- Up Object From Floor Independent/Safe Look Behind Shoulder - Standing Turns Sideways Only Turning 360 Degrees Turns slowly, but safely Unsupported Stance, Alternating Feet on (I)- 8 Steps in 20 secs Stair Unsupported Tandem Stance Small Step- 30 seconds Unilateral Leg Stance Lifts Leg/Unable to Hold Total Score Blanchard Total Score (out of 56 points) 47 Blanchard Impairment Rating 20 to 39% Impaired (Score 34- 44) PT-OP-E Functional Tests Start: 03/10/23 10:34 Freq: Status: Active Protocol: Document 03/30/23 13:32 AM (Rec: 03/30/23 13:41 AM [id number]) Functional Tests 30 Second Sit to Stand Test Score 10 PT-OP-G Mobility & Gait Start: 03/10/23 10:34 Freq: Status: Active Protocol: Document 03/10/23 10:35 AM (Rec: 03/10/23 12:55 AM [id number]) OP Gait Assessment Gait Gait Assistance Required: Independent Assistive Devices Assistive Device None Comments Gait Comments femoral MR during gait PT-OP-M Strength Start: 03/10/23 10:34 Freq: Status: Active Protocol: Document 03/30/23 13:32 AM (Rec: 03/30/23 13:41 AM [id number]) Hip Strength Hip Manual Muscle Testing Left Flexion (L2) 4 Good Extension (S1) 4 Good Abduction 4 Good Adduction 4 Good Right Flexion (L2) 4 Good Extension (S1) 4 Good Abduction 4 Good Adduction 4 Good Knee Strength Knee Manual Muscle Testing Left Flexion (S2) 4 Good Extension (L3) 4 Good Right Flexion (S2) 4 Good Extension (L3) 4 Good PT-OP-Q Treatments Start: 03/10/23 10:34 Freq: Status: Active Protocol: Document 04/07/23 09:59 SW (Rec: 04/07/23 11:01 SW [id number]) Cardio Equipment Recumbent Elliptical (Biodex) Duration (Minutes) 5 Resistance 4 Seat Position 8 Gym Equipment Sport Cord Red Exercise Details Fwd/back Comments reactive balance, stabilization Therapeutic Exercises Standing Exercises Standing hip flexion Standing Exercise Name Standing hip flexion Side bilateral Resistance teal TB Equipment Used // bars Reps/Minutes x10 Hip abduction Standing Exercise Name Standing hip abduction Side bilateral Resistance [place] TB Equipment Used railing Reps/Minutes 2x10 Chair squat Reps/Minutes x10 Neuro Re-Education Treatment Balance Activities Clock Surface Stable Equipment clock taps 12,3,6 Comments FIRST AID TRAINER prn Dynamic gait Details head turns side to side, up/ down, , karoke, high knee, tandem Surface stable Comments CGA PT-OP-T Assessment and Plan Start: 03/10/23 10:34 Freq: Status: Active Protocol: Document 04/07/23 09:59 SW (Rec: 04/07/23 11:01 [id number]) Physical Therapy Assessment Goals Tandem Impairment Balance Impairment Pt able to cutting machine tender helper supported tandem for 7 seconds. Short Term Goal (STG) Pt able to cutting machine tender helper unsupported tandem stance for 15 seconds. 03/30/23: Achieved STG Duration 03/31/23-achieved Alf Goal (LTG) Pt able to cutting machine tender helper unsupported tandem for 25 seconds. LTG Duration 04/21/23 Balance Impairment Blanchard balance Impairment Pt with score of 39/56 on Blanchard balance. Short Term Goal (STG) Pt with 43/56 score on Blanchard Balance 03/30/23: Achieved 47/56 STG Duration 03/31/23-achieved Molder Fitting Goal (LTG) Pt with score of >46/56 on Blanchard balance. LTG Duration 04/21/23 30 sec STS squat Impairment Strength Impairment Pt able to complete 7 STS squats at hi-low table at 20 in height. Short Term Goal (STG) Pt able to complete 10 STS squats at surface at 20 in height. 03/30/23: Goal Achieved STG Duration 03/31/23-achieved Molder Fitting Goal (LTG) Pt able to complete 13 STS squats at hi-low table at height of 20 in. LTG Duration 04/21/23 Strength Impairment Strength Impairment Pt with gross LE strength of 4 -/5/ Short Term Goal (STG) Pt with gross LE strength of 4 /5. 03/30/23: Achieved 4/5 STG Duration 03/31/23-achieved Molder Fitting Goal (LTG) Pt with gross LE strength of 4 +/5 LTG Duration 04/21/23 Assessment Summary Assessment Trialed regression of resistance to AROM with standing hip abd strength d/t heavy compensations with trunk /hip flexors, minimal improvement, pt had difficulty ascending into full hip extension throughout session. Physical Therapy Plan Frequency and Duration Frequency of Treatment 2x/Week Duration of treatment (weeks) 6 Plan of Care Start Date 03/10/23 Plan of Care End Date 04/21/23 Therapeutic Interventions Therapeutic Interventions Balance Training,Coordination Training,Gait Training,Home Exercise Program,Joint Mobilizations,Manual Therapy, Neuromuscular Re-education, Patient/Caregiver Education, Self-Care/Home Management,Soft Tissue Mobilization,Taping, Therapeutic Activities, Therapeutic Exercises Modalities Cold Pack/Ice Massage,Electric Stimulation,Hot Packs, Ultrasound Next Visit Focus/Plan Next Note Type Treatment Note Next Visit Plan Progress LE strength and balance as appropriate
--- NOTE | 2023-04-11 13:33 | PT.OTN ---
Current Diagnoses Unspecified sequelae of cerebral infarction (04/11/23) Physical Therapy Treatment Note PT-OP-A Visit Information Start: 03/10/23 10:34 Freq: Status: Active Protocol: Document 04/11/23 13:33 AM (Rec: 04/11/23 14:18 AM [id number]) Out-Patient Physical Therapy Visit Information Visit Information Visit Type Treatment Note Visit Start Time 13:33 Visit Stop Time 14:15 Total Visit Minutes 43 Visit Number 9 Number of DIRECTOR OF PROVIDER RELATIONS Visits 1 PT-OP-B Current Condition Start: 03/10/23 10:34 Freq: Status: Active Protocol: Document 03/22/23 10:36 AM (Rec: 03/22/23 11:29 AM [id number]) Current Condition History of Current Condition Onset Date 02/08/23 Current Complaints Balance, falls History of Current Condition Pt reports that she has had 2 recent TIA's on February 08. Pt reports that she has had TIA's in the past and her brain MRI showed prior stroke. She went to the ER and they did not admit her at that time . Pt reports that she has been having issues with her balance for 6+ months prior to recent TIA. Pt also has macular degeneration and reports difficulty seeing in the dark. Pt reports that she had a fall and hit her head. Pt reports frequent falls. Pt reports difficulty with ascending/descending stairs. Pt reports difficulty with walking on uneven terrain. Pt reports that she has had 2-3 falls in the last few months. Pt reports getting in and out of tub is difficult. She thinks she might need a shower chair. Pt reports that she does not use an AD, though will often hang on to her when ambulating in the community. Prior Treatments and Tests Brain MRI Future Testing and Treatments Planned Neurologist PT-OP-C Subjective Start: 03/10/23 10:34 Freq: Status: Active Protocol: Document 04/11/23 13:33 AM (Rec: 04/11/23 14:18 AM [id number]) OP-PT Subjective Patient Comments Patient Comments Pt's neuro appt is Jun 02. Pt reports that she forgot her glasses today and has some difficulty with navigating environment secondary to macular degeneration symptoms. PT-OP-D Balance Start: 03/10/23 10:34 Freq: Status: Active Protocol: Document 03/30/23 13:32 AM (Rec: 03/30/23 13:41 AM [id number]) Blanchard Balance Assessment Evaluation Sitting to Standing Ability Independent w/out Hands Unsupported Stance Safely- 2 minutes Sitting Unsupported, Feet on Floor Safely- 2 minutes Standing to Sitting Ability Safely, Minimal Hand Use Transfer Ability Safely, Minimal Hand Use Unsupported Stance- Eyes Closed Safely, 10 seconds Unsupported Stance- Eyes Open Independent, 1 minute Reaching Forward Standing Confidently, 10 inches Pick- Up Object From Floor Independent/Safe Look Behind Shoulder - Standing Turns Sideways Only Turning 360 Degrees Turns slowly, but safely Unsupported Stance, Alternating Feet on (I)- 8 Steps in 20 secs Stair Unsupported Tandem Stance Small Step- 30 seconds Unilateral Leg Stance Lifts Leg/Unable to Hold Total Score Blanchard Total Score (out of 56 points) 47 Blanchard Impairment Rating 20 to 39% Impaired (Score 34- 44) PT-OP-E Functional Tests Start: 03/10/23 10:34 Freq: Status: Active Protocol: Document 03/30/23 13:32 AM (Rec: 03/30/23 13:41 AM [id number]) Functional Tests 30 Second Sit to Stand Test Score 10 PT-OP-G Mobility & Gait Start: 03/10/23 10:34 Freq: Status: Active Protocol: Document 03/10/23 10:35 AM (Rec: 03/10/23 12:55 AM [id number]) OP Gait Assessment Gait Gait Assistance Required: Independent Assistive Devices Assistive Device None Comments Gait Comments femoral MR during gait PT-OP-M Strength Start: 03/10/23 10:34 Freq: Status: Active Protocol: Document 03/30/23 13:32 AM (Rec: 03/30/23 13:41 AM [id number]) Hip Strength Hip Manual Muscle Testing Left Flexion (L2) 4 Good Extension (S1) 4 Good Abduction 4 Good Adduction 4 Good Right Flexion (L2) 4 Good Extension (S1) 4 Good Abduction 4 Good Adduction 4 Good Knee Strength Knee Manual Muscle Testing Left Flexion (S2) 4 Good Extension (L3) 4 Good Right Flexion (S2) 4 Good Extension (L3) 4 Good PT-OP-Q Treatments Start: 03/10/23 10:34 Freq: Status: Active Protocol: Document 04/11/23 13:33 AM (Rec: 04/11/23 14:18 AM [id number]) Cardio Equipment Recumbent Elliptical (Biodex) Duration (Minutes) 5 Resistance 4 Seat Position 8 Gym Equipment Shuttle Recovery Bilateral Squats Resistance 50# (2 navy) Reps/Time [id number] Therapeutic Exercises Standing Exercises hip extension Standing Exercise Name Standing hip extension Side bilateral Resistance peach TB Reps/Minutes 2x10 Hip abduction Standing Exercise Name Standing hip abduction Side bilateral Resistance [place] TB Equipment Used railing Reps/Minutes 2x10 Neuro Re-Education Treatment Balance Activities Clock Surface Stable Equipment clock yourself Comments CGA, 40 SPM Dynamic gait Details head turns side to side, up/ down, backwards walking Surface stable Comments CGA PT-OP-T Assessment and Plan Start: 03/10/23 10:34 Freq: Status: Active Protocol: Document 04/11/23 13:33 AM (Rec: 04/11/23 14:18 AM [id number]) Physical Therapy Assessment Goals Tandem Impairment Balance Impairment Pt able to lapping machine operator supported tandem for 7 seconds. Short Term Goal (STG) Pt able to lapping machine operator unsupported tandem stance for 15 seconds. 03/30/23: Achieved STG Duration 03/31/23-achieved Fdc Goal (LTG) Pt able to lapping machine operator unsupported tandem for 25 seconds. LTG Duration 04/21/23 Balance Impairment Blanchard balance Impairment Pt with score of 39/56 on Blanchard balance. Short Term Goal (STG) Pt with 43/56 score on Blanchard Balance 03/30/23: Achieved 47/56 STG Duration 03/31/23-achieved Cutting Machine Tender Helper Goal (LTG) Pt with score of >46/56 on Blanchard balance. LTG Duration 04/21/23 30 sec STS squat Impairment Strength Impairment Pt able to complete 7 STS squats at hi-low table at 20 in height. Short Term Goal (STG) Pt able to complete 10 STS squats at surface at 20 in height. 03/30/23: Goal Achieved STG Duration 03/31/23-achieved Fdc Goal (LTG) Pt able to complete 13 STS squats at hi-low table at height of 20 in. LTG Duration 04/21/23 Strength Impairment Strength Impairment Pt with gross LE strength of 4 -/5/ Short Term Goal (STG) Pt with gross LE strength of 4 /5. 03/30/23: Achieved 4/5 STG Duration 03/31/23-achieved Cutting Machine Tender Helper Goal (LTG) Pt with gross LE strength of 4 +/5 LTG Duration 04/21/23 Assessment Summary Assessment Pt continues to be challenged with gait with head turns. Pt with improved coordination with clock activity with higher SPM. Pt able to tolerate increased resistance with shuttle recovery activity . Pt would benefit from continued PT to progress strength and improve balance to decrease fall risk. Physical Therapy Plan Frequency and Duration Frequency of Treatment 2x/Week Duration of treatment (weeks) 6 Plan of Care Start Date 03/10/23 Plan of Care End Date 04/21/23 Therapeutic Interventions Therapeutic Interventions Balance Training,Coordination Training,Gait Training,Home Exercise Program,Joint Mobilizations,Manual Therapy, Neuromuscular Re-education, Patient/Caregiver Education, Self-Care/Home Management,Soft Tissue Mobilization,Taping, Therapeutic Activities, Therapeutic Exercises Modalities Cold Pack/Ice Massage,Electric Stimulation,Hot Packs, Ultrasound Next Visit Focus/Plan Next Note Type Treatment Note Next Visit Plan Progress LE strength and balance as appropriate
--- NOTE | 2023-04-14 12:48 | PT.OTN ---
Current Diagnoses Unspecified sequelae of cerebral infarction (04/14/23) Physical Therapy Treatment Note PT-OP-A Visit Information Start: 03/10/23 10:34 Freq: Status: Active Protocol: Document 04/14/23 10:04 SW (Rec: 04/14/23 10:59 [id number]) Out-Patient Physical Therapy Visit Information Visit Information Visit Type Treatment Note Visit Start Time 10:00 Visit Stop Time 10:45 Total Visit Minutes 45 Visit Number 10 Number of DIVORCE LAWYER Visits 1 PT-OP-B Current Condition Start: 03/10/23 10:34 Freq: Status: Active Protocol: Document 03/22/23 10:36 AM (Rec: 03/22/23 11:29 AM [id number]) Current Condition History of Current Condition Onset Date 02/08/23 Current Complaints Balance, falls History of Current Condition Pt reports that she has had 2 recent TIA's on February 08. Pt reports that she has had TIA's in the past and her brain MRI showed prior stroke. She went to the ER and they did not admit her at that time . Pt reports that she has been having issues with her balance for 6+ months prior to recent TIA. Pt also has macular degeneration and reports difficulty seeing in the dark. Pt reports that she had a fall and hit her head. Pt reports frequent falls. Pt reports difficulty with ascending/descending stairs. Pt reports difficulty with walking on uneven terrain. Pt reports that she has had 2-3 falls in the last few months. Pt reports getting in and out of tub is difficult. She thinks she might need a shower chair. Pt reports that she does not use an AD, though will often hang on to her when ambulating in the community. Prior Treatments and Tests Brain MRI Future Testing and Treatments Planned Neurologist PT-OP-C Subjective Start: 03/10/23 10:34 Freq: Status: Active Protocol: Document 04/14/23 10:04 SW (Rec: 04/14/23 10:59 [id number]) OP-PT Subjective Patient Comments Patient Comments Pt reports being sore post last session, but resolved appropriately. Pt reports brief episode of dizziness at [employer] with changes there and a lot of stuff. PT-OP-D Balance Start: 03/10/23 10:34 Freq: Status: Active Protocol: Document 03/30/23 13:32 AM (Rec: 03/30/23 13:41 AM [id number]) Blanchard Balance Assessment Evaluation Sitting to Standing Ability Independent w/out Hands Unsupported Stance Safely- 2 minutes Sitting Unsupported, Feet on Floor Safely- 2 minutes Standing to Sitting Ability Safely, Minimal Hand Use Transfer Ability Safely, Minimal Hand Use Unsupported Stance- Eyes Closed Safely, 10 seconds Unsupported Stance- Eyes Open Independent, 1 minute Reaching Forward Standing Confidently, 10 inches Pick- Up Object From Floor Independent/Safe Look Behind Shoulder - Standing Turns Sideways Only Turning 360 Degrees Turns slowly, but safely Unsupported Stance, Alternating Feet on (I)- 8 Steps in 20 secs Stair Unsupported Tandem Stance Small Step- 30 seconds Unilateral Leg Stance Lifts Leg/Unable to Hold Total Score Blanchard Total Score (out of 56 points) 47 Blanchard Impairment Rating 20 to 39% Impaired (Score 34- 44) PT-OP-E Functional Tests Start: 03/10/23 10:34 Freq: Status: Active Protocol: Document 03/30/23 13:32 AM (Rec: 03/30/23 13:41 AM [id number]) Functional Tests 30 Second Sit to Stand Test Score 10 PT-OP-G Mobility & Gait Start: 03/10/23 10:34 Freq: Status: Active Protocol: Document 03/10/23 10:35 AM (Rec: 03/10/23 12:55 AM [id number]) OP Gait Assessment Gait Gait Assistance Required: Independent Assistive Devices Assistive Device None Comments Gait Comments femoral MR during gait PT-OP-M Strength Start: 03/10/23 10:34 Freq: Status: Active Protocol: Document 03/30/23 13:32 AM (Rec: 03/30/23 13:41 AM [id number]) Hip Strength Hip Manual Muscle Testing Left Flexion (L2) 4 Good Extension (S1) 4 Good Abduction 4 Good Adduction 4 Good Right Flexion (L2) 4 Good Extension (S1) 4 Good Abduction 4 Good Adduction 4 Good Knee Strength Knee Manual Muscle Testing Left Flexion (S2) 4 Good Extension (L3) 4 Good Right Flexion (S2) 4 Good Extension (L3) 4 Good PT-OP-Q Treatments Start: 03/10/23 10:34 Freq: Status: Active Protocol: Document 04/14/23 10:04 SW (Rec: 04/14/23 10:59 SW [id number]) Cardio Equipment Recumbent Elliptical (Biodex) Duration (Minutes) 5 Resistance 4 Seat Position 8 Gym Equipment Shuttle Recovery Bilateral Squats Resistance 50# (2 navy) Reps/Time [id number] Therapeutic Exercises Standing Exercises hip extension Standing Exercise Name Standing hip extension Side bilateral Resistance peach TB Reps/Minutes 2x10 Hip abduction Standing Exercise Name Standing hip abduction Side bilateral Resistance [place] TB Equipment Used railing Reps/Minutes 2x10 Neuro Re-Education Treatment Balance Activities Obstacle Course Details Dynamic Balance Surface stable/unstable Equipment Foam, Hurdles Clock Surface Stable Equipment Clock taps Comments CGA Dynamic gait Details head turns side to side, up/ down, backwards walking Surface stable Comments CGA SLS Surface Stable Equipment @ rail Comments Light E [employer] MERCHANT prn Tandem walking Details Tandem walking Equipment // bars PT-OP-T Assessment and Plan Start: 03/10/23 10:34 Freq: Status: Active Protocol: Document 04/14/23 10:04 (Rec: 04/14/23 10:59 [id number]) Physical Therapy Assessment Goals Tandem Impairment Balance Impairment Pt able to grid casting machine operator helper supported tandem for 7 seconds. Short Term Goal (STG) Pt able to grid casting machine operator helper unsupported tandem stance for 15 seconds. 03/30/23: Achieved STG Duration 03/31/23-achieved Group Home Goal (LTG) Pt able to grid casting machine operator helper unsupported tandem for 25 seconds. LTG Duration 04/21/23 Balance Impairment Blanchard balance Impairment Pt with score of 39/56 on Blanchard balance. Short Term Goal (STG) Pt with 43/56 score on Blanchard Balance 03/30/23: Achieved 47/56 STG Duration 03/31/23-achieved Figure Model Goal (LTG) Pt with score of >46/56 on Blanchard balance. LTG Duration 04/21/23 30 sec STS squat Impairment Strength Impairment Pt able to complete 7 STS squats at hi-low table at 20 in height. Short Term Goal (STG) Pt able to complete 10 STS squats at surface at 20 in height. 03/30/23: Goal Achieved STG Duration 03/31/23-achieved Figure Model Goal (LTG) Pt able to complete 13 STS squats at hi-low table at height of 20 in. LTG Duration 04/21/23 Strength Impairment Strength Impairment Pt with gross LE strength of 4 -/5/ Short Term Goal (STG) Pt with gross LE strength of 4 /5. 03/30/23: Achieved 4/5 STG Duration 03/31/23-achieved Group Home Goal (LTG) Pt with gross LE strength of 4 +/5 LTG Duration 04/21/23 Assessment Summary Assessment Pt challenged with single leg balance this session, requiring fingertip assist. Reported mm fatigue post strengthening exercises this session. Continued balance progression with addition of obstacle course, verbal cues required for control. Physical Therapy Plan Frequency and Duration Frequency of Treatment 2x/Week Duration of treatment (weeks) 6 Plan of Care Start Date 03/10/23 Plan of Care End Date 04/21/23 Therapeutic Interventions Therapeutic Interventions Balance Training,Coordination Training,Gait Training,Home Exercise Program,Joint Mobilizations,Manual Therapy, Neuromuscular Re-education, Patient/Caregiver Education, Self-Care/Home Management,Soft Tissue Mobilization,Taping, Therapeutic Activities, Therapeutic Exercises Modalities Cold Pack/Ice Massage,Electric Stimulation,Hot Packs, Ultrasound Next Visit Focus/Plan Next Note Type Treatment Note Next Visit Plan Progress LE strength and balance as appropriate
--- NOTE | 2023-04-18 13:32 | PT.OTN ---
Current Diagnoses Unspecified sequelae of cerebral infarction (04/18/23) Physical Therapy Treatment Note PT-OP-A Visit Information Start: 03/10/23 10:34 Freq: Status: Active Protocol: Document 04/18/23 13:32 AM (Rec: 04/18/23 13:41 AM [id number]) Out-Patient Physical Therapy Visit Information Visit Information Visit Type Progress Note Visit Start Time 13:32 Visit Stop Time 12:13 Total Visit Minutes 41 Visit Number 11 PT-OP-B Current Condition Start: 03/10/23 10:34 Freq: Status: Active Protocol: Document 03/22/23 10:36 AM (Rec: 03/22/23 11:29 AM [id number]) Current Condition History of Current Condition Onset Date 02/08/23 Current Complaints Balance, falls History of Current Condition Pt reports that she has had 2 recent TIA's on February 08. Pt reports that she has had TIA's in the past and her brain MRI showed prior stroke. She went to the ER and they did not admit her at that time . Pt reports that she has been having issues with her balance for 6+ months prior to recent TIA. Pt also has macular degeneration and reports difficulty seeing in the dark. Pt reports that she had a fall and hit her head. Pt reports frequent falls. Pt reports difficulty with ascending/descending stairs. Pt reports difficulty with walking on uneven terrain. Pt reports that she has had 2-3 falls in the last few months. Pt reports getting in and out of tub is difficult. She thinks she might need a shower chair. Pt reports that she does not use an AD, though will often hang on to her when ambulating in the community. Prior Treatments and Tests Brain MRI Future Testing and Treatments Planned Neurologist PT-OP-C Subjective Start: 03/10/23 10:34 Freq: Status: Active Protocol: Document 04/18/23 13:32 AM (Rec: 04/18/23 13:41 AM [id number]) OP-PT Subjective Patient Comments Patient Comments Pt reports that she got her covid booster last tuesday and felt achy and unwell on Tuesday. Pt reports that she feels back to normal today. Pt reports that she feels that her strength and balance have improved since start of PT. PT-OP-D Balance Start: 03/10/23 10:34 Freq: Status: Active Protocol: Document 04/18/23 13:32 AM (Rec: 04/18/23 13:53 AM [id number]) Blanchard Balance Assessment Evaluation Sitting to Standing Ability Independent w/out Hands Unsupported Stance Safely- 2 minutes Sitting Unsupported, Feet on Floor Safely- 2 minutes Standing to Sitting Ability Safely, Minimal Hand Use Transfer Ability Safely, Minimal Hand Use Unsupported Stance- Eyes Closed Safely, 10 seconds Unsupported Stance- Eyes Open Independent, 1 minute Reaching Forward Standing Confidently, 10 inches Pick- Up Object From Floor Independent/Safe Look Behind Shoulder - Standing Shifts Weight Unilateral Turning 360 Degrees Turns Bilateral, < 4 secs Unsupported Stance, Alternating Feet on (I)- 8 Steps in 20 secs Stair Unsupported Tandem Stance Small Step- 30 seconds Unilateral Leg Stance Lifts Leg/Holds > 3 secs Total Score Blanchard Total Score (out of 56 points) 51 Blanchard Impairment Rating 1 to 19% Impaired (Score 45-55 ) PT-OP-E Functional Tests Start: 03/10/23 10:34 Freq: Status: Active Protocol: Document 04/18/23 13:32 AM (Rec: 04/18/23 13:53 AM [id number]) Functional Tests 30 Second Sit to Stand Test Score 10 Comments hi-low table at 20 in PT-OP-G Mobility & Gait Start: 03/10/23 10:34 Freq: Status: Active Protocol: Document 03/10/23 10:35 AM (Rec: 03/10/23 12:55 AM [id number]) OP Gait Assessment Gait Gait Assistance Required: Independent Assistive Devices Assistive Device None Comments Gait Comments femoral MR during gait PT-OP-M Strength Start: 03/10/23 10:34 Freq: Status: Active Protocol: Document 03/30/23 13:32 AM (Rec: 03/30/23 13:41 AM [id number]) Hip Strength Hip Manual Muscle Testing Left Flexion (L2) 4 Good Extension (S1) 4 Good Abduction 4 Good Adduction 4 Good Right Flexion (L2) 4 Good Extension (S1) 4 Good Abduction 4 Good Adduction 4 Good Knee Strength Knee Manual Muscle Testing Left Flexion (S2) 4 Good Extension (L3) 4 Good Right Flexion (S2) 4 Good Extension (L3) 4 Good PT-OP-Q Treatments Start: 03/10/23 10:34 Freq: Status: Active Protocol: Document 04/18/23 13:32 AM (Rec: 04/18/23 13:41 AM [id number]) Cardio Equipment Recumbent Elliptical (Biodex) Duration (Minutes) 6 Resistance 4 Seat Position 8 Therapeutic Exercises Standing Exercises Chair squat Standing Exercise Name Chair squat Neuro Re-Education Treatment Balance Activities Dynamic gait Details head turns side to side, up/ down, backwards walking, tandem walk, high knee Surface stable Comments CGA Hurdles Equipment hurdles in // bars Comments CGA Tandem stance Reps/Duration 2x30 sec ea LE PT-OP-T Assessment and Plan Start: 03/10/23 10:34 Freq: Status: Active Protocol: Document 04/18/23 13:32 AM (Rec: 04/18/23 13:41 AM [id number]) Physical Therapy Assessment Goals Tandem Impairment Balance Impairment Pt able to newsstand vendor supported tandem for 7 seconds. Short Term Goal (STG) Pt able to newsstand vendor unsupported tandem stance for 15 seconds. 03/30/23: Achieved STG Duration 03/31/23-achieved Nut Roaster Goal (LTG) Pt able to newsstand vendor unsupported tandem for 25 seconds. 04/18/23: Pt able to hold 15 seconds. LTG Duration 05/05/23 Balance Impairment Blanchard balance Impairment Pt with score of 39/56 on Blanchard balance. Short Term Goal (STG) Pt with 43/56 score on Blanchard Balance 03/30/23: Achieved 47/56 STG Duration 03/31/23-achieved Prison Goal (LTG) Pt with score of >46/56 on Blanchard balance. Goal Met: 51/56 LTG Duration 04/21/23-achieved 30 sec STS squat Impairment Strength Impairment Pt able to complete 7 STS squats at hi-low table at 20 in height. Short Term Goal (STG) Pt able to complete 10 STS squats at surface at 20 in height. 03/30/23: Goal Achieved STG Duration 03/31/23-achieved Prison Goal (LTG) Pt able to complete 13 STS squats at hi-low table at height of 20 in. 04/18/23: Progressing towards goal. Pt able to do 10 in 30 seconds. LTG Duration 05/05/23 Strength Impairment Strength Impairment Pt with gross LE strength of 4 -/5/ Short Term Goal (STG) Pt with gross LE strength of 4 /5. 03/30/23: Achieved 4/5 STG Duration 03/31/23-achieved Nut Roaster Goal (LTG) Pt with gross LE strength of 4 +/5 LTG Duration 05/05/23 Assessment Summary Assessment POC updated as pt is progressing towards LTG. Pt demonstrates improving balance , though continues to be challenged with dynamic gait activities. Pt demonstrates decreased pina and occasional path deviation with dynamic gait drills. Pt demonstrated knee valgus bilaterally with STS squats, which improved cueing and use of TB. Pt would benefit from continued PT to progress strength and balance to improve safety and tolerance to functional tasks. Physical Therapy Plan Frequency and Duration Frequency of Treatment 2x/Week Duration of treatment (weeks) 8 Plan of Care Start Date 03/10/23 Plan of Care End Date 05/05/23 Therapeutic Interventions Therapeutic Interventions Balance Training,Coordination Training,Gait Training,Home Exercise Program,Joint Mobilizations,Manual Therapy, Neuromuscular Re-education, Patient/Caregiver Education, Self-Care/Home Management,Soft Tissue Mobilization,Taping, Therapeutic Activities, Therapeutic Exercises Modalities Cold Pack/Ice Massage,Electric Stimulation,Hot Packs, Ultrasound Next Visit Focus/Plan Next Note Type Treatment Note Next Visit Plan Progress LE strength and balance as appropriate
--- NOTE | 2023-04-18 13:32 | PT.OPPOC ---
Physical, Occupational & Speech Therapy At [facility] Current Diagnoses Unspecified sequelae of cerebral infarction (04/18/23) Visit Care Team Role Provider Type Mara Carter MD Attending Provider Physician Family Provider Primary Care Provider Referring Provider Specialty: Family Practice Address: [address] [place] [address], [id number] Email: [email or web address] Plan Of Care PT-OP-T Assessment and Plan Start: 03/10/23 10:34 Freq: Status: Active Protocol: Document 04/18/23 13:32 AM (Rec: 04/18/23 13:41 AM [id number]) Physical Therapy Assessment Goals Tandem Impairment Balance Impairment Pt able to fire prevention engineer supported tandem for 7 seconds. Short Term Goal (STG) Pt able to fire prevention engineer unsupported tandem stance for 15 seconds. 03/30/23: Achieved STG Duration 03/31/23-achieved Typer Goal (LTG) Pt able to fire prevention engineer unsupported tandem for 25 seconds. 04/18/23: Pt able to hold 15 seconds. LTG Duration 05/05/23 Balance Impairment Blanchard balance Impairment Pt with score of 39/56 on Blanchard balance. Short Term Goal (STG) Pt with 43/56 score on Blanchard Balance 03/30/23: Achieved 47/56 STG Duration 03/31/23-achieved Typer Goal (LTG) Pt with score of >46/56 on Blanchard balance. Goal Met: 51/56 LTG Duration 04/21/23-achieved 30 sec STS squat Impairment Strength Impairment Pt able to complete 7 STS squats at hi-low table at 20 in height. Short Term Goal (STG) Pt able to complete 10 STS squats at surface at 20 in height. 03/30/23: Goal Achieved STG Duration 03/31/23-achieved Typer Goal (LTG) Pt able to complete 13 STS squats at hi-low table at height of 20 in. 04/18/23: Progressing towards goal. Pt able to do 10 in 30 seconds. LTG Duration 05/05/23 Strength Impairment Strength Impairment Pt with gross LE strength of 4 -/5/ Short Term Goal (STG) Pt with gross LE strength of 4 /5. 03/30/23: Achieved 4/5 STG Duration 03/31/23-achieved Residential Goal (LTG) Pt with gross LE strength of 4 +/5 LTG Duration 05/05/23 Assessment Summary Assessment POC updated as pt is progressing towards LTG. Pt demonstrates improving balance , though continues to be challenged with dynamic gait activities. Pt demonstrates decreased pina and occasional path deviation with dynamic gait drills. Pt demonstrated knee valgus bilaterally with STS squats, which improved cueing and use of TB. Pt would benefit from continued PT to progress strength and balance to improve safety and tolerance to functional tasks. Physical Therapy Plan Frequency and Duration Frequency of Treatment 2x/Week Duration of treatment (weeks) 8 Plan of Care Start Date 03/10/23 Plan of Care End Date 05/05/23 Therapeutic Interventions Therapeutic Interventions Balance Training,Coordination Training,Gait Training,Home Exercise Program,Joint Mobilizations,Manual Therapy, Neuromuscular Re-education, Patient/Caregiver Education, Self-Care/Home Management,Soft Tissue Mobilization,Taping, Therapeutic Activities, Therapeutic Exercises Modalities Cold Pack/Ice Massage,Electric Stimulation,Hot Packs, Ultrasound Next Visit Focus/Plan Next Note Type Treatment Note Next Visit Plan Progress LE strength and balance as appropriate Plan of Care Dates Plan of Care Start Date 03/10/23 Plan of Care End Date 05/05/23 Electronically Signed by: Leeanne Molina, PT 04/18/23 5614 If you are in agreement with this Plan of Care, please return a signed and dated copy. I have reviewed this Plan of Care and certify that the skilled therapy services above are required to meet the patient?s needs. Physician Signature Date Printed Name and Credentials Clinical Instructor Signature Printed Name and Credentials
--- NOTE | 2023-04-21 10:33 | PT.OTN ---
Current Diagnoses Unspecified sequelae of cerebral infarction (04/21/23) Physical Therapy Treatment Note PT-OP-A Visit Information Start: 03/10/23 10:34 Freq: Status: Active Protocol: Document 04/21/23 10:33 AM (Rec: 04/21/23 11:25 AM [id number]) Out-Patient Physical Therapy Visit Information Visit Information Visit Type Treatment Note Visit Start Time 10:33 Visit Stop Time 12:16 Total Visit Minutes 43 Visit Number 12 PT-OP-B Current Condition Start: 03/10/23 10:34 Freq: Status: Active Protocol: Document 03/22/23 10:36 AM (Rec: 03/22/23 11:29 AM [id number]) Current Condition History of Current Condition Onset Date 02/08/23 Current Complaints Balance, falls History of Current Condition Pt reports that she has had 2 recent TIA's on February 08. Pt reports that she has had TIA's in the past and her brain MRI showed prior stroke. She went to the ER and they did not admit her at that time . Pt reports that she has been having issues with her balance for 6+ months prior to recent TIA. Pt also has macular degeneration and reports difficulty seeing in the dark. Pt reports that she had a fall and hit her head. Pt reports frequent falls. Pt reports difficulty with ascending/descending stairs. Pt reports difficulty with walking on uneven terrain. Pt reports that she has had 2-3 falls in the last few months. Pt reports getting in and out of tub is difficult. She thinks she might need a shower chair. Pt reports that she does not use an AD, though will often hang on to her when ambulating in the community. Prior Treatments and Tests Brain MRI Future Testing and Treatments Planned Neurologist PT-OP-C Subjective Start: 03/10/23 10:34 Freq: Status: Active Protocol: Document 04/21/23 10:33 AM (Rec: 04/21/23 11:25 AM [id number]) OP-PT Subjective Patient Comments Patient Comments Pt reports feeling tired today , but otherwise doing well. PT-OP-D Balance Start: 03/10/23 10:34 Freq: Status: Active Protocol: Document 04/18/23 13:32 AM (Rec: 04/18/23 13:53 AM [id number]) Blanchard Balance Assessment Evaluation Sitting to Standing Ability Independent w/out Hands Unsupported Stance Safely- 2 minutes Sitting Unsupported, Feet on Floor Safely- 2 minutes Standing to Sitting Ability Safely, Minimal Hand Use Transfer Ability Safely, Minimal Hand Use Unsupported Stance- Eyes Closed Safely, 10 seconds Unsupported Stance- Eyes Open Independent, 1 minute Reaching Forward Standing Confidently, 10 inches Pick- Up Object From Floor Independent/Safe Look Behind Shoulder - Standing Shifts Weight Unilateral Turning 360 Degrees Turns Bilateral, < 4 secs Unsupported Stance, Alternating Feet on (I)- 8 Steps in 20 secs Stair Unsupported Tandem Stance Small Step- 30 seconds Unilateral Leg Stance Lifts Leg/Holds > 3 secs Total Score Blanchard Total Score (out of 56 points) 51 Blanchard Impairment Rating 1 to 19% Impaired (Score 45-55 ) PT-OP-E Functional Tests Start: 03/10/23 10:34 Freq: Status: Active Protocol: Document 04/18/23 13:32 AM (Rec: 04/18/23 13:53 AM [id number]) Functional Tests 30 Second Sit to Stand Test Score 10 Comments hi-low table at 20 in PT-OP-G Mobility & Gait Start: 03/10/23 10:34 Freq: Status: Active Protocol: Document 03/10/23 10:35 AM (Rec: 03/10/23 12:55 AM [id number]) OP Gait Assessment Gait Gait Assistance Required: Independent Assistive Devices Assistive Device None Comments Gait Comments femoral MR during gait PT-OP-M Strength Start: 03/10/23 10:34 Freq: Status: Active Protocol: Document 03/30/23 13:32 AM (Rec: 03/30/23 13:41 AM [id number]) Hip Strength Hip Manual Muscle Testing Left Flexion (L2) 4 Good Extension (S1) 4 Good Abduction 4 Good Adduction 4 Good Right Flexion (L2) 4 Good Extension (S1) 4 Good Abduction 4 Good Adduction 4 Good Knee Strength Knee Manual Muscle Testing Left Flexion (S2) 4 Good Extension (L3) 4 Good Right Flexion (S2) 4 Good Extension (L3) 4 Good PT-OP-Q Treatments Start: 03/10/23 10:34 Freq: Status: Active Protocol: Document 04/21/23 10:33 AM (Rec: 04/21/23 11:25 AM [id number]) Cardio Equipment Recumbent Elliptical (Biodex) Duration (Minutes) 6 Resistance 5 Seat Position 8 Therapeutic Exercises Standing Exercises Side step Side bilateral Resistance [place] Reps/Minutes 2x20 ft Comments cues for LE alignment, posture and looking fwd vs at feet hip extension Standing Exercise Name Standing hip extension Side bilateral Resistance peach TB Reps/Minutes 2x10 Comments cues for trunk control Hip abduction Standing Exercise Name Standing hip abduction Side bilateral Resistance [place] TB Equipment Used railing Reps/Minutes 2x10 Comments cues for trunk control Neuro Re-Education Treatment Balance Activities Clock Surface Stable Equipment clock yourself brian Comments CGA, Pt with more difficulty with bottom half of clock, particularly L bottom. Pt able to do 30 SPM Dynamic gait Details head turns side to side, up/ down, backwards walking, tandem walk, high knee Surface stable Comments CGA Hurdles Equipment hurdles Comments CGA PT-OP-T Assessment and Plan Start: 03/10/23 10:34 Freq: Status: Active Protocol: Document 04/21/23 10:33 AM (Rec: 04/21/23 11:25 AM [id number]) Physical Therapy Assessment Goals Tandem Impairment Balance Impairment Pt able to home furnishings sales representative supported tandem for 7 seconds. Short Term Goal (STG) Pt able to home furnishings sales representative unsupported tandem stance for 15 seconds. 03/30/23: Achieved STG Duration 03/31/23-achieved Javascript Ui Developer Goal (LTG) Pt able to home furnishings sales representative unsupported tandem for 25 seconds. 04/18/23: Pt able to hold 15 seconds. LTG Duration 05/05/23 Balance Impairment Blanchard balance Impairment Pt with score of 39/56 on Blanchard balance. Short Term Goal (STG) Pt with 43/56 score on Blanchard Balance 03/30/23: Achieved 47/56 STG Duration 03/31/23-achieved [facility] Goal (LTG) Pt with score of >46/56 on Blanchard balance. Goal Met: 51/56 LTG Duration 04/21/23-achieved 30 sec STS squat Impairment Strength Impairment Pt able to complete 7 STS squats at hi-low table at 20 in height. Short Term Goal (STG) Pt able to complete 10 STS squats at surface at 20 in height. 03/30/23: Goal Achieved STG Duration 03/31/23-achieved [facility] Goal (LTG) Pt able to complete 13 STS squats at hi-low table at height of 20 in. 04/18/23: Progressing towards goal. Pt able to do 10 in 30 seconds. LTG Duration 05/05/23 Strength Impairment Strength Impairment Pt with gross LE strength of 4 -/5/ Short Term Goal (STG) Pt with gross LE strength of 4 /5. 03/30/23: Achieved 4/5 STG Duration 03/31/23-achieved [facility] Goal (LTG) Pt with gross LE strength of 4 +/5 LTG Duration 05/05/23 Assessment Summary Assessment Pt demonstrated improved balance with hurdles in open space, with 1 LOB that needed correction by PT. Pt challenged with clock balance in busier enviroment with increase external stimuli. Pt with improved posterior weight shifting with repetition. Pt requires cueing for form with resisted hip strengthening, with tendency to compensate with trunk and hip flexors. Pt continues to be challenged with gait with head turn, demonstrating decreased pina, though no path deviation today. Physical Therapy Plan Frequency and Duration Frequency of Treatment 2x/Week Duration of treatment (weeks) 8 Plan of Care Start Date 03/10/23 Plan of Care End Date 05/05/23 Therapeutic Interventions Therapeutic Interventions Balance Training,Coordination Training,Gait Training,Home Exercise Program,Joint Mobilizations,Manual Therapy, Neuromuscular Re-education, Patient/Caregiver Education, Self-Care/Home Management,Soft Tissue Mobilization,Taping, Therapeutic Activities, Therapeutic Exercises Modalities Cold Pack/Ice Massage,Electric Stimulation,Hot Packs, Ultrasound Next Visit Focus/Plan Next Note Type Treatment Note Next Visit Plan Progress LE strength and balance as appropriate
--- NOTE | 2023-04-25 11:33 | PT.OTN ---
Current Diagnoses Unspecified sequelae of cerebral infarction (04/25/23) Physical Therapy Treatment Note PT-OP-A Visit Information Start: 03/10/23 10:34 Freq: Status: Active Protocol: Document 04/25/23 11:33 AM (Rec: 04/25/23 12:19 AM [id number]) Out-Patient Physical Therapy Visit Information Visit Information Visit Type Treatment Note Visit Start Time 11:33 Visit Stop Time 12:17 Total Visit Minutes 44 Visit Number 13 PT-OP-B Current Condition Start: 03/10/23 10:34 Freq: Status: Active Protocol: Document 03/22/23 10:36 AM (Rec: 03/22/23 11:29 AM [id number]) Current Condition History of Current Condition Onset Date 02/08/23 Current Complaints Balance, falls History of Current Condition Pt reports that she has had 2 recent TIA's on February 08. Pt reports that she has had TIA's in the past and her brain MRI showed prior stroke. She went to the ER and they did not admit her at that time . Pt reports that she has been having issues with her balance for 6+ months prior to recent TIA. Pt also has macular degeneration and reports difficulty seeing in the dark. Pt reports that she had a fall and hit her head. Pt reports frequent falls. Pt reports difficulty with ascending/descending stairs. Pt reports difficulty with walking on uneven terrain. Pt reports that she has had 2-3 falls in the last few months. Pt reports getting in and out of tub is difficult. She thinks she might need a shower chair. Pt reports that she does not use an AD, though will often hang on to her when ambulating in the community. Prior Treatments and Tests Brain MRI Future Testing and Treatments Planned Neurologist PT-OP-C Subjective Start: 03/10/23 10:34 Freq: Status: Active Protocol: Document 04/25/23 11:33 AM (Rec: 04/25/23 12:19 AM [id number]) OP-PT Subjective Patient Comments Patient Comments No new concerns today. PT-OP-D Balance Start: 03/10/23 10:34 Freq: Status: Active Protocol: Document 04/18/23 13:32 AM (Rec: 04/18/23 13:53 AM [id number]) Blanchard Balance Assessment Evaluation Sitting to Standing Ability Independent w/out Hands Unsupported Stance Safely- 2 minutes Sitting Unsupported, Feet on Floor Safely- 2 minutes Standing to Sitting Ability Safely, Minimal Hand Use Transfer Ability Safely, Minimal Hand Use Unsupported Stance- Eyes Closed Safely, 10 seconds Unsupported Stance- Eyes Open Independent, 1 minute Reaching Forward Standing Confidently, 10 inches Pick- Up Object From Floor Independent/Safe Look Behind Shoulder - Standing Shifts Weight Unilateral Turning 360 Degrees Turns Bilateral, < 4 secs Unsupported Stance, Alternating Feet on (I)- 8 Steps in 20 secs Stair Unsupported Tandem Stance Small Step- 30 seconds Unilateral Leg Stance Lifts Leg/Holds > 3 secs Total Score Blanchard Total Score (out of 56 points) 51 Blanchard Impairment Rating 1 to 19% Impaired (Score 45-55 ) PT-OP-E Functional Tests Start: 03/10/23 10:34 Freq: Status: Active Protocol: Document 04/18/23 13:32 AM (Rec: 04/18/23 13:53 AM [id number]) Functional Tests 30 Second Sit to Stand Test Score 10 Comments hi-low table at 20 in PT-OP-G Mobility & Gait Start: 03/10/23 10:34 Freq: Status: Active Protocol: Document 03/10/23 10:35 AM (Rec: 03/10/23 12:55 AM [id number]) OP Gait Assessment Gait Gait Assistance Required: Independent Assistive Devices Assistive Device None Comments Gait Comments femoral MR during gait PT-OP-M Strength Start: 03/10/23 10:34 Freq: Status: Active Protocol: Document 03/30/23 13:32 AM (Rec: 03/30/23 13:41 AM [id number]) Hip Strength Hip Manual Muscle Testing Left Flexion (L2) 4 Good Extension (S1) 4 Good Abduction 4 Good Adduction 4 Good Right Flexion (L2) 4 Good Extension (S1) 4 Good Abduction 4 Good Adduction 4 Good Knee Strength Knee Manual Muscle Testing Left Flexion (S2) 4 Good Extension (L3) 4 Good Right Flexion (S2) 4 Good Extension (L3) 4 Good PT-OP-Q Treatments Start: 03/10/23 10:34 Freq: Status: Active Protocol: Document 04/25/23 11:33 AM (Rec: 04/25/23 12:19 AM [id number]) Cardio Equipment Recumbent Bicycle Duration (Minutes) 5 Resistance 5 Seat Position 2 Gym Equipment Shuttle Recovery Unilateral Squats Resistance 37# Shuttle Recovery Platform Stable Reps/Time x30 sec ea Bilateral Squats Resistance 50# (2 navy)-62# Shuttle Recovery Platform Stable Reps/Time 2x1 min Therapeutic Exercises Standing Exercises Hip abduction Standing Exercise Name Standing hip abduction Side bilateral Resistance [place] TB Equipment Used railing Reps/Minutes 2x10 Comments cues for trunk control Neuro Re-Education Treatment Balance Activities Step taps Equipment 6 in Reps/Duration x1 min Dynamic gait Details head turns side to side, up/ down, backwards walking, EC, high knee Surface stable Comments CGA Wobble board Details fwd/back, side to side Comments with head turns, SBA NBOS Details on foam, EC semi tandem Details on foam with head turns Reps/Duration 2x30 sec PT-OP-T Assessment and Plan Start: 03/10/23 10:34 Freq: Status: Active Protocol: Document 04/25/23 11:33 AM (Rec: 04/25/23 12:19 AM [id number]) Physical Therapy Assessment Goals Tandem Impairment Balance Impairment Pt able to business change manager supported tandem for 7 seconds. Short Term Goal (STG) Pt able to business change manager unsupported tandem stance for 15 seconds. 03/30/23: Achieved STG Duration 03/31/23-achieved Group Home Goal (LTG) Pt able to business change manager unsupported tandem for 25 seconds. 04/18/23: Pt able to hold 15 seconds. LTG Duration 05/05/23 Balance Impairment Blanchard balance Impairment Pt with score of 39/56 on Blanchard balance. Short Term Goal (STG) Pt with 43/56 score on Blanchard Balance 03/30/23: Achieved 47/56 STG Duration 03/31/23-achieved Group Home Goal (LTG) Pt with score of >46/56 on Blanchard balance. Goal Met: 51/56 LTG Duration 04/21/23-achieved 30 sec STS squat Impairment Strength Impairment Pt able to complete 7 STS squats at hi-low table at 20 in height. Short Term Goal (STG) Pt able to complete 10 STS squats at surface at 20 in height. 03/30/23: Goal Achieved STG Duration 03/31/23-achieved Physics Instructor Goal (LTG) Pt able to complete 13 STS squats at hi-low table at height of 20 in. 04/18/23: Progressing towards goal. Pt able to do 10 in 30 seconds. LTG Duration 05/05/23 Strength Impairment Strength Impairment Pt with gross LE strength of 4 -/5/ Short Term Goal (STG) Pt with gross LE strength of 4 /5. 03/30/23: Achieved 4/5 STG Duration 03/31/23-achieved Physics Instructor Goal (LTG) Pt with gross LE strength of 4 +/5 LTG Duration 05/05/23 Assessment Summary Assessment Pt tolerated PRE well today. Pt with rpeorted fatigue of LE with shuttle squats. Pt continues to be challenged with gait drills when vision is altered, with patient demonstrating decrease pina and path deviation. Pt would benefit from continued PT to progress strength and balance as tolerated. Physical Therapy Plan Frequency and Duration Frequency of Treatment 2x/Week Duration of treatment (weeks) 8 Plan of Care Start Date 03/10/23 Plan of Care End Date 05/05/23 Therapeutic Interventions Therapeutic Interventions Balance Training,Coordination Training,Gait Training,Home Exercise Program,Joint Mobilizations,Manual Therapy, Neuromuscular Re-education, Patient/Caregiver Education, Self-Care/Home Management,Soft Tissue Mobilization,Taping, Therapeutic Activities, Therapeutic Exercises Modalities Cold Pack/Ice Massage,Electric Stimulation,Hot Packs, Ultrasound Next Visit Focus/Plan Next Note Type Treatment Note Next Visit Plan Progress LE strength and balance
--- NOTE | 2023-04-28 10:37 | PT.OTN ---
Current Diagnoses Unspecified sequelae of cerebral infarction (04/28/23) Physical Therapy Treatment Note PT-OP-A Visit Information Start: 03/10/23 10:34 Freq: Status: Active Protocol: Document 04/28/23 10:37 AM (Rec: 04/28/23 11:22 AM [id number]) Out-Patient Physical Therapy Visit Information Visit Information Visit Type Treatment Note Visit Start Time 10:37 Visit Stop Time 11:18 Total Visit Minutes 41 Visit Number 14 PT-OP-B Current Condition Start: 03/10/23 10:34 Freq: Status: Active Protocol: Document 03/22/23 10:36 AM (Rec: 03/22/23 11:29 AM [id number]) Current Condition History of Current Condition Onset Date 02/08/23 Current Complaints Balance, falls History of Current Condition Pt reports that she has had 2 recent TIA's on February 08. Pt reports that she has had TIA's in the past and her brain MRI showed prior stroke. She went to the ER and they did not admit her at that time . Pt reports that she has been having issues with her balance for 6+ months prior to recent TIA. Pt also has macular degeneration and reports difficulty seeing in the dark. Pt reports that she had a fall and hit her head. Pt reports frequent falls. Pt reports difficulty with ascending/descending stairs. Pt reports difficulty with walking on uneven terrain. Pt reports that she has had 2-3 falls in the last few months. Pt reports getting in and out of tub is difficult. She thinks she might need a shower chair. Pt reports that she does not use an AD, though will often hang on to her when ambulating in the community. Prior Treatments and Tests Brain MRI Future Testing and Treatments Planned Neurologist PT-OP-C Subjective Start: 03/10/23 10:34 Freq: Status: Active Protocol: Document 04/28/23 10:37 AM (Rec: 04/28/23 11:22 AM [id number]) OP-PT Subjective Patient Comments Patient Comments Pt reports that she feels stiff today from doing yard work. PT-OP-D Balance Start: 03/10/23 10:34 Freq: Status: Active Protocol: Document 04/18/23 13:32 AM (Rec: 04/18/23 13:53 AM [id number]) Blanchard Balance Assessment Evaluation Sitting to Standing Ability Independent w/out Hands Unsupported Stance Safely- 2 minutes Sitting Unsupported, Feet on Floor Safely- 2 minutes Standing to Sitting Ability Safely, Minimal Hand Use Transfer Ability Safely, Minimal Hand Use Unsupported Stance- Eyes Closed Safely, 10 seconds Unsupported Stance- Eyes Open Independent, 1 minute Reaching Forward Standing Confidently, 10 inches Pick- Up Object From Floor Independent/Safe Look Behind Shoulder - Standing Shifts Weight Unilateral Turning 360 Degrees Turns Bilateral, < 4 secs Unsupported Stance, Alternating Feet on (I)- 8 Steps in 20 secs Stair Unsupported Tandem Stance Small Step- 30 seconds Unilateral Leg Stance Lifts Leg/Holds > 3 secs Total Score Blanchard Total Score (out of 56 points) 51 Blanchard Impairment Rating 1 to 19% Impaired (Score 45-55 ) PT-OP-E Functional Tests Start: 03/10/23 10:34 Freq: Status: Active Protocol: Document 04/18/23 13:32 AM (Rec: 04/18/23 13:53 AM [id number]) Functional Tests 30 Second Sit to Stand Test Score 10 Comments hi-low table at 20 in PT-OP-G Mobility & Gait Start: 03/10/23 10:34 Freq: Status: Active Protocol: Document 03/10/23 10:35 AM (Rec: 03/10/23 12:55 AM [id number]) OP Gait Assessment Gait Gait Assistance Required: Independent Assistive Devices Assistive Device None Comments Gait Comments femoral MR during gait PT-OP-M Strength Start: 03/10/23 10:34 Freq: Status: Active Protocol: Document 03/30/23 13:32 AM (Rec: 03/30/23 13:41 AM [id number]) Hip Strength Hip Manual Muscle Testing Left Flexion (L2) 4 Good Extension (S1) 4 Good Abduction 4 Good Adduction 4 Good Right Flexion (L2) 4 Good Extension (S1) 4 Good Abduction 4 Good Adduction 4 Good Knee Strength Knee Manual Muscle Testing Left Flexion (S2) 4 Good Extension (L3) 4 Good Right Flexion (S2) 4 Good Extension (L3) 4 Good PT-OP-Q Treatments Start: 03/10/23 10:34 Freq: Status: Active Protocol: Document 04/28/23 10:37 AM (Rec: 04/28/23 11:22 AM [id number]) Cardio Equipment Recumbent Elliptical (Biodex) Duration (Minutes) 6 Resistance 5 Seat Position 8 Therapeutic Exercises Standing Exercises Chair squat Standing Exercise Name hurst chair+ blue foam Reps/Minutes 2x10 Neuro Re-Education Treatment Balance Activities Obstacle Course Details stepping over hurdles and balance pads in // bars Equipment // bars, hurdles, balance pads Comments CGA Clock Surface Stable Equipment clock yourself brian Comments CGA Dynamic gait Details head turns side to side, up/ down, backwards walking, EC, high knee Surface stable Comments CGA Tandem walking Details tandem walking Hurdles Details leading R, leading L, alternating with foam Equipment hurdles Comments CGA Tandem stance Equipment // bars Reps/Duration 2x30 sec ea LE PT-OP-T Assessment and Plan Start: 03/10/23 10:34 Freq: Status: Active Protocol: Document 04/28/23 10:37 AM (Rec: 04/28/23 11:22 AM [id number]) Physical Therapy Assessment Goals Tandem Impairment Balance Impairment Pt able to standpipe tender supported tandem for 7 seconds. Short Term Goal (STG) Pt able to standpipe tender unsupported tandem stance for 15 seconds. 03/30/23: Achieved STG Duration 03/31/23-achieved Care Home Goal (LTG) Pt able to standpipe tender unsupported tandem for 25 seconds. 04/18/23: Pt able to hold 15 seconds. LTG Duration 05/05/23 Balance Impairment Blanchard balance Impairment Pt with score of 39/56 on Blanchard balance. Short Term Goal (STG) Pt with 43/56 score on Blanchard Balance 03/30/23: Achieved 47/56 STG Duration 03/31/23-achieved Supervisor Of Operations Goal (LTG) Pt with score of >46/56 on Blanchard balance. Goal Met: 51/56 LTG Duration 04/21/23-achieved 30 sec STS squat Impairment Strength Impairment Pt able to complete 7 STS squats at hi-low table at 20 in height. Short Term Goal (STG) Pt able to complete 10 STS squats at surface at 20 in height. 03/30/23: Goal Achieved STG Duration 03/31/23-achieved Care Home Goal (LTG) Pt able to complete 13 STS squats at hi-low table at height of 20 in. 04/18/23: Progressing towards goal. Pt able to do 10 in 30 seconds. LTG Duration 05/05/23 Strength Impairment Strength Impairment Pt with gross LE strength of 4 -/5/ Short Term Goal (STG) Pt with gross LE strength of 4 /5. 03/30/23: Achieved 4/5 STG Duration 03/31/23-achieved Supervisor Of Operations Goal (LTG) Pt with gross LE strength of 4 +/5 LTG Duration 05/05/23 Assessment Summary Assessment Pt with increased c/o fatigue with exercise today. Pt continues to be challenged with ambulating with head turns or balance when vision is altered. Pt demonstrated improved lower L quarter with clock drill today compared to previous sessions. Pt will return to PT next week to reassess and update POC if appropriate. Physical Therapy Plan Frequency and Duration Frequency of Treatment 2x/Week Duration of treatment (weeks) 8 Plan of Care Start Date 03/10/23 Plan of Care End Date 05/05/23 Therapeutic Interventions Therapeutic Interventions Balance Training,Coordination Training,Gait Training,Home Exercise Program,Joint Mobilizations,Manual Therapy, Neuromuscular Re-education, Patient/Caregiver Education, Self-Care/Home Management,Soft Tissue Mobilization,Taping, Therapeutic Activities, Therapeutic Exercises Modalities Cold Pack/Ice Massage,Electric Stimulation,Hot Packs, Ultrasound Next Visit Focus/Plan Next Note Type Progress Note Next Visit Plan reassess and update POC
--- NOTE | 2023-05-02 11:35 | PT.OPPOC ---
Physical, Occupational & Speech Therapy At [facility] Current Diagnoses Unspecified sequelae of cerebral infarction (05/02/23) Visit Care Team Role Provider Type Mara Carter MD Attending Provider Physician Family Provider Primary Care Provider Referring Provider Specialty: Family Practice Address: [address] [place] [address], [id number] Email: [email or web address] Plan Of Care PT-OP-T Assessment and Plan Start: 03/10/23 10:34 Freq: Status: Active Protocol: Document 05/02/23 11:35 AM (Rec: 05/03/23 13:08 AM [id number]) Physical Therapy Assessment Goals SLS Nursing Home Goal (LTG) Pt able to SLS for 10 seconds cleo LTG Duration 05/19/23 HEP Director Of Graduate Medical Education Goal (LTG) Pt independent with HEP or gym program LTG Duration 05/19/23 Tandem Impairment Balance Impairment Pt able to mainspring barrel assembly cleaner supported tandem for 7 seconds. Short Term Goal (STG) Pt able to mainspring barrel assembly cleaner unsupported tandem stance for 15 seconds. 03/30/23: Achieved STG Duration 03/31/23-achieved Director Of Graduate Medical Education Goal (LTG) Pt able to mainspring barrel assembly cleaner unsupported tandem for 25 seconds. 04/18/23: Pt able to hold 15 seconds. 05/02/23: Goal met. Pt able to hold 40 sec cleo LTG Duration 05/05/23 Balance Impairment Blanchard balance Impairment Pt with score of 39/56 on Blanchard balance. Short Term Goal (STG) Pt with 43/56 score on Blanchard Balance 03/30/23: Achieved 47/56 STG Duration 03/31/23-achieved Director Of Graduate Medical Education Goal (LTG) Pt with score of >46/56 on Blanchard balance. Goal Met: 51/56 LTG Duration 04/21/23-achieved 30 sec STS squat Impairment Strength Impairment Pt able to complete 7 STS squats at hi-low table at 20 in height. Short Term Goal (STG) Pt able to complete 10 STS squats at surface at 20 in height. 03/30/23: Goal Achieved STG Duration 03/31/23-achieved Director Of Graduate Medical Education Goal (LTG) Pt able to complete 13 STS squats at hi-low table at height of 20 in. 04/18/23: Progressing towards goal. Pt able to do 10 in 30 seconds. LTG Duration 05/19/23 Strength Impairment Strength Impairment Pt with gross LE strength of 4 -/5/ Short Term Goal (STG) Pt with gross LE strength of 4 /5. 03/30/23: Achieved 4/5 STG Duration 03/31/23-achieved Director Of Graduate Medical Education Goal (LTG) Pt with gross LE strength of 4 +/5 05/02/23: Pt with 4/5 LE gross strength LTG Duration 05/19/23 Assessment Summary Assessment Pt demonstrates progress towards goals, meeting tandem stance goal today. Pt continues to be challenged with ambulation and gait drills when vision is altered, demonstrating decrease pina and path deviation. Pt with improved LE alignment with STS squats, demonstratring decrease in knee valgus since start of PT. Pt would benefit from continued PT to progress independent strengthening program and balance to improve safety with functional tasks. Physical Therapy Plan Frequency and Duration Frequency of Treatment 2x/Week Duration of treatment (weeks) 10 Plan of Care Start Date 03/10/23 Plan of Care End Date 05/19/23 Therapeutic Interventions Therapeutic Interventions Balance Training,Coordination Training,Gait Training,Home Exercise Program,Joint Mobilizations,Manual Therapy, Neuromuscular Re-education, Patient/Caregiver Education, Self-Care/Home Management,Soft Tissue Mobilization,Taping, Therapeutic Activities, Therapeutic Exercises Modalities Cold Pack/Ice Massage,Electric Stimulation,Hot Packs, Ultrasound Next Visit Focus/Plan Next Note Type Treatment Note Next Visit Plan progress HEP, balance and dynamic gait activities. Plan of Care Dates Plan of Care Start Date 03/10/23 Plan of Care End Date 05/19/23 Electronically Signed by: Leeanne Molina, PT 05/03/23 [id number] If you are in agreement with this Plan of Care, please return a signed and dated copy. I have reviewed this Plan of Care and certify that the skilled therapy services above are required to meet the patient?s needs. Physician Signature Date Printed Name and Credentials Clinical Instructor Signature Printed Name and Credentials
--- NOTE | 2023-05-02 11:35 | PT.OPPOC ---
Physical, Occupational & Speech Therapy At [facility] Current Diagnoses Unspecified sequelae of cerebral infarction (05/02/23) Visit Care Team Role Provider Type Mara Carter MD Attending Provider Physician Family Provider Primary Care Provider Referring Provider Specialty: Family Practice Address: [address] [place] [address], [phone] Email: [email or web address] Plan Of Care PT-OP-T Assessment and Plan Start: 03/10/23 10:34 Freq: Status: Active Protocol: Document 05/02/23 11:35 AM (Rec: 05/03/23 13:08 AM [id number]) Physical Therapy Assessment Goals SLS Alf Goal (LTG) Pt able to SLS for 10 seconds cleo LTG Duration 05/19/23 HEP Farm Equipment Service Technician Goal (LTG) Pt independent with HEP or gym program LTG Duration 05/19/23 Tandem Impairment Balance Impairment Pt able to grain drier supported tandem for 7 seconds. Short Term Goal (STG) Pt able to grain drier unsupported tandem stance for 15 seconds. 03/30/23: Achieved STG Duration 03/31/23-achieved Farm Equipment Service Technician Goal (LTG) Pt able to grain drier unsupported tandem for 25 seconds. 04/18/23: Pt able to hold 15 seconds. 05/02/23: Goal met. Pt able to hold 40 sec cleo LTG Duration 05/05/23 Balance Impairment Blanchard balance Impairment Pt with score of 39/56 on Blanchard balance. Short Term Goal (STG) Pt with 43/56 score on Blanchard Balance 03/30/23: Achieved 47/56 STG Duration 03/31/23-achieved Farm Equipment Service Technician Goal (LTG) Pt with score of >46/56 on Blanchard balance. Goal Met: 51/56 LTG Duration 04/21/23-achieved 30 sec STS squat Impairment Strength Impairment Pt able to complete 7 STS squats at hi-low table at 20 in height. Short Term Goal (STG) Pt able to complete 10 STS squats at surface at 20 in height. 03/30/23: Goal Achieved STG Duration 03/31/23-achieved Farm Equipment Service Technician Goal (LTG) Pt able to complete 13 STS squats at hi-low table at height of 20 in. 04/18/23: Progressing towards goal. Pt able to do 10 in 30 seconds. LTG Duration 05/19/23 Strength Impairment Strength Impairment Pt with gross LE strength of 4 -/5/ Short Term Goal (STG) Pt with gross LE strength of 4 /5. 03/30/23: Achieved 4/5 STG Duration 03/31/23-achieved Farm Equipment Service Technician Goal (LTG) Pt with gross LE strength of 4 +/5 05/02/23: Pt with 4/5 LE gross strength LTG Duration 05/19/23 Assessment Summary Assessment Pt demonstrates progress towards goals, meeting tandem stance goal today. Pt continues to be challenged with ambulation and gait drills when vision is altered, demonstrating decrease pina and path deviation. Pt with improved LE alignment with STS squats, demonstratring decrease in knee valgus since start of PT. Pt would benefit from continued PT to progress independent strengthening program and balance to improve safety with functional tasks. Physical Therapy Plan Frequency and Duration Frequency of Treatment 2x/Week Duration of treatment (weeks) 10 Plan of Care Start Date 03/10/23 Plan of Care End Date 05/19/23 Therapeutic Interventions Therapeutic Interventions Balance Training,Coordination Training,Gait Training,Home Exercise Program,Joint Mobilizations,Manual Therapy, Neuromuscular Re-education, Patient/Caregiver Education, Self-Care/Home Management,Soft Tissue Mobilization,Taping, Therapeutic Activities, Therapeutic Exercises Modalities Cold Pack/Ice Massage,Electric Stimulation,Hot Packs, Ultrasound Next Visit Focus/Plan Next Note Type Treatment Note Next Visit Plan progress HEP, balance and dynamic gait activities. Plan of Care Dates Plan of Care Start Date 03/10/23 Plan of Care End Date 05/19/23 Electronically Signed by: Leeanne Molina, PT 05/03/23 0340 If you are in agreement with this Plan of Care, please return a signed and dated copy. I have reviewed this Plan of Care and certify that the skilled therapy services above are required to meet the patient?s needs. Physician Signature Date Printed Name and Credentials Clinical Instructor Signature Printed Name and Credentials
--- NOTE | 2023-05-02 11:35 | PT.OTN ---
Addendum entered and electronically signed by Leeanne Molina, PT 05/09/23 13:41: Assessment: Pt given updated HEP today. Pt instructed to do HEP tomorrow and will finalize next tx. Pt demonstrates continued fatigue with exercises. Pt with difficulty maintaining erect trunk with resisted abduction/extension with improved form with AROM only. Pt demonstrates improved LE alignment with STS squats compared to IE. Pt will be reassessed next session and d/c if appropriate. Original Note: Current Diagnoses Unspecified sequelae of cerebral infarction (05/02/23) Physical Therapy Treatment Note PT-OP-A Visit Information Start: 03/10/23 10:34 Freq: Status: Active Protocol: Document 05/02/23 11:35 AM (Rec: 05/03/23 13:08 AM [id number]) Out-Patient Physical Therapy Visit Information Visit Information Visit Type Progress Note Visit Start Time 11:35 Visit Stop Time 12:16 Total Visit Minutes 41 Visit Number 15 PT-OP-B Current Condition Start: 03/10/23 10:34 Freq: Status: Active Protocol: Document 03/22/23 10:36 AM (Rec: 03/22/23 11:29 AM [id number]) Current Condition History of Current Condition Onset Date 02/08/23 Current Complaints Balance, falls History of Current Condition Pt reports that she has had 2 recent TIA's on February 08. Pt reports that she has had TIA's in the past and her brain MRI showed prior stroke. She went to the ER and they did not admit her at that time . Pt reports that she has been having issues with her balance for 6+ months prior to recent TIA. Pt also has macular degeneration and reports difficulty seeing in the dark. Pt reports that she had a fall and hit her head. Pt reports frequent falls. Pt reports difficulty with ascending/descending stairs. Pt reports difficulty with walking on uneven terrain. Pt reports that she has had 2-3 falls in the last few months. Pt reports getting in and out of tub is difficult. She thinks she might need a shower chair. Pt reports that she does not use an AD, though will often hang on to her when ambulating in the community. Prior Treatments and Tests Brain MRI Future Testing and Treatments Planned Neurologist PT-OP-C Subjective Start: 03/10/23 10:34 Freq: Status: Active Protocol: Document 05/02/23 11:35 AM (Rec: 05/03/23 13:08 AM [id number]) OP-PT Subjective Patient Comments Patient Comments Pt reports that she feels that she is walking better since starting PT. Pt reports that she is going to look into joining a gym to see if it will be the right fit for her. Pt reports 1 episode of dizziness in hte last few weeks and it happened at the grocery store. PT-OP-D Balance Start: 03/10/23 10:34 Freq: Status: Active Protocol: Document 05/02/23 11:35 AM (Rec: 05/03/23 13:08 AM [id number]) Balance Tests Tandem Tandem Standing 40 sec bilaterally PT-OP-E Functional Tests Start: 03/10/23 10:34 Freq: Status: Active Protocol: Document 05/02/23 11:35 AM (Rec: 05/03/23 13:08 AM [id number]) Functional Tests 30 Second Sit to Stand Test Score 10 Comments hi-low table at 20 in PT-OP-G Mobility & Gait Start: 03/10/23 10:34 Freq: Status: Active Protocol: Document 03/10/23 10:35 AM (Rec: 03/10/23 12:55 AM [id number]) OP Gait Assessment Gait Gait Assistance Required: Independent Assistive Devices Assistive Device None Comments Gait Comments femoral MR during gait PT-OP-M Strength Start: 03/10/23 10:34 Freq: Status: Active Protocol: Document 03/30/23 13:32 AM (Rec: 03/30/23 13:41 AM [id number]) Hip Strength Hip Manual Muscle Testing Left Flexion (L2) 4 Good Extension (S1) 4 Good Abduction 4 Good Adduction 4 Good Right Flexion (L2) 4 Good Extension (S1) 4 Good Abduction 4 Good Adduction 4 Good Knee Strength Knee Manual Muscle Testing Left Flexion (S2) 4 Good Extension (L3) 4 Good Right Flexion (S2) 4 Good Extension (L3) 4 Good PT-OP-Q Treatments Start: 03/10/23 10:34 Freq: Status: Active Protocol: Document 05/02/23 11:35 AM (Rec: 05/03/23 13:08 AM [id number]) Therapeutic Exercises Standing Exercises Chair squat Standing Exercise Name hurst chair Reps/Minutes 2x10 Neuro Re-Education Treatment Balance Activities Dynamic gait Details head turns side to side, up/ down, backwards walking, EC, high knee Surface stable Comments CGA Tandem stance Equipment // bars Reps/Duration 2x30 sec ea LE PT-OP-T Assessment and Plan Start: 03/10/23 10:34 Freq: Status: Active Protocol: Document 05/02/23 11:35 AM (Rec: 05/03/23 13:08 AM [id number]) Physical Therapy Assessment Goals SLS Stitch Bonding Machine Tender Goal (LTG) Pt able to SLS for 10 seconds cleo LTG Duration 05/19/23 HEP Stitch Bonding Machine Tender Goal (LTG) Pt independent with HEP or gym program LTG Duration 05/19/23 Tandem Impairment Balance Impairment Pt able to tubing drier supported tandem for 7 seconds. Short Term Goal (STG) Pt able to tubing drier unsupported tandem stance for 15 seconds. 03/30/23: Achieved STG Duration 03/31/23-achieved Stitch Bonding Machine Tender Goal (LTG) Pt able to tubing drier unsupported tandem for 25 seconds. 04/18/23: Pt able to hold 15 seconds. 05/02/23: Goal met. Pt able to hold 40 sec cleo LTG Duration 05/05/23 Balance Impairment Blanchard balance Impairment Pt with score of 39/56 on Blanchard balance. Short Term Goal (STG) Pt with 43/56 score on Blanchard Balance 03/30/23: Achieved 47/56 STG Duration 03/31/23-achieved Half-Way Goal (LTG) Pt with score of >46/56 on Blanchard balance. Goal Met: 51/56 LTG Duration 04/21/23-achieved 30 sec STS squat Impairment Strength Impairment Pt able to complete 7 STS squats at hi-low table at 20 in height. Short Term Goal (STG) Pt able to complete 10 STS squats at surface at 20 in height. 03/30/23: Goal Achieved STG Duration 03/31/23-achieved Half-Way Goal (LTG) Pt able to complete 13 STS squats at hi-low table at height of 20 in. 04/18/23: Progressing towards goal. Pt able to do 10 in 30 seconds. LTG Duration 05/19/23 Strength Impairment Strength Impairment Pt with gross LE strength of 4 -/5/ Short Term Goal (STG) Pt with gross LE strength of 4 /5. 03/30/23: Achieved 4/5 STG Duration 03/31/23-achieved Half-Way Goal (LTG) Pt with gross LE strength of 4 +/5 05/02/23: Pt with 4/5 LE gross strength LTG Duration 05/19/23 Assessment Summary Assessment Pt demonstrates progress towards goals, meeting tandem stance goal today. Pt continues to be challenged with ambulation and gait drills when vision is altered, demonstrating decrease pina and path deviation. Pt with improved LE alignment with STS squats, demonstratring decrease in knee valgus since start of PT. Pt would benefit from continued PT to progress independent strengthening program and balance to improve safety with functional tasks. Physical Therapy Plan Frequency and Duration Frequency of Treatment 2x/Week Duration of treatment (weeks) 10 Plan of Care Start Date 03/10/23 Plan of Care End Date 05/19/23 Therapeutic Interventions Therapeutic Interventions Balance Training,Coordination Training,Gait Training,Home Exercise Program,Joint Mobilizations,Manual Therapy, Neuromuscular Re-education, Patient/Caregiver Education, Self-Care/Home Management,Soft Tissue Mobilization,Taping, Therapeutic Activities, Therapeutic Exercises Modalities Cold Pack/Ice Massage,Electric Stimulation,Hot Packs, Ultrasound Next Visit Focus/Plan Next Note Type Treatment Note Next Visit Plan progress HEP, balance and dynamic gait activities.
--- NOTE | 2023-05-09 12:19 | PT.OTN ---
Current Diagnoses Unspecified sequelae of cerebral infarction (05/09/23) Physical Therapy Treatment Note PT-OP-A Visit Information Start: 03/10/23 10:34 Freq: Status: Active Protocol: Document 05/09/23 12:19 AM (Rec: 05/09/23 13:39 AM [id number]) Out-Patient Physical Therapy Visit Information Visit Information Visit Type Treatment Note Visit Start Time 12:19 Visit Stop Time 13:01 Total Visit Minutes 42 Visit Number 17 PT-OP-B Current Condition Start: 03/10/23 10:34 Freq: Status: Active Protocol: Document 03/22/23 10:36 AM (Rec: 03/22/23 11:29 AM [id number]) Current Condition History of Current Condition Onset Date 02/08/23 Current Complaints Balance, falls History of Current Condition Pt reports that she has had 2 recent TIA's on February 08. Pt reports that she has had TIA's in the past and her brain MRI showed prior stroke. She went to the ER and they did not admit her at that time . Pt reports that she has been having issues with her balance for 6+ months prior to recent TIA. Pt also has macular degeneration and reports difficulty seeing in the dark. Pt reports that she had a fall and hit her head. Pt reports frequent falls. Pt reports difficulty with ascending/descending stairs. Pt reports difficulty with walking on uneven terrain. Pt reports that she has had 2-3 falls in the last few months. Pt reports getting in and out of tub is difficult. She thinks she might need a shower chair. Pt reports that she does not use an AD, though will often hang on to her when ambulating in the community. Prior Treatments and Tests Brain MRI Future Testing and Treatments Planned Neurologist PT-OP-C Subjective Start: 03/10/23 10:34 Freq: Status: Active Protocol: Document 05/09/23 12:19 AM (Rec: 05/09/23 13:39 AM [id number]) OP-PT Subjective Patient Comments Patient Comments Pt reports that she has not yet checked into a gym membership, but planning to this week. PT-OP-D Balance Start: 03/10/23 10:34 Freq: Status: Active Protocol: Document 05/02/23 11:35 AM (Rec: 05/03/23 13:08 AM [id number]) Balance Tests Tandem Tandem Standing 40 sec bilaterally PT-OP-E Functional Tests Start: 03/10/23 10:34 Freq: Status: Active Protocol: Document 05/02/23 11:35 AM (Rec: 05/03/23 13:08 AM [id number]) Functional Tests 30 Second Sit to Stand Test Score 10 Comments hi-low table at 20 in PT-OP-G Mobility & Gait Start: 03/10/23 10:34 Freq: Status: Active Protocol: Document 03/10/23 10:35 AM (Rec: 03/10/23 12:55 AM [id number]) OP Gait Assessment Gait Gait Assistance Required: Independent Assistive Devices Assistive Device None Comments Gait Comments femoral MR during gait PT-OP-M Strength Start: 03/10/23 10:34 Freq: Status: Active Protocol: Document 03/30/23 13:32 AM (Rec: 03/30/23 13:41 AM [id number]) Hip Strength Hip Manual Muscle Testing Left Flexion (L2) 4 Good Extension (S1) 4 Good Abduction 4 Good Adduction 4 Good Right Flexion (L2) 4 Good Extension (S1) 4 Good Abduction 4 Good Adduction 4 Good Knee Strength Knee Manual Muscle Testing Left Flexion (S2) 4 Good Extension (L3) 4 Good Right Flexion (S2) 4 Good Extension (L3) 4 Good PT-OP-Q Treatments Start: 03/10/23 10:34 Freq: Status: Active Protocol: Document 05/09/23 12:19 AM (Rec: 05/09/23 13:39 AM [id number]) Cardio Equipment Recumbent Elliptical (Biodex) Duration (Minutes) 6 Resistance 5 Seat Position 8 Gym Equipment Shuttle Recovery Unilateral Squats Resistance 37 (1 navy) Shuttle Recovery Platform Stable Reps/Time x1 min ea Bilateral Squats Resistance 62# (2 navy) Reps/Time 2x1 min Therapeutic Exercises Supine Exercises Bridge Reps/Minutes x10 Sidelying Exercises Clamshell Side bilateral Reps/Minutes x15 Standing Exercises hip extension Reps/Minutes 2x10 Comments decreased resistance to improve trunk stabilization Calf raise Equipment Used at railing Reps/Minutes x20 Hip abduction Resistance Imperial-AROM Reps/Minutes 2x10 Comments Decreased resistance to improve trunk stabilization during movement Chair squat Standing Exercise Name hurst chair Reps/Minutes 2x10 Self-Care/Home Management Treatment Education Patient Education Home Exercise Program Other Education updated HEP PT-OP-T Assessment and Plan Start: 03/10/23 10:34 Freq: Status: Active Protocol: Document 05/09/23 12:19 AM (Rec: 05/09/23 13:39 AM [id number]) Physical Therapy Assessment Goals SLS Senior Care Goal (LTG) Pt able to SLS for 10 seconds cleo LTG Duration 05/19/23 HEP Assembler Bonding Goal (LTG) Pt independent with HEP or gym program LTG Duration 05/19/23 30 sec STS squat Impairment Strength Impairment Pt able to complete 7 STS squats at hi-low table at 20 in height. Short Term Goal (STG) Pt able to complete 10 STS squats at surface at 20 in height. 03/30/23: Goal Achieved STG Duration 03/31/23-achieved Senior Care Goal (LTG) Pt able to complete 13 STS squats at hi-low table at height of 20 in. 04/18/23: Progressing towards goal. Pt able to do 10 in 30 seconds. LTG Duration 05/19/23 Strength Impairment Strength Impairment Pt with gross LE strength of 4 -/5/ Short Term Goal (STG) Pt with gross LE strength of 4 /5. 03/30/23: Achieved 4/5 STG Duration 03/31/23-achieved Assembler Bonding Goal (LTG) Pt with gross LE strength of 4 +/5 05/02/23: Pt with 4/5 LE gross strength LTG Duration 05/19/23 Assessment Summary Assessment Pt given updated HEP today. Pt instructed to do HEP tomorrow and will finalize next tx. Pt demonstrates continued fatigue with exercises. Pt with difficulty maintaining erect trunk with resisted abduction/extension with improved form with AROM only. Pt demonstrates improved LE alignment with STS squats compared to IE. Pt will be reassessed next session and d/ c if appropriate. Physical Therapy Plan Frequency and Duration Frequency of Treatment 2x/Week Duration of treatment (weeks) 10 Plan of Care Start Date 03/10/23 Plan of Care End Date 05/19/23 Therapeutic Interventions Therapeutic Interventions Balance Training,Coordination Training,Gait Training,Home Exercise Program,Joint Mobilizations,Manual Therapy, Neuromuscular Re-education, Patient/Caregiver Education, Self-Care/Home Management,Soft Tissue Mobilization,Taping, Therapeutic Activities, Therapeutic Exercises Modalities Cold Pack/Ice Massage,Electric Stimulation,Hot Packs, Ultrasound Next Visit Focus/Plan Next Note Type Discharge Summary Next Visit Plan progress HEP, balance and dynamic gait activities.
--- NOTE | 2023-05-11 10:32 | PT.OTN ---
Current Diagnoses Unspecified sequelae of cerebral infarction (05/11/23) Physical Therapy Treatment Note PT-OP-A Visit Information Start: 03/10/23 10:34 Freq: Status: Active Protocol: Document 05/11/23 10:32 AM (Rec: 05/11/23 11:47 AM [id number]) Out-Patient Physical Therapy Visit Information Visit Information Visit Type Discharge Summary Visit Start Time 10:32 Visit Stop Time 11:15 Total Visit Minutes 43 Visit Number 18 PT-OP-B Current Condition Start: 03/10/23 10:34 Freq: Status: Active Protocol: Document 03/22/23 10:36 AM (Rec: 03/22/23 11:29 AM [id number]) Current Condition History of Current Condition Onset Date 02/08/23 Current Complaints Balance, falls History of Current Condition Pt reports that she has had 2 recent TIA's on February 08. Pt reports that she has had TIA's in the past and her brain MRI showed prior stroke. She went to the ER and they did not admit her at that time . Pt reports that she has been having issues with her balance for 6+ months prior to recent TIA. Pt also has macular degeneration and reports difficulty seeing in the dark. Pt reports that she had a fall and hit her head. Pt reports frequent falls. Pt reports difficulty with ascending/descending stairs. Pt reports difficulty with walking on uneven terrain. Pt reports that she has had 2-3 falls in the last few months. Pt reports getting in and out of tub is difficult. She thinks she might need a shower chair. Pt reports that she does not use an AD, though will often hang on to her when ambulating in the community. Prior Treatments and Tests Brain MRI Future Testing and Treatments Planned Neurologist PT-OP-C Subjective Start: 03/10/23 10:34 Freq: Status: Active Protocol: Document 05/11/23 10:32 AM (Rec: 05/11/23 11:47 AM [id number]) OP-PT Subjective Patient Comments Patient Comments Pt agreeable to d/c today. Pt reports good understanding of HEP. Pt reports that she is now able to go up her stairs at home reciprocally and without hand rail. PT-OP-D Balance Start: 03/10/23 10:34 Freq: Status: Active Protocol: Document 05/02/23 11:35 AM (Rec: 05/03/23 13:08 AM [id number]) Balance Tests Tandem Tandem Standing 40 sec bilaterally PT-OP-E Functional Tests Start: 03/10/23 10:34 Freq: Status: Active Protocol: Document 05/11/23 10:32 AM (Rec: 05/11/23 11:47 AM [id number]) Functional Tests 30 Second Sit to Stand Test Score 11 Comments 19 in chair PT-OP-G Mobility & Gait Start: 03/10/23 10:34 Freq: Status: Active Protocol: Document 03/10/23 10:35 AM (Rec: 03/10/23 12:55 AM [id number]) OP Gait Assessment Gait Gait Assistance Required: Independent Assistive Devices Assistive Device None Comments Gait Comments femoral MR during gait PT-OP-M Strength Start: 03/10/23 10:34 Freq: Status: Active Protocol: Document 05/11/23 10:32 AM (Rec: 05/11/23 11:47 AM [id number]) Hip Strength Hip Manual Muscle Testing Left Flexion (L2) 4+ Good+ Extension (S1) 4+ Good+ Abduction 4+ Good+ Adduction 4+ Good+ External Rotation 4 Good Internal Rotation 4 Good Right Flexion (L2) 4+ Good+ Extension (S1) 4+ Good+ Abduction 4+ Good+ Adduction 4+ Good+ External Rotation 4 Good Internal Rotation 4 Good Knee Strength Knee Manual Muscle Testing Left Flexion (S2) 4+ Good+ Extension (L3) 4 Good Right Flexion (S2) 4 Good Extension (L3) 4 Good PT-OP-Q Treatments Start: 03/10/23 10:34 Freq: Status: Active Protocol: Document 05/11/23 10:32 AM (Rec: 05/11/23 11:47 AM [id number]) Cardio Equipment Recumbent Elliptical (Biodex) Duration (Minutes) 7 Resistance 5 Seat Position 8 Therapeutic Exercises Standing Exercises hip extension Equipment Used // bars Reps/Minutes 2x10 Calf raise Equipment Used at railing Reps/Minutes x20 Hip abduction Resistance AROM Reps/Minutes 2x10 Chair squat Standing Exercise Name hurst chair Equipment Used // bars Reps/Minutes 2x10 Neuro Re-Education Treatment Balance Activities Dynamic gait Details head turns side to side, up/ down, backwards walking, EC, high knee Surface stable SLS Surface Stable Equipment // bars Reps/Duration 2x30 sec attempts on ea LE Tandem walking Details tandem walking Reps/Duration x50 ft Tandem stance Surface stable Reps/Duration x1 min ea LE PT-OP-T Assessment and Plan Start: 03/10/23 10:34 Freq: Status: Active Protocol: Document 05/11/23 10:32 AM (Rec: 05/11/23 11:47 AM [id number]) Physical Therapy Assessment Goals SLS Shelter Goal (LTG) Pt able to SLS for 10 seconds cleo LTG Duration 05/19/23 HEP Customer Development Representative Goal (LTG) Pt independent with HEP or gym program 05/11/23: Pt independent with HEP. LTG Duration 05/19/23 30 sec STS squat Impairment Strength Impairment Pt able to complete 7 STS squats at hi-low table at 20 in height. Short Term Goal (STG) Pt able to complete 10 STS squats at surface at 20 in height. 03/30/23: Goal Achieved STG Duration 03/31/23-achieved Shelter Goal (LTG) Pt able to complete 13 STS squats at hi-low table at height of 20 in. 04/18/23: Progressing towards goal. Pt able to do 10 in 30 seconds. 05/11/23: Pt with improvement since IE with 11 STS Squats in 30 seconds at chair at 19 in height. LTG Duration 05/19/23 Strength Impairment Strength Impairment Pt with gross LE strength of 4 -/5/ Short Term Goal (STG) Pt with gross LE strength of 4 /5. 03/30/23: Achieved 4/5 STG Duration 03/31/23-achieved Customer Development Representative Goal (LTG) Pt with gross LE strength of 4 +/5 05/02/23: Pt with 4/5 LE gross strength 05/11/23: Pt demonstrates improved strength since last assessment. Pt demonstrates 4/ 5-4+/5 hip and knee strength cleo LTG Duration 05/19/23 Assessment Summary Assessment Pt demonstrates good understanding of HEP. Pt agreeable to d/c today. Pt demonstrates improved overall balance, strength and gait since start of PT. Pt with greatest difficulty with ambulating with horizontal head turns, though demonstrates improved pina with this activity. Pt instructed to continued HEP and encouraged to join a gym to continue to progress strength and endurance. Physical Therapy Plan Frequency and Duration Frequency of Treatment 2x/Week Duration of treatment (weeks) 10 Plan of Care Start Date 03/10/23 Plan of Care End Date 05/19/23 Therapeutic Interventions Therapeutic Interventions Balance Training,Coordination Training,Gait Training,Home Exercise Program,Joint Mobilizations,Manual Therapy, Neuromuscular Re-education, Patient/Caregiver Education, Self-Care/Home Management,Soft Tissue Mobilization,Taping, Therapeutic Activities, Therapeutic Exercises Modalities Cold Pack/Ice Massage,Electric Stimulation,Hot Packs, Ultrasound Discharge Physical Therapy Discharge Reasons Goals Met Discharge Comments Pt attended 18 PT visits. Pt demonstrated improved strength and balance since start of PT . Pt demonstrates good understanding of HEP and encouraged to continue. Next Visit Focus/Plan Next Note Type Discharge Summary Next Visit Plan progress HEP, balance and dynamic gait activities.
== END 2023-05-16 10:51 | disposition home or self-care (01) ==
LOC: PHYS 10:30
PROVIDERS: Family Provider Family Medicine; PCP Family Medicine; Referring Provider Family Medicine; Visit Provider Family Medicine
DX: I69.30 Unspecified sequelae of cerebral infarction (principal)
CPT/HCPCS: 97110; 97112; 97161

== ENCOUNTER → 2023-08-01 16:01 | Outpatient (CLI) | payer OTHER, SELFPAY ==
[2019-04-19 19:18] VITALS: BMI 28.0
--- NOTE | 2023-08-01 | DI.MG.S_ITS ---
BILATERAL DIGITAL SCREENING MAMMOGRAM 3D/2D WITH CAD POST LUMPECTOMY: 08/01/2023 CLINICAL: Routine screening. Personal history of left breast cancer. Family history of breast cancer. Comparison is made to exams dated: 07/30/2022 mammogram, 07/29/2021 mammogram, and 07/28/2020 mammogram - [facility]. There are scattered areas of fibroglandular density in both breasts (category b / 25%-50% glandular tissue). Current study was also evaluated with a Computer Aided Detection (CAD) system. There is a stable benign area of fat necrosis in the left breast. There also are benign calcifications in the right breast. Additionally, there are stable benign calcifications in the left breast. Additionally, there also are benign post operative findings in the left breast. No significant masses, calcifications, or other findings are seen in either breast. There has been no significant interval change. IMPRESSION: BENIGN There is no mammographic evidence of malignancy. A 1 year screening mammogram is recommended. This exam was interpreted at Station ID: [id number]. NOTE: For mammograms, a report in lay terms will be sent to the patient. Approximately 15% of breast malignancies will not be visualized mammographically. In the management of a palpable breast mass, a negative mammogram must not discourage biopsy of a clinically suspicious lesion. Electronically Signed By: Stefano gates/[email or web address]:08/02/2023 08:26:00 copy to: Mara Carter letter sent: Normal Exam ACR BI-RADS Category 2: Benign Finding(s) [id number]
== END ==
PROVIDERS: Family Provider Family Medicine; PCP Family Medicine; Referring Provider Family Medicine; Visit Provider Family Medicine
DX: Z12.31 Encounter for screening mammogram for malignant neoplasm of breast (principal); Z85.3 Personal history of malignant neoplasm of breast; Z80.3 Family history of malignant neoplasm of breast; R92.323 Mammographic fibroglandular density, bilateral breasts
CPT/HCPCS: 77063; 77067

== ENCOUNTER → 2024-08-07 16:27 | Outpatient (CLI) | payer OTHER, SELFPAY ==
[2019-04-19 19:18] VITALS: BMI 28.0
--- NOTE | 2024-08-07 16:30 | DI.MG.S_ITS ---
BILATERAL DIGITAL SCREENING MAMMOGRAM 3D/2D WITH CAD POST LUMPECTOMY: 08/07/2024 CLINICAL: Routine screening. Personal history of left breast cancer. Family history of breast cancer. Comparison is made to exams dated: 08/01/2023 mammogram, 07/30/2022 mammogram, 07/29/2021 mammogram, 07/28/2020 mammogram, 07/27/2019 mammogram, and 07/25/2018 mammogram - [facility]. There are scattered areas of fibroglandular density (category b / 25%-50% glandular tissue). Current study was also evaluated with a Computer Aided Detection (CAD) system. There are benign post operative findings in the left breast. No significant masses, calcifications, or other findings are seen in either breast. There has been no significant interval change. IMPRESSION: BENIGN There is no mammographic evidence of malignancy. A 1 year screening mammogram is recommended. This exam was interpreted at Station ID: [id number]. NOTE: For mammograms, a report in lay terms will be sent to the patient. Approximately 15% of breast malignancies will not be visualized mammographically. In the management of a palpable breast mass, a negative mammogram must not discourage biopsy of a clinically suspicious lesion. Electronically Signed By: Luz Crump M.D., Ph.D. savanna/[email or web address]:08/08/2024 07:25:00 copy to: Mara Carter letter sent: Normal Exam ACR BI-RADS Category 2: Benign
== END ==
PROVIDERS: Family Provider Family Medicine; PCP Family Medicine; Referring Provider Family Medicine; Visit Provider Family Medicine
DX: Z12.31 Encounter for screening mammogram for malignant neoplasm of breast (principal); Z85.3 Personal history of malignant neoplasm of breast; Z80.3 Family history of malignant neoplasm of breast
CPT/HCPCS: 77063; 77067

== ENCOUNTER → 2024-09-03 10:06 | Outpatient (CLI) | payer OTHER, SELFPAY ==
[2019-04-19 19:18] VITALS: BMI 28.0
--- NOTE | 2024-09-03 10:07 | DI.RAD.S_ITS ---
PROCEDURE: XR DEXA AXIAL SKELETON INDICATIONS: OSTEOPOROSIS COMPARISON: [facility], , XR DEXA AXIAL SKELETON, 08/31/2022, 10:31. FINDINGS: Lumbar Spine: Bone mineral density 0.647 (previously 0.644) g/cm2, T score -4.1 (previously-4.0). Left Femoral Neck: Bone mineral density 0.545 (previously 0.566) g/cm2, T score -2.7 (previously-2.6) Left Hip: Bone mineral density 0.600 (previously 0.611) g/cm2, T score -2.8 (previously-2.7). Fracture Risk Calculation (when applicable): 10-year fracture risk of a major osteoporotic fracture 27 percent and of a hip fracture 9.1 percent. (T score greater or equal to -1.0 to: NORMAL) (T score from -1.1 to -2.4: OSTEOPENIA) (T score less than or equal to -2.5: OSTEOPOROSIS) IMPRESSION: Osteoporosis---recommend repeat DEXA in 2 years or less for reassessment of response to treatment. Follow-up guidelines as follows: Osteoporosis: Consider a repeat DEXA and Vertebral Fracture Assessment (VFA) exam in 2 years or sooner if medically necessary, to reassess this patient's status. Osteopenia: Consider a repeat DEXA in 2-3 years to reassess this patient's status, or if there is a new clinical indication. Normal: Consider a repeat DEXA in 5 years or sooner, or if there is a new clinical indication. All treatment decisions require clinical judgment and consideration of individual patient factors, including patient preferences, comorbidities, previous drug use, risk factors not captured in the FRAX model (e.g., frailty, falls, vitamin D deficiency, increased bone turnover, interval significant decline in bone density ) and possible under- or over-estimation of fracture risk by FRAX. In addition, the NOF Guide recommends that FDA-approved medical therapies be considered in postmenopausal women and men age >= 50 years with a: * Hip or vertebral (clinical or morphometric) fracture * T-score of <=-2.5 at the spine or hip * Ten-year fracture probability by FRAX of >= 3% for hip fracture or >=20% for major osteoporotic fracture. Dictated by: Uriel Bright M.D. on 09/04/2024 at 2:55 Approved by: Uriel Bright M.D. on 09/04/2024 at 2:57
== END ==
PROVIDERS: Family Provider Family Medicine; PCP Family Medicine; Referring Provider Family Medicine; Visit Provider Family Medicine
DX: M81.0 Age-related osteoporosis without current pathological fracture (principal)
CPT/HCPCS: 77080

== ENCOUNTER 2024-12-28 12:02 | Emergency (ER) | payer OTHER, SELFPAY ==
[2019-04-19 19:18] VITALS: BMI 28.0
--- NOTE | 2024-12-28 12:03 | ED.GENADULT ---
HPI - General Adult General Chief complaint: Syncope Stated complaint: Syncope Time Seen by Provider: 12/28/24 12:03 Source: patient, RN notes reviewed and old records reviewed Mode of arrival: EMS Limitations: no limitations History of Present Illness HPI narrative: 79-year-old female history of hypothyroidism, prior breast cancer treated with chemo and radiation no longer under treatment, prior TIA who had a syncopal episode while at the local 28 of December.. Patient notes she was had recent upper respiratory symptoms with a scratchy throat and some nasal congestion. No fevers. No headache. No chest pain or shortness of breath. She states she was started to feel lightheaded while she was standing for a prolonged period sounds like some individual sat her down and then she had syncopal episode. Described as brief, return to baseline but had another near syncopal episode when EMS arrived to move her over to their gurney. Patient denies any abdominal back or flank pain. Denies any swelling in extremities. She was had some nausea upon arrival but no vomiting. No loss of bowel or bladder control. He was noted to be diaphoretic in route. Patient was moved to local hot lobby to help decrease her temperature while awaiting EMS. Patient states she was feeling improved but still feels under the weather. Noted she felt a little bit unwell prior to going to the upright. She notes she takes medication for thyroid and 1 additional medication. She states she was had prior surgery for breast cancer with chemo and radiation but completed treatment. Reports allergies but does not recall them. No tobacco, no alcohol no recreational drugs. She was accompanied by her . Per EMS patient's initial blood pressure was 40 systolic initially improving with 500 mL bolus fluids to 90 systolic. Related Data Home Medications ?Medication ?Instructions ?Recorded ?Confirmed acetaminophen 500 mg tablet 1,000 mg PO Q4H PRN PAIN ##0 01/24/13 01/16/20 (Tylenol Extra Strength) ascorbic acid (vitamin C) 500 mg 500 mg PO DAILY ##0 01/24/13 01/16/20 tablet levothyroxine 88 mcg tablet 75 mcg PO QAM ##0 03/24/16 09/29/22 (Synthroid) calcium carbonate (Calcium 600) 600 mg PO DAILY 04/06/19 09/29/22 cholecalciferol (vitamin D3) 25 1,000 unit PO DAILY 04/06/19 09/29/22 mcg (1,000 unit) capsule (Vitamin D3) fluticasone propionate 50 2 spray intranasal DAILY 04/06/19 09/29/22 mcg/actuation nasal spray,suspension ibuprofen 200 mg tablet 200 mg PO NEEDED PRN PAIN 04/06/19 09/29/22 clopidogrel 75 mg tablet 75 mg PO DAILY 01/16/20 09/29/22 clobetasol 0.05 % shampoo 1 applic topical DAILY 09/29/22 09/29/22 ketoconazole 2 % shampoo 1 applic topical 3XW 09/29/22 09/29/22 ranitidine HCl 150 mg capsule 150 mg DAILY 09/29/22 09/29/22 tacrolimus 0.1 % topical ointment 1 applic topical BID 09/29/22 09/29/22 Previous Rx's ?Medication ?Instructions ?Recorded naproxen 500 mg tablet,delayed 500 mg PO BID PRN pain #20 tabs 08/03/19 release (EC-Naproxen) Allergies Allergy/AdvReac Type Severity Reaction Status Date / Time cephalexin Allergy Unknown Verified 12/28/24 12:05 clindamycin Allergy Unknown Verified 12/28/24 12:05 Sulfa (Sulfonamide AdvReac Severe PASSED OUT Verified 12/28/24 12:05 Antibiotics) PRESERVATIVES Allergy Unknown Uncoded 12/28/24 12:05 SEASONAL Allergy Unknown Uncoded 12/28/24 12:05 Review of Systems Review of Systems ROS Unobtainable: All systems reviewed & are unremarkable except as noted in HPI and below Patient History Medical History Tinnitus Right Achilles tendinitis Acid reflux Thyroid disease Port-A-Cath in place (~06/2012) Breast cancer, left (~2012) Surgical History Hx of left mastectomy Hx of tubal ligation S/P lumpectomy, left breast (~2012) Social History household members: spouse alcohol intake: former alcohol intake frequency: 0-2 drinks per day Exam Narrative Exam Narrative: GENERAL: Alert and oriented x three, elderly female in mild distress HEENT: Head normocephalic, atraumatic, EOMI, pupils reactive, face symmetric, moist mucous membranes, no facial droop NECK: Supple, full range of motion CARDIOVASCULAR: Bradycardic but regular rate and rhythm without murmurs, rubs or gallops. No JVD. No edema bilateral lower extremities. RESPIRATORY: Breath sounds equal bilaterally, no wheezes rales or rhonchi. No tachypnea or accessory muscle use ABDOMEN: Soft, nontender. Normoactive bowel sounds all 4 quadrants. No guarding or rebound, rigidity, no mass : No CVA tenderness EXTREMITIES: Normal range of motion, no clubbing or edema. Neurovascularly intact NEUROLOGICAL: Cranial nerves II through XII grossly intact. Moving all extremities SKIN: Warm, dry, no petechiae, no rashes or lesions. Initial Vital Signs Initial Vital Signs: Vital Signs Temperature 97.7 F 12/28/24 12:05 Pulse Rate 64 12/28/24 12:05 Respiratory Rate 20 12/28/24 12:05 Blood Pressure 134/70 12/28/24 12:05 Pulse Oximetry 99 12/28/24 12:05 Oxygen Delivery Method Room Air 12/28/24 12:05 Course Orders Ordered: ED Orders 12/28/24 12:10 XR chest 1V Stat Complete Blood Count AUTO DIFF Stat Comprehensive Metabolic Panel Stat Covid-19 + FLU A/B + RSV - PCR Stat Lipase Stat NT-proBNP (BNP-Adult 18+) Stat Troponin & CK Cardiac Panel Stat EKG-12 Lead Stat Discontinued Medications Ondansetron HCl (Ondansetron 4 Mg/2 Ml Inj) 4 mg IV NOW ONE Stop: 12/28/24 12:11 Last Admin: 12/28/24 12:19 Dose: 4 mg Documented By: EKATERINA Vital Signs Vital signs: Vital Signs - 8 hr 12/28/24 12:05 12/28/24 12:30 12/28/24 12:31 Temperature 97.7 F Pulse Rate 64 59 L Respiratory Rate 20 14 Blood Pressure 134/70 114/59 L Pulse Oximetry 99 95 Oxygen Delivery Method Room Air 12/28/24 13:00 12/28/24 13:30 12/28/24 13:30 Temperature Pulse Rate 74 66 Respiratory Rate 17 17 Blood Pressure 123/58 L Pulse Oximetry 99 Oxygen Delivery Method Medical Decision Making Lab Data 12/28/24 12:10 12/28/24 12:10 Labs: Lab Results 12/28/24 Range/Units 12:10 WBC 7.1 (4.5-11.0) X10^3/uL RBC 4.52 (4.0-5.2) X10^6/uL Hgb 14.8 (12.0-16.0) g/dL Hct 42.9 (36-46) % MCV 95.0 (80-100) fL MCH 32.7 (26-34) PG MCHC 34.4 (30-36) % RDW 13.1 (11.6-14.8) % Plt Count 244 (150-400) X10^3/uL Neut % (Auto) 48.9 L (50-75) % Lymph % (Auto) 26.7 (25-40) % [place] % (Auto) 18.5 H (3-14) % Eos % (Auto) 4.9 H (2-4) % Baso % (Auto) 1.0 (0-2) % Neut # (Auto) 3500 (4626-3880) /uL Lymph # (Auto) 1900 (7795-3325) /uL [place] # (Auto) 1300 H (0-900) /uL Eos # (Auto) 300 (0-450) /uL Baso # (Auto) 100 (0-100) /uL Sodium 135 L (137-145) mmol/L Potassium 4.2 (3.4-5.1) mmol/L Chloride 102 (98-107) mmol/L Carbon Dioxide 24 (22-32) mmol/L BUN 15 (7-17) mg/dL Creatinine 0.95 (0.52-1.04) mg/dL Estimated GFR > 60 (>60) mL/min BUN/Creatinine Ratio 15.8 (6-22) Glucose 144 H (70-99) mg/dL Calcium 8.9 (8.4-10.2) mg/dL Total Bilirubin 0.7 (0.2-1.3) mg/dL AST 30 (14-36) IU/L ALT 22 (<35) IU/L Alkaline Phosphatase 53 (38-126) U/L Total Creatine Kinase 32 (30-135) U/L Troponin I < 0.012 (0.01-0.034) ng/mL NT-Pro-B Natriuret Pep 161 (<450) pg/mL Total Protein 7.7 (6.3-8.2) g/dL Albumin 4.4 (3.5-5.0) g/dL Globulin 3.3 (1.7-4.1) g/dL Albumin/Globulin Ratio 1.3 (1.0-2.8) Lipase 127 (23-300) U/L SARS-CoV-2 (PCR) Negative (Negative) Influenza A (RT-PCR) Flu a negative (NEGATIVE) Influenza B (RT-PCR) Flu b negative (NEGATIVE) RSV (PCR) Negative (Negative) ECG Data Attestation: I personally reviewed and interpreted this ECG as follows: Prior ECG tracings: not available for review Interpretation: Sinus rhythm rate of 62 [place] 190 QRS is 78 QTC of [address] elevation or depression noted. Patient has a prior from 02/08/2023 appears similar to today's. MDM Narrative Medical decision making narrative: 79-year-old female with a syncopal episode while standing and a local [place] parade in the heat was standing for a prolonged period of time notes she was also recently had some mild upper respiratory symptoms and congestion. Denies any other symptoms. Labs show normal CBC, predominance of monocytes, sodium is 135 electrolytes are otherwise appropriate BUN creatinine normal glucose is 144 troponins less than 0.012 with a BNP of 161 CK of 32. EKG sinus rhythm, no acute ST changes appears similar to February 13, 2023 Chest x-ray shows normal size unchanged degenerative osseous findings left hip arthroplasty. COVID/influenza/RSV is negative Patient received a L of fluids, Zofran. Patient had ambulation trial fluids patient feels much improved. She feels comfortable with discharge home. [place] appropriate for discharge. Suspect patient had combination of vagal episode longstanding episode of standing while watching a parade in the heat with recent upper respiratory infection. Discussed return precautions. Discharge Plan Departure Patient Disposition: Home Clinical Impression: Syncope Instructions: DI for Syncope in Adults (Fainting) Activity Restrictions/Additional Instructions: Please follow up for recheck as needed. You are hydrating regularly today. Please return if you have recurrent episodes of lightheadedness or passing out, new chest pain or shortness of breath, persistent vomiting, new swelling of your extremities, diaphoresis or sweatiness, new fevers or other new or concerning changes. Prescriptions: No Action acetaminophen [Tylenol Extra Strength] 500 MG tablet 1,000 mg PO Q4H PRN (Reason: PAIN) Qty: 0 ascorbic acid (vitamin C) 500 mg Tablet 500 mg PO DAILY Qty: 0 levothyroxine [Synthroid] 88 MCG tablet 75 mcg PO QAM Qty: 0 calcium carbonate [Calcium 600] 600 mg calcium (1,500 mg) Tablet 600 mg PO DAILY fluticasone propionate 50 mcg/actuation [place],Suspension 2 spray INTRANASAL DAILY cholecalciferol (vitamin D3) [Vitamin D3] 1,000 unit Capsule 1,000 unit PO DAILY ibuprofen 200 MG tablet 200 mg PO NEEDED PRN (Reason: PAIN) clopidogrel 75 mg Tablet 75 mg PO DAILY ketoconazole 2 % Shampoo 1 applic TOPICAL 3XW tacrolimus 0.1 % Ointment 1 applic TOPICAL BID ranitidine HCl [Zantac] 150 mg Capsule 150 mg DAILY clobetasol 0.05 % Shampoo 1 applic TOPICAL DAILY naproxen [EC-Naproxen] 500 mg tablet,delayed release (DR/EC) 500 mg PO BID PRN (Reason: pain) Qty: 20 0RF Referrals: Mara Carter MD [Primary Care Provider, Family Practice] Stand Alone Forms: Patient Portal/API
[2024-12-28 12:05] VITALS: BP 134/70; PULSE 64; RESP 20; TEMP 36.5; O2SAT 99; BMI 26.5
--- NOTE | 2024-12-28 12:10 | DI.RAD.S_ITS ---
PROCEDURE: XR CHEST 1V INDICATIONS: syncope, at the [place], recent cold TECHNIQUE: One view of the chest was acquired. COMPARISON: [facility], CR, XR CHEST 1V, 08/03/2019, 19:23. FINDINGS AND IMPRESSION: On this single view study, no airspace consolidation or pleural effusion is seen. Normal heart size, unchanged. Degenerative osseous findings and left shoulder arthroplasty. Dictated by: Nicholas Patten M.D. on 12/28/2024 at 11:30 Approved by: Nicholas Patten M.D. on 12/28/2024 at 11:30
--- NOTE | 2024-12-28 12:14 | EKG_ITS ---
[address] [address] Test Date: 2024-12-28 Pat Name: Callie Berkowitz Department: Room: Gender: Female Ux Specialist: SHEEBA : 1945 Requested By: Order Number: [id number] Reading MD: Kale Dyson MD Measurements Intervals [place] Rate: 62 P: 63 [place]: 190 QRS: 17 QRSD: 78 T: 26 QT: 412 QTc: 418 Interpretive Statements Normal sinus rhythm Low voltage QRS Electronically Signed On 12-29-2024 7:55:04 PDT by Kale Dyson MD
[2024-12-28] MEDS: ONDANSETRON 4 MG/2 ML INJ IV (12:19)
[2024-12-28 12:20] LABS: Add Manual Diff / Slide Review NO; Hematocrit 42.9 % (36-46); Hemoglobin 14.8 g/dL (12.0-16.0); Lymphocytes Absolute Auto 1900 /uL (1100-4500); Mean Corpuscular HGB Conc 34.4 % (30-36); Mean Corpuscular Hemoglobin 32.7 PG (26-34); Mean Corpuscular Volume 95.0 fL (80-100); Platelet Count 244 X10^3/uL (150-400)
[2024-12-28 12:30] VITALS: BP 114/59
[2024-12-28 12:30] LABS: Alanine Aminotransferase 22 IU/L (<35); Albumin 4.4 g/dL (3.5-5.0); Albumin Globulin Ratio 1.3 (1.0-2.8); Alkaline Phosphatase 53 U/L (38-126); Blood Urea Nitrogen 15 mg/dL (7-17); Calcium 8.9 mg/dL (8.4-10.2); Carbon Dioxide 24 mmol/L (22-32); Chloride 102 mmol/L (98-107); Creatine Kinase 32 U/L (30-135); Estimated Glomerular Filt Rate > 60 mL/min (>60); Globulin 3.3 g/dL (1.7-4.1); Glucose 144 mg/dL (70-99); Lipase 127 U/L (23-300); Sodium 135 mmol/L (137-145); Total Protein 7.7 g/dL (6.3-8.2)
[2024-12-28 12:31] VITALS: PULSE 59; RESP 14; O2SAT 95
[2024-12-28 12:32] LABS: HEMOLYSIS 56 (0-50)
[2024-12-28 12:33] LABS: Potassium 4.2 mmol/L (3.4-5.1)
[2024-12-28 12:42] LABS: NT-proBNP (BNP-Adult 18+) 161 pg/mL (<450); Troponin I < 0.012 ng/mL (0.01-0.034)
[2024-12-28 12:55] LABS: Influenza A - CEPHEID Flu A NEGATIVE (NEGATIVE); Influenza B - CEPHEID Flu B NEGATIVE (NEGATIVE)
[2024-12-28 12:57] LABS: COVID-19 CEPHEID 4-PLEX PCR Negative (Negative)
[2024-12-28 13:00] VITALS: PULSE 74; RESP 17
--- NOTE | 2024-12-28 13:12 | PC.NURSE ---
Ambulated pt to bathroom after fluid bolus complete without issue, pt states she is feeling much better, denies dizziness or weakness. She states she feels very tired, appears uncomfortable and pale.
[2024-12-28 13:30] VITALS: BP 123/58; PULSE 66; RESP 17; O2SAT 99
== END 2024-12-28 13:42 | disposition home or self-care (01) ==
PROVIDERS: Emergency Provider Emergency Medicine; Family Provider Family Medicine; PCP Family Medicine
DX: R55 Syncope and collapse (principal); R11.0 Nausea
CPT/HCPCS: 36415; 71045; 80053; 82550; 83690; 83880; 84484; 85025; 87637; 93005; 93010; 96374; 99284; J2405

== ENCOUNTER 2025-03-16 19:44 | Emergency (ER) | payer OTHER, SELFPAY ==
[2019-04-19 19:18] VITALS: BMI 28.0
[2025-03-16 19:46] VITALS: BP 175/81; PULSE 82; RESP 16; TEMP 36.5; O2SAT 99; BMI 26.5
--- NOTE | 2025-03-16 19:46 | DI.RAD.S_ITS ---
PROCEDURE: XR CHEST 1V INDICATIONS: Chest Pain TECHNIQUE: One view of the chest was acquired. COMPARISON: [facility], CR, XR CHEST 1V, 08/03/2019, 19:23. [facility], CR, XR CHEST 1V, 12/28/2024, 12:05. FINDINGS: Surgical changes and devices: Left shoulder arthroplasty hardware is seen. Left breast and left axillary clips are seen. Lungs and pleura: Lungs are clear. No pleural effusions or pneumothorax. Mediastinum: The cardiac contours are within normal limits. The aorta demonstrates calcification and tortuosity. Bones and chest wall: No suspicious bony lesions. Age-appropriate bony degenerative changes are seen. Mild dextroconvex scoliotic curvature is seen. Presumed necrosis can be seen within the breast. IMPRESSION: No acute cardiopulmonary abnormality is seen. Postoperative and degenerative changes are seen. Dictated by: Alex Walton M.D. on 03/16/2025 at 19:47 Approved by: Alex Walton M.D. on 03/16/2025 at 19:48
--- NOTE | 2025-03-16 19:53 | EKG_ITS ---
[address] [address] Test Date: 2025-03-16 Pat Name: Callie Berkowitz Department: [facility] Room: Gender: Female Licensed Optician: Yovani PFEIFFER : 1945 Requested By: Order Number: [id number] Reading MD: Kale Dyson MD Measurements Intervals [place] Rate: 89 P: 53 [place]: 170 QRS: 2 QRSD: 66 T: 8 QT: 340 QTc: 413 Interpretive Statements Normal sinus rhythm Electronically Signed On 03-17-2025 14:44:18 PDT by Kale Dyson MD
== END 2025-03-16 23:43 | disposition left against medical advice (07) ==
PROVIDERS: Emergency Provider Emergency Medicine; Family Provider Family Medicine; PCP Family Medicine
DX: R06.02 Shortness of breath (principal); R00.2 Palpitations; R07.9 Chest pain, unspecified
CPT/HCPCS: 36415; 71045; 93005; 93010; 99283